=== PATIENT | female | born 1930 | race Two or more races ===

== ENCOUNTER 2019-03-05 07:12 | Inpatient (IN) | payer MEDICARE, MEDICAID ==
[2019-03-05] VITALS (16 sets, daily range): BP systolic 80–145; BP diastolic 38–99
[~2019-03-05] VITALS: Ht 167.6 cm; Wt 72.6 kg
[~2019-03-05 07:12] MED LIST: ASCORBIC ACID500 MG ORAL; ATIVAN1 MG ORAL; DONEPEZIL HCL5 M2 ORAL; HYDRALAZINE HCL10 MG ORAL; METOPROLOL TART25 MG ORAL; OMEPRAZOLE20 M2 ORAL; RISPERDAL1 MG PO
[2019-03-05] MEDS ORDERED: Sodium Chloride 2,900 ML IVLG ONE (07:45)
[2019-03-05] MEDS ORDERED: Azithromycin 500 MG in NS 275 ML IV ONE (08:15)
[2019-03-05] MEDS ORDERED: Piperacillin/Tazobactam 3.375 GM in NS 110 ML IVPB ONE (08:15)
[2019-03-05] MEDS ORDERED: Zosyn 3.375gm inj ONE (08:15)
[2019-03-05 08:28] LABS: BASOPHILS % (AUTO) 0.8 % (0.0-2.0); EOSINOPHILS % (AUTO) 0.3 % (0.0-3.0); HEMATOCRIT 48.6 % (37.0-47.0); HEMOGLOBIN 15.8 G/DL (12.0-16.0); LYMPHOCYTES % (AUTO) 15.4 % (20.0-45.0); MEAN CORPUSCULAR VOLUME 89 FL (80-99); MONOCYTES % (AUTO) 6.1 % (1.0-10.0); NEUTROPHILS % (AUTO) 77.4 % (45.0-75.0); PLATELET COUNT 234 K/UL (150-450); RED BLOOD COUNT 5.46 M/UL (4.20-5.40); RED CELL DISTRIBUTION WIDTH 14.2 % (11.6-14.8); WHITE BLOOD COUNT 7.9 K/UL (4.8-10.8)
[2019-03-05 08:29] LABS: APPEARANCE,URINE SLIGHTLY CLOUDY; BILIRUBIN, URINE NEGATIVE (NEGATIVE); GLUCOSE, URINE (UA) NEGATIVE (NEGATIVE); KETONES,URINE NEGATIVE (NEGATIVE); LEUKOCYTE ESTERASE ,URINE 3+ (NEGATIVE); NITRITE,URINE NEGATIVE (NEGATIVE); PH,URINE 7 (4.5-8.0); PROTEIN,URINE 3+ (NEGATIVE); UROBILINOGEN,URINE NORMAL MG/DL (0.0-1.0)
[2019-03-05 08:38] LABS: ANION GAP 9 mmol/L (5-15); BLOOD UREA NITROGEN 21 mg/dL (7-18); CALCIUM 7.2 MG/DL (8.5-10.1); CARBON DIOXIDE 24 MMOL/L (21-32); CHLORIDE 109 MMOL/L (98-107); CREATININE 0.6 MG/DL (0.55-1.30); POTASSIUM 3.4 MMOL/L (3.5-5.1); SODIUM 142 MMOL/L (136-145)
[2019-03-05 08:39] LABS: COLOR,URINE YELLOW
[2019-03-05] MEDS ORDERED: Versed 50mg/D5W 100ml 100 ML IV ONE ×2 (08:45→10:00)
[2019-03-05 08:53] LABS: ALANINE AMINOTRANSFERASE 45 U/L (12-78); ALBUMIN 2.5 G/DL (3.4-5.0); ALBUMIN/GLOBULIN RATIO 0.7 (1.0-2.7); ALKALINE PHOSPHATASE 122 U/L (46-116); ASPARTATE AMINO TRANSFERASE 40 U/L (15-37); BILIRUBIN,TOTAL 0.5 MG/DL (0.2-1.0); CKMB 0.6 NG/ML (0.0-3.6); CREATINE KINASE 35 U/L (26-308)
[2019-03-05] MEDS ORDERED: Isovue-370 150ml vial INJ PRN (09:15)
--- NOTE | 2019-03-05 09:55 | Emergency Room Report ---
History of Present Illness General Chief Complaint: Dyspnea/Respdistress Source: Medical Record, EMS Present Illness HPI 88-year-old female presents ED for evaluation. Brought in by EMS for respiratory distress. Noted to be hypoxic by nursing staff this morning. EMS states that patient had bilateral crackles in both lungs. Started on CPAP without improvement. Patient in distress upon arrival. Unable to provide any additional history at this time. No reported fevers or chills. No other aggravating or relieving factors. 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 Hx Hypertension: Yes Hx Diabetes: Yes - TYPE 2 Hx Gastrointestinal Problems: Yes - G-TUBE History Of Psychiatric Problem: Yes - BIPOLAR , ALZHEIMERS, ANXIETY Review of Systems All Other Systems: limited Physical Exam Vital Signs Date Time Temp Pulse Resp B/P (MAP) Pulse Ox O2 Delivery O2 Flow Rate FiO2 03/05/19 06:57 62 43 73/46 (55) 94 Bi-pap 03/05/19 07:12 99.8 03/05/19 07:29 100 03/05/19 07:29 45.0 Sp02 EP Interpretation: reviewed, normal, abnormal General Appearance: severe distress, lethargic Head: normocephalic Eyes: bilateral eye normal inspection, bilateral eye PERRL ENT: normal ENT inspection Neck: normal inspection Respiratory: accessory muscle use, crackles Cardiovascular #1: tachycardia Gastrointestinal: normal inspection Rectal: deferred Genitourinary: no CVA tenderness Musculoskeletal: normal inspection Neurologic: other - nonverbal Psychiatric: other - nonverbal Skin: normal inspection Lymphatic: normal inspection Procedures Intubation Intubation : Consent: Verbal Intubation Method: orotracheal Tube Size (cm): 7.5 Medications: Etomidate, Rocuronium Breath Sounds after Intubation: equal Intubation Complications: no complications Post Intubation Xray: Yes Attempts: One Patient Tolerated: Well Complications: None Medical Decision Making Diagnostic Impression: Primary Impression: Respiratory distress Additional Impressions: Sepsis Qualified Codes: A41.9 - Sepsis, unspecified organism UTI (urinary tract infection) Qualified Codes: N39.0 - Urinary tract infection, site not specified Pneumonia Qualified Codes: J18.1 - Lobar pneumonia, unspecified organism ER Course Hospital Course 88-year-old F presenting to ED with respiratory distress, hypoxia Differential diagnoses include: Pneumonia, CHF exacerbation, pneumothorax, fluid overload Clinical course Patient placed on stretcher. Immediately intubated for airway protection. After initial history and physical, I ordered nebulizer treatments. I ordered labs, IV fluids, EKG, chest x-ray, blood cultures, UA, ABG. Labs -no leukocytosis noted, hemoglobin/hematocrit stable, electrolytes within normal limits, lactic 2.7, UA + bacteria ABG - pH 7.2, PCO2 45, O2 sat 99.4 on ventilator acidosis likely metabolic due to sepsis CXR -intubated, no obvious infiltrate CTA -no evidence of PE. Left perihilar infiltrate Given 30 cc/kg fluid bolus. Maintenance fluids started. Given broad-spectrum antibiotics. Case discussed with Dr. Sotomayor and he agreed to the patient to his service for further care and support I feel this is a highly complex case requiring extensive working including EKG/ Rhythm strip, Xray/CT/US, Blood/urine lab work, repeat exams while in ED, and administration of strong opiates/narcotics for pain control, admission to hospital or close patient follow up. Diagnosis - pneumonia, respiratory distress, sepsis, UTI Patient admitted to ICU in critical conditon Labs Test 03/05/19 07:00 03/05/19 07:28 03/05/19 09:13 White Blood Count 7.9 K/UL (4.8-10.8) Red Blood Count 5.46 M/UL (4.20-5.40) Hemoglobin 15.8 G/DL (12.0-16.0) Hematocrit 48.6 % (37.0-47.0) Mean Corpuscular Volume 89 FL (80-99) Mean Corpuscular Hemoglobin 28.9 PG (27.0-31.0) Mean Corpuscular Hemoglobin Concent 32.5 G/DL (32.0-36.0) Red Cell Distribution Width 14.2 % (11.6-14.8) Platelet Count 234 K/UL (150-450) Mean Platelet Volume 6.8 FL (6.5-10.1) Neutrophils (%) (Auto) 77.4 % (45.0-75.0) Lymphocytes (%) (Auto) 15.4 % (20.0-45.0) Monocytes (%) (Auto) 6.1 % (1.0-10.0) Eosinophils (%) (Auto) 0.3 % (0.0-3.0) Basophils (%) (Auto) 0.8 % (0.0-2.0) Sodium Level 142 MMOL/L (136-145) Potassium Level 3.4 MMOL/L (3.5-5.1) Chloride Level 109 MMOL/L (98-107) Carbon Dioxide Level 24 MMOL/L (21-32) Anion Gap 9 mmol/L (5-15) Blood Urea Nitrogen 21 mg/dL (7-18) Creatinine 0.6 MG/DL (0.55-1.30) Estimat Glomerular Filtration Rate mL/min (>60) Glucose Level 168 MG/DL (74-106) Lactic Acid Level 2.70 mmol/L (0.4-2.0) Calcium Level 7.2 MG/DL (8.5-10.1) Total Bilirubin 0.5 MG/DL (0.2-1.0) Aspartate Amino Transf (AST/SGOT) 40 U/L (15-37) Alanine Aminotransferase (ALT/SGPT) 45 U/L (12-78) Alkaline Phosphatase 122 U/L (46-116) Total Creatine Kinase 35 U/L (26-308) Creatine Kinase MB 0.6 NG/ML (0.0-3.6) Creatine Kinase MB Relative Index 1.7 Troponin I 0.015 ng/mL (0.000-0.056) Pro-B-Type Natriuretic Peptide 403 pg/mL (0-125) Total Protein 6.3 G/DL (6.4-8.2) Albumin 2.5 G/DL (3.4-5.0) Globulin 3.8 g/dL Albumin/Globulin Ratio 0.7 (1.0-2.7) Urine Color Yellow Urine Appearance Slightly cloudy Urine pH 7 (4.5-8.0) Urine Specific [place] 1.010 (1.005-1.035) Urine Protein 3+ (NEGATIVE) Urine Glucose (UA) Negative (NEGATIVE) Urine Ketones Negative (NEGATIVE) Urine Blood 5+ (NEGATIVE) Urine Nitrite Negative (NEGATIVE) Urine Bilirubin Negative (NEGATIVE) Urine Urobilinogen Normal MG/DL (0.0-1.0) Urine Leukocyte Esterase 3+ (NEGATIVE) Urine RBC 15-20 /HPF (0 - 2) Urine WBC 60-80 /HPF (0 - 2) Urine Squamous Epithelial Cells Few /LPF (NONE/OCC) Urine Bacteria Few /HPF (NONE) Arterial Blood pH 7.247 (7.350-7.450) Arterial Blood Partial Pressure CO2 45.2 mmHg (35.0-45.0) Arterial Blood Partial Pressure O2 427.8 mmHg (75.0-100.0) Arterial Blood HCO3 19.2 mmol/L (22.0-26.0) Arterial Blood Oxygen Saturation 99.4 % (95-100) Arterial Blood Base Excess -7.8 (-2-2) Garry Test Positive EKG Diagnostic Results Rate: tachycardiac Rhythm: NSR ST Segments: no acute changes ASA given to the pt in ED: No Rhythm Strip Diag. Results EP Interpretation: yes Rhythm: NSR, no PVC's, no ectopy Chest X-Ray Diagnostic Results Chest X-Ray Diagnostic Results : Chest X-Ray Ordered: Yes # of Views/Limited/Complete: 1 View Indication: Shortness of Breath EP Interpretation: Yes Interpretation: no consolidation, no effusion, no pneumothorax, no acute cardiopulmonary disease, other - intubated Impression: Other - intubated CT/MRI/US Diagnostic Results CT/MRI/US Diagnostic Results : Imaging Test Ordered: CTA Chest Impression no PE. L perihilar infitrate Last Vital Signs Date Time Temp Pulse Resp B/P (MAP) Pulse Ox O2 Delivery O2 Flow Rate FiO2 03/05/19 08:00 101 15 95/65 100 Mechanical Ventilator 03/05/19 07:29 45.0 100 03/05/19 07:12 99.8 Status: improved Disposition: ADMITTED INPATIENT Condition: Critical Referrals: NON PHYSICIAN (PCP) Leoncio Calhoun MD Mar 05, 2019 09:55
--- NOTE | 2019-03-05 10:18 | Diagnostic Imaging Report ---
EXAM: CT Chest With Intravenous Contrast CLINICAL HISTORY: SOB TECHNIQUE: Axial computed tomography images of the chest with intravenous contrast during the arterial phase of enhancement. CTDI is 39.24 mGy and DLP is 1282 mGy-cm. One or more of the following dose reduction techniques were used: automated exposure control, adjustment of the mA and/or kV according to patient size, use of iterative reconstruction technique. COMPARISON: No relevant prior studies available. FINDINGS: There is no clear central PE on motion limited exam. There is mild aortic atherosclerosis. No dissection or other acute syndrome. No aneurysm. Cardiac size is borderline. Appropriately positioned endotracheal tube. The left lung demonstrates a perihilar airspace infiltrate. Consolidation is most pronounced in the upper lobe and atelectasis in the lower lobe. Diffuse bronchial wall thickening. Enlarged, multinodular thyroid gland. Operative changes of the stomach with PEG tube. Cholecystectomy. Multilevel thoracic ankylosis/hyperostosis. No acute fracture. IMPRESSION: No clear PE on motion limited assessment. Left perihilar airspace infiltrate suggesting pneumonitis. Bronchial wall thickening likely contributes to atelectasis, most pronounced to the LLL. Appropriately positioned ET tube. Enlarged, multinodular thyroid gland and other incidental findings as above.
[2019-03-05] MEDS: Albuterol/Ipratropium 3ml neb HHN SCH ×8 (10:45→20:14)
[2019-03-05] MEDS ORDERED: Acetaminophen 650 MG SUPP RECTAL ONE ×2 (14:22→14:30)
--- NOTE | 2019-03-05 15:48 | Consultation ---
History of Present Illness General Date patient seen: Mar 05, 2019 Time patient seen: 14:00 Chief Complaint: resp failure Referring physician: Dr Honeycutt Reason for Consultation: resp failure, intubated Present Illness HPI 88 years old female with PMH of diabetes mellitus, hypertension, dementia, dysphagia, G-tube, psychiatric history, resident of [facility], was brought for evaluation due to respiratory distress. Patient noted to be hypoxic by nursing staff earlier that morning. No reported fever or chills from the [facility] facility. Patient started on BiPAP by paramedics without significant improvement. Patient was in respiratory distress upon arrival to ED. Upon evaluation patient had low-grade fever , she was tachypneic with respiratory rate 43 , blood pressure was 73/46 . Patient was placed on a BiPAP initially, but required emergency oral oral intubation . Chest x-ray confirmed ET tube placement. Chest x-ray showed no obvious infiltrate . CTA showed no clear PE. Left basilar airspace infiltrate suggesting pneumonia versus pneumonitis Bronchial valve thickening , likely contributing to atelectasis most pronounced in the left lower lobe. Appropriately positioned ET tube. Enlarged multinodular thyroid gland ABG on intubation revealed evidence of respiratory acidosis with pH 7.24 PCO2 45, pulse oximetry was appropriate. No leukocytosis, stable hemoglobin and hematocrit. Lactic acid 2.7. Potassium 3.4. BUN 21, creatinine 0.6 , glucose 168 Troponin negative. proBNP 403 EKG revealed sinus tachycardia no acute ischemic changes Calcium 7.2. AST 40, ALT 45, alkaline phosphatase 122. Albumin 2.5 9. Urinalysis revealed evidence of pyuria, +3 leukocyte esterase and few bacteria. In the emergency department patient received fluid resuscitation, pancultured and admitted for further management to intensive care unit Allergies: Coded Allergies: No Known Allergies (Unverified , 03/05/19) Medication History Scheduled Ascorbic Acid* (Ascorbic Acid*), 500 MG ORAL DAILY, (Reported) Donepezil Hcl* (Donepezil Hcl*), 5 MG ORAL DAILY, (Reported) Lorazepam* (Ativan*), 1 MG ORAL EVERY 12 HOURS, (Reported) Metoprolol Tartrate* (Metoprolol Tartrate*), 25 MG ORAL EVERY 8 HOURS, (Reported ) Omeprazole (Omeprazole), 20 MG ORAL DAILY, (Reported) Risperidone* (Risperdal*), 1 MG PO BEDTIME, (Reported) Scheduled PRN Hydralazine Hcl* (Hydralazine Hcl*), 10 MG ORAL EVERY 6 HOURS PRN for For High Blood Pressure, (Reported) Patient History Healthcare decision maker Resuscitation status Advanced Directive on File Review of Systems ROS Narrative unable to access due to patient medical condition Physical Exam General Appearance: other - sedated, bedridden, elderly , intubated female in mild distress on michael AC 450-40-18 Lines, tubes and drains: peripheral HEENT: normocephalic, atraumatic, anicteric, other - OP with ET in palce, intact Neck: non-tender, normal inspection Respiratory/Chest: crackles/rales - few diffused crackles , other - scattered rhonchi Cardiovascular/Chest: normal rate - SR on tele Abdomen: normal bowel sounds, non tender, soft, feeding tube - G tube Genitourinary/Rectal: limon Skin Exam: warm/dry Neurologic: abnormal gait, other - sedated Musculoskeletal: atrophy - BLE Last 24 Hour Vital Signs Date Time Temp Pulse Resp B/P (MAP) Pulse Ox O2 Delivery O2 Flow Rate FiO2 03/05/19 15:07 100.9 95 17 95/41 100 Mechanical Ventilator 45.0 40 03/05/19 14:00 98.6 94 18 102/38 98 Mechanical Ventilator 45.0 100 03/05/19 13:02 89 24 100 03/05/19 13:00 98.3 93 20 102/95 99 Mechanical Ventilator 45.0 40 03/05/19 12:35 90 22 100 Mechanical Ventilator 45.0 40 03/05/19 12:00 99.0 90 20 105/58 100 Mechanical Ventilator 45.0 100 03/05/19 12:00 89 20 100 Mechanical Ventilator 45.0 40 03/05/19 11:00 99.4 88 24 119/85 88 Mechanical Ventilator 03/05/19 11:00 90 28 100 03/05/19 10:30 98.3 89 24 124/66 100 Mechanical Ventilator 45.0 100 03/05/19 10:00 98.3 88 24 120/49 100 Mechanical Ventilator 45.0 100 03/05/19 09:30 98 22 145/89 100 Mechanical Ventilator 45.0 100 03/05/19 09:00 113 22 100 03/05/19 09:00 98.7 97 25 138/99 100 Mechanical Ventilator 45.0 100 03/05/19 08:30 98 28 136/73 100 Mechanical Ventilator 45.0 100 03/05/19 08:00 101 15 95/65 100 Mechanical Ventilator 03/05/19 07:29 103 22 100 Mechanical Ventilator 45.0 100 03/05/19 07:29 100 20 100 03/05/19 07:12 99.8 107 16 90/60 99 Mechanical Ventilator 03/05/19 07:12 107 16 Mechanical Ventilator 03/05/19 06:57 62 43 73/46 (55) 94 Bi-pap Laboratory Tests Test 03/05/19 07:00 03/05/19 07:28 03/05/19 09:13 03/05/19 10:10 White Blood Count 7.9 K/UL (4.8-10.8) Red Blood Count 5.46 M/UL (4.20-5.40) H Hemoglobin 15.8 G/DL (12.0-16.0) Hematocrit 48.6 % (37.0-47.0) H Mean Corpuscular Volume 89 FL (80-99) Mean Corpuscular Hemoglobin 28.9 PG (27.0-31.0) Mean Corpuscular Hemoglobin Concent 32.5 G/DL (32.0-36.0) Red Cell Distribution Width 14.2 % (11.6-14.8) Platelet Count 234 K/UL (150-450) Mean Platelet Volume 6.8 FL (6.5-10.1) Neutrophils (%) (Auto) 77.4 % (45.0-75.0) H Lymphocytes (%) (Auto) 15.4 % (20.0-45.0) L Monocytes (%) (Auto) 6.1 % (1.0-10.0) Eosinophils (%) (Auto) 0.3 % (0.0-3.0) Basophils (%) (Auto) 0.8 % (0.0-2.0) Sodium Level 142 MMOL/L (136-145) Potassium Level 3.4 MMOL/L (3.5-5.1) L Chloride Level 109 MMOL/L (98-107) H Carbon Dioxide Level 24 MMOL/L (21-32) Anion Gap 9 mmol/L (5-15) Blood Urea Nitrogen 21 mg/dL (7-18) H Creatinine 0.6 MG/DL (0.55-1.30) Estimat Glomerular Filtration Rate mL/min (>60) Glucose Level 168 MG/DL (74-106) H Lactic Acid Level 2.70 mmol/L (0.4-2.0) H 3.30 mmol/L (0.66-2.22) H Calcium Level 7.2 MG/DL (8.5-10.1) L Total Bilirubin 0.5 MG/DL (0.2-1.0) Aspartate Amino Transf (AST/SGOT) 40 U/L (15-37) H Alanine Aminotransferase (ALT/SGPT) 45 U/L (12-78) Alkaline Phosphatase 122 U/L (46-116) H Total Creatine Kinase 35 U/L (26-308) Creatine Kinase MB 0.6 NG/ML (0.0-3.6) Creatine Kinase MB Relative Index 1.7 Troponin I 0.015 ng/mL (0.000-0.056) Pro-B-Type Natriuretic Peptide 403 pg/mL (0-125) H Total Protein 6.3 G/DL (6.4-8.2) L Albumin 2.5 G/DL (3.4-5.0) L Globulin 3.8 g/dL Albumin/Globulin Ratio 0.7 (1.0-2.7) L Urine Color Yellow Urine Appearance Slightly cloudy Urine pH 7 (4.5-8.0) Urine Specific [place] 1.010 (1.005-1.035) Urine Protein 3+ (NEGATIVE) H Urine Glucose (UA) Negative (NEGATIVE) Urine Ketones Negative (NEGATIVE) Urine Blood 5+ (NEGATIVE) H Urine Nitrite Negative (NEGATIVE) Urine Bilirubin Negative (NEGATIVE) Urine Urobilinogen Normal MG/DL (0.0-1.0) Urine Leukocyte Esterase 3+ (NEGATIVE) H Urine RBC 15-20 /HPF (0 - 2) H Urine WBC 60-80 /HPF (0 - 2) H Urine Squamous Epithelial Cells Few /LPF (NONE/OCC) Urine Bacteria Few /HPF (NONE) Arterial Blood pH 7.247 (7.350-7.450) Arterial Blood Partial Pressure CO2 45.2 mmHg (35.0-45.0) H Arterial Blood Partial Pressure O2 427.8 mmHg (75.0-100.0) H Arterial Blood HCO3 19.2 mmol/L (22.0-26.0) L Arterial Blood Oxygen Saturation 99.4 % (95-100) Arterial Blood Base Excess -7.8 (-2-2) L Garry Test Positive Height (Feet): 5 Height (Inches): 6.00 Weight (Pounds): 210 Medications Current Medications Medications (Trade) Dose Ordered Sig/Judy Route PRN Reason Start Time Stop Time Status Last Admin Dose Admin Albuterol/ Ipratropium (Albuterol/ Ipratropium) 3 ml Q15M HHN 03/05/19 10:00 03/10/19 09:59 03/05/19 12:55 Iopamidol (Isovue-370 150ml) 150 ml NOW PRN INJ Radiology Procedure 03/05/19 09:15 03/07/19 09:12 Sodium Chloride 1,000 ml @ 200 mls/hr Q5H IV 03/05/19 09:30 04/04/19 09:29 03/05/19 09:30 Assessment/Plan Status Narrative ASSESSMENT Acute hypoxemic respiratory failure requiring intubation Sepsis Probable UTI Probable pneumonia : HCAP vs aspiration Dysphagia, G-tube Acute toxic metabolic encephalopathy Diabetes mellitus History of hypertension Dementia Multinodular thyroid goiter PLAN OF CARE ICU status Vent support , pulmonary toilet f/up with ABG and CXR and titrate settings based on ABG as needed dc Fentanyl gtt now broad-spectrum abx , f/up with CX ID consult IVF with K keep n.p.o. for now strict aspiration precaution monitor renal parameters, electrolytes , correct electrolytes further as needed DVT , GI prophylaxis BS management with sliding scale of insulin as needed , check hemoglobin A1c monitor BP closely pain management bowel regimen supportive care case discussed and evaluated by supervising physician Magaly Chauhan NP Mar 05, 2019 15:48
[2019-03-05] MEDS ORDERED: Miralax 17gm pkt ORAL PRN (16:00)
[2019-03-05] MEDS ORDERED: Nitroglycerin Subl 0.4mg tab SL PRN (16:00)
[2019-03-05] MEDS ORDERED: Albuterol/Ipratropium 3ml neb HHN PRN (16:00)
[2019-03-05] MEDS ORDERED: LORazepam 1mg tab ORAL PRN (16:00)
[2019-03-05] MEDS ORDERED: Morphine Sulfate 2mg/ml Inj(IV/IM USE ONLY) IVP PRN (16:00)
[2019-03-05] MEDS: NovoLOG Insulin Flexpen SUBQ SCH ×2 (16:30→21:01)
[2019-03-05] MEDS: D5 1/2NS w/KCl 20mEq 1,000 ML IV SCH (17:04)
[2019-03-05] MEDS ORDERED: Vancomycin 1.5gm Premix IVPB ONE (18:00)
[2019-03-05] MEDS: Piperacillin/Tazobactam 3.375 GM in NS 110 ML IVPB SCH (18:30)
--- NOTE | 2019-03-05 19:14 | Cardiac Electrophysiology PN ---
Subjective Subjective [id number] Objective Last 24 Hour Vital Signs Date Time Temp Pulse Resp B/P (MAP) Pulse Ox O2 Delivery O2 Flow Rate FiO2 03/05/19 17:10 104 23 100 03/05/19 15:20 101.2 03/05/19 15:07 100.9 95 17 95/41 100 Mechanical Ventilator 45.0 40 03/05/19 14:45 90 26 100 03/05/19 14:00 98.6 94 18 102/38 98 Mechanical Ventilator 45.0 100 03/05/19 13:02 89 24 100 03/05/19 13:00 98.3 93 20 102/95 99 Mechanical Ventilator 45.0 40 03/05/19 12:35 90 22 100 Mechanical Ventilator 45.0 40 03/05/19 12:00 99.0 90 20 105/58 100 Mechanical Ventilator 45.0 100 03/05/19 12:00 89 20 100 Mechanical Ventilator 45.0 40 03/05/19 11:00 99.4 88 24 119/85 88 Mechanical Ventilator 03/05/19 11:00 90 28 100 03/05/19 10:30 98.3 89 24 124/66 100 Mechanical Ventilator 45.0 100 03/05/19 10:00 98.3 88 24 120/49 100 Mechanical Ventilator 45.0 100 03/05/19 09:30 98 22 145/89 100 Mechanical Ventilator 45.0 100 03/05/19 09:00 113 22 100 03/05/19 09:00 98.7 97 25 138/99 100 Mechanical Ventilator 45.0 100 03/05/19 08:30 98 28 136/73 100 Mechanical Ventilator 45.0 100 03/05/19 08:00 101 15 95/65 100 Mechanical Ventilator 03/05/19 07:29 103 22 100 Mechanical Ventilator 45.0 100 03/05/19 07:29 100 20 100 03/05/19 07:12 99.8 107 16 90/60 99 Mechanical Ventilator 03/05/19 07:12 107 16 Mechanical Ventilator 03/05/19 06:57 62 43 73/46 (55) 94 Bi-pap Laboratory Tests Test 03/05/19 07:00 03/05/19 07:28 03/05/19 09:13 03/05/19 10:10 White Blood Count 7.9 K/UL (4.8-10.8) Red Blood Count 5.46 M/UL (4.20-5.40) H Hemoglobin 15.8 G/DL (12.0-16.0) Hematocrit 48.6 % (37.0-47.0) H Mean Corpuscular Volume 89 FL (80-99) Mean Corpuscular Hemoglobin 28.9 PG (27.0-31.0) Mean Corpuscular Hemoglobin Concent 32.5 G/DL (32.0-36.0) Red Cell Distribution Width 14.2 % (11.6-14.8) Platelet Count 234 K/UL (150-450) Mean Platelet Volume 6.8 FL (6.5-10.1) Neutrophils (%) (Auto) 77.4 % (45.0-75.0) H Lymphocytes (%) (Auto) 15.4 % (20.0-45.0) L Monocytes (%) (Auto) 6.1 % (1.0-10.0) Eosinophils (%) (Auto) 0.3 % (0.0-3.0) Basophils (%) (Auto) 0.8 % (0.0-2.0) Sodium Level 142 MMOL/L (136-145) Potassium Level 3.4 MMOL/L (3.5-5.1) L Chloride Level 109 MMOL/L (98-107) H Carbon Dioxide Level 24 MMOL/L (21-32) Anion Gap 9 mmol/L (5-15) Blood Urea Nitrogen 21 mg/dL (7-18) H Creatinine 0.6 MG/DL (0.55-1.30) Estimat Glomerular Filtration Rate mL/min (>60) Glucose Level 168 MG/DL (74-106) H Lactic Acid Level 2.70 mmol/L (0.4-2.0) H 3.30 mmol/L (0.66-2.22) H Calcium Level 7.2 MG/DL (8.5-10.1) L Total Bilirubin 0.5 MG/DL (0.2-1.0) Aspartate Amino Transf (AST/SGOT) 40 U/L (15-37) H Alanine Aminotransferase (ALT/SGPT) 45 U/L (12-78) Alkaline Phosphatase 122 U/L (46-116) H Total Creatine Kinase 35 U/L (26-308) Creatine Kinase MB 0.6 NG/ML (0.0-3.6) Creatine Kinase MB Relative Index 1.7 Troponin I 0.015 ng/mL (0.000-0.056) Pro-B-Type Natriuretic Peptide 403 pg/mL (0-125) H Total Protein 6.3 G/DL (6.4-8.2) L Albumin 2.5 G/DL (3.4-5.0) L Globulin 3.8 g/dL Albumin/Globulin Ratio 0.7 (1.0-2.7) L Urine Color Yellow Urine Appearance Slightly cloudy Urine pH 7 (4.5-8.0) Urine Specific [place] 1.010 (1.005-1.035) Urine Protein 3+ (NEGATIVE) H Urine Glucose (UA) Negative (NEGATIVE) Urine Ketones Negative (NEGATIVE) Urine Blood 5+ (NEGATIVE) H Urine Nitrite Negative (NEGATIVE) Urine Bilirubin Negative (NEGATIVE) Urine Urobilinogen Normal MG/DL (0.0-1.0) Urine Leukocyte Esterase 3+ (NEGATIVE) H Urine RBC 15-20 /HPF (0 - 2) H Urine WBC 60-80 /HPF (0 - 2) H Urine Squamous Epithelial Cells Few /LPF (NONE/OCC) Urine Bacteria Few /HPF (NONE) Arterial Blood pH 7.247 (7.350-7.450) Arterial Blood Partial Pressure CO2 45.2 mmHg (35.0-45.0) H Arterial Blood Partial Pressure O2 427.8 mmHg (75.0-100.0) H Arterial Blood HCO3 19.2 mmol/L (22.0-26.0) L Arterial Blood Oxygen Saturation 99.4 % (95-100) Arterial Blood Base Excess -7.8 (-2-2) L Garry Test Positive Rusty Garsia MD Mar 05, 2019 19:14
[2019-03-05] MEDS: Heparin 5000 units/ml inj SUBQ SCH (21:02)
[2019-03-06] VITALS (42 sets, daily range): BP systolic 82–125; BP diastolic 40–67
[2019-03-06] MEDS: Piperacillin/Tazobactam 3.375 GM in NS 110 ML IVPB SCH ×3 (01:02→17:01)
[2019-03-06] MEDS: D5 1/2NS w/KCl 20mEq 1,000 ML IV SCH ×3 (02:04→23:35)
--- NOTE | 2019-03-06 02:05 | Emergency Room Report ---
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, HTN Hx Hypertension: Yes Hx Diabetes: Yes - TYPE 2 Hx Cancer: No Hx Gastrointestinal Problems: Yes - G-TUBE History Of Psychiatric Problem: Yes - BIPOLAR , ALZHEIMERS, ANXIETY Hx Neurological Problems: Yes - Dementia, Alzeimer's, Muscle Weakness Physical Exam Vital Signs Date Time Temp Pulse Resp B/P (MAP) Pulse Ox O2 Delivery O2 Flow Rate FiO2 03/05/19 06:57 62 43 73/46 (55) 94 Bi-pap 03/05/19 07:12 99.8 03/05/19 07:29 100 03/05/19 07:29 45.0 Procedures Central Line Central Line : Consent: Emergent Central Line Lumen: triple Maximal Sterile Barrier Tech: yes cap, yes mask, yes sterile gown, yes sterile gloves, yes large sterile sheet, yes hand hygiene, yes chlorhexidine prep No Max Barrier Tech Because: emergency insertion Central Line Postion: femoral (R) Anesthesia: Lidocaine cc's of anesthesia: 10 Complications: none Central Line Post Position: sutured, good blood return Attempts: One Patient Tolerated: Well Complications: None Progress Patient was admitted for a story failure and was intubated. She was hypotensive and needed to be on levo fed. I was asked by primary care doctor to place a central line. There was no family member for consent. Patient unable to give consent. I placed a right femoral central line under sterile condition. No complication. Medical Decision Making Diagnostic Impression: Primary Impression: Respiratory distress Additional Impressions: Sepsis UTI (urinary tract infection) Pneumonia Last Vital Signs Date Time Temp Pulse Resp B/P (MAP) Pulse Ox O2 Delivery O2 Flow Rate FiO2 03/06/19 01:20 80 16 40 03/06/19 00:00 Mechanical Ventilator 03/05/19 23:08 81/42 03/05/19 22:00 100 45.0 03/05/19 15:20 101.2 Disposition: ADMITTED INPATIENT Condition: Critical Referrals: NON PHYSICIAN (PCP) Louie Anderson MD Mar 06, 2019 02:05
--- NOTE | 2019-03-06 03:00 | Consultation ---
DATE OF CONSULTATION: 03/05/2019 CARDIOLOGY CONSULTATION CONSULTING PHYSICIAN: Rusty Garsia M.D. REFERRING PHYSICIAN: Solomon Sotomayor M.D. REASON FOR CONSULTATION: Respiratory failure and hypotension. HISTORY OF PRESENT ILLNESS: The patient is an 88-year-old lady with history of hypertension, diabetes, dementia, dysphagia, status post G-tube placement, resident of longterm facility, who was brought into the emergency room for respiratory distress. The patient was found to be hypoxic and then started on BiPAP by paramedics with significant improvement. In the emergency room, the patient underwent emergency intubation with chest x-ray, no obvious infiltrate and CT showed no clear pulmonary embolism. The patient was admitted to intensive care unit. At the time of my evaluation, the patient is hypotensive, blood pressure of 80s, already on the ventilator with lactic acid of 2.7. Troponin was negative and EKG shows sinus tachycardia with no acute ischemic changes. REVIEW OF SYSTEMS: Cannot be obtained. PAST MEDICAL HISTORY: As mentioned above. FAMILY HISTORY: Noncontributory. SOCIAL HISTORY: She lives in snf. Does not smoke or drink alcohol. MEDICATIONS: Per reconciliation. PHYSICAL EXAMINATION: VITAL SIGNS: Show blood pressure of 80/60, pulse is 104, temperature is 101.2. HEAD AND NECK: Shows no JVD. She is orally intubated. LUNGS: Coarse rhonchi. CARDIOVASCULAR: Shows regular S1 and S2 with no murmur or gallop. ABDOMEN: Soft with PEG in place. EXTREMITIES: 1+ pitting edema. LABORATORY AND DIAGNOSTIC DATA: Labs show white count 7.9, hemoglobin of 15.8, hematocrit 48.6, platelet count 234,000. Sodium 142, potassium 3.4, BUN of 21, creatinine 0.6, lactic acid 3.3. Troponin is negative. ASSESSMENT AND PLAN: 1. Hypotension due to septic shock. Lactic acid is 3.3. The patient also has clearly UTI. We will get a stat echocardiogram and give the patient 500 mL of normal saline and after central line placement, we will start the patient on Levophed. The patient is already on Zosyn and vancomycin that will be continued. 2. Respiratory failure, currently on the ventilator. Management of Dr. Patel. 3. UTI. 4. Dysphagia, status post PEG placement. 5. History of encephalopathy. 6. Diabetes. 7. Multinodular toxic goiter. Thank you very much, Dr. Sotomayor, for allowing me to participate in the care of this critically ill lady. Please do not hesitate to contact me for any questions regarding my evaluation. The case was discussed with the ICU nurse, Magaly Chauhan. Rusty Garsia M.D. DR: Zenon JOB#: [id number] CC:
[2019-03-06] MEDS: Vancomycin 750mg/NS 275ml IVPB SCH ×4 (05:45→17:01)
[2019-03-06] MEDS: NovoLOG Insulin Flexpen SUBQ SCH ×4 (05:46→20:58)
[2019-03-06] MEDS: Albuterol/Ipratropium 3ml neb HHN SCH ×4 (07:35→19:35)
[2019-03-06 07:39] LABS: BASOPHILS % (AUTO) 0.5 % (0.0-2.0); EOSINOPHILS % (AUTO) 1.1 % (0.0-3.0); HEMOGLOBIN 10.7 G/DL (12.0-16.0); LYMPHOCYTES % (AUTO) 16.2 % (20.0-45.0); MEAN CORPUSCULAR VOLUME 88 FL (80-99); MONOCYTES % (AUTO) 9.3 % (1.0-10.0); NEUTROPHILS % (AUTO) 72.8 % (45.0-75.0); PLATELET COUNT 171 K/UL (150-450); RED BLOOD COUNT 3.65 M/UL (4.20-5.40); RED CELL DISTRIBUTION WIDTH 14.2 % (11.6-14.8); WHITE BLOOD COUNT 8.5 K/UL (4.8-10.8)
[2019-03-06 08:07] LABS: ANION GAP 8 mmol/L (5-15); BLOOD UREA NITROGEN 11 mg/dL (7-18); CALCIUM 7.8 MG/DL (8.5-10.1); CARBON DIOXIDE 23 MMOL/L (21-32); CHLORIDE 107 MMOL/L (98-107); CHOLESTEROL 72 MG/DL (< 200); CREATININE 0.6 MG/DL (0.55-1.30); HDL CHOLESTEROL 30 MG/DL (40-60); POTASSIUM 3.4 MMOL/L (3.5-5.1); SODIUM 138 MMOL/L (136-145); TRIGLYCERIDES 61 MG/DL (30-150)
--- NOTE | 2019-03-06 08:52 | Pulmonolgy Critical Care Note ---
Critical Care - Asmt/Plan Assessment/Plan: ASSESSMENT Acute hypoxemic respiratory failure requiring intubation Sepsis with shock Probable UTI Probable pneumonia : HCAP vs aspiration Dysphagia, G-tube Acute toxic metabolic encephalopathy due to septic shock on underlying dementia Diabetes mellitus History of hypertension Multinodular thyroid goiter Anemia Hypo Ca PLAN OF CARE ICU status Vent support , pulmonary toilet f/up with ABG and CXR and titrate settings based on ABG as needed now on pressors, titrate to keep mean arterial BBP above 65 closely monitor HD status cardio eval appreciated ECHO pending alctic acid down to normal broad-spectrum abx , f/up with CX ID consult IVF with K keep n.p.o. for now strict aspiration precaution monitor renal parameters, electrolytes , correct electrolytes further as needed Ca still low, but with some improvement probably due to dehydration , monitor DVT , GI prophylaxis BS management with sliding scale of insulin as needed , hemoglobin A1c -5.8 monitor HH with goal to keep Hgb above 7 pain management bowel regimen supportive care case discussed and evaluated by supervising physician Critical Care - Objective Last 24 Hour Vital Signs Date Time Temp Pulse Resp B/P (MAP) Pulse Ox O2 Delivery O2 Flow Rate FiO2 03/06/19 07:15 72 14 100 Mechanical Ventilator 40 03/06/19 07:10 72 18 40 03/06/19 07:00 68 14 100 Mechanical Ventilator 40 03/06/19 06:30 98.2 73 21 89/48 (62) 100 03/06/19 06:00 102/48 03/06/19 06:00 74 20 102/48 (66) 100 03/06/19 05:30 75 21 110/48 (68) 100 03/06/19 05:08 72 16 40 03/06/19 05:00 107/50 03/06/19 05:00 74 22 107/50 (69) 100 03/06/19 04:30 74 21 99/45 (63) 100 03/06/19 04:00 Mechanical Ventilator 03/06/19 04:00 74 03/06/19 04:00 127/54 03/06/19 04:00 76 22 109/49 (69) 100 03/06/19 04:00 40 03/06/19 03:30 71 19 121/54 (76) 100 03/06/19 03:17 75 15 40 03/06/19 03:00 78 17 106/40 (62) 100 03/06/19 03:00 106/40 03/06/19 02:30 77 22 98/52 (67) 99 03/06/19 02:00 93/47 03/06/19 02:00 78 21 93/47 (62) 99 03/06/19 01:30 76 20 104/47 (66) 100 03/06/19 01:20 80 16 40 03/06/19 01:00 77 22 88/48 (61) 99 03/06/19 01:00 88/48 03/06/19 00:30 77 19 97/52 (67) 100 03/06/19 00:00 Mechanical Ventilator 03/06/19 00:00 40 03/06/19 00:00 119/58 03/06/19 00:00 98.0 82 19 119/58 (78) 100 03/06/19 00:00 84 03/05/19 23:30 83 16 40 03/05/19 23:30 76 16 85/43 (57) 100 03/05/19 23:08 81/42 03/05/19 23:00 76 17 92/44 (60) 100 03/05/19 22:00 79 17 100 Mechanical Ventilator 45.0 100 03/05/19 22:00 79 17 81/44 (56) 100 03/05/19 21:57 79 17 40 03/05/19 21:00 80 18 88/46 (60) 99 03/05/19 20:26 88 14 100 Mechanical Ventilator 45.0 40 03/05/19 20:14 89 16 100 Mechanical Ventilator 45.0 40 03/05/19 20:12 86 17 100 03/05/19 20:00 87 03/05/19 20:00 98.6 86 17 80/48 (59) 99 03/05/19 20:00 40 03/05/19 20:00 Mechanical Ventilator 03/05/19 17:10 104 23 100 03/05/19 15:30 Mechanical Ventilator 03/05/19 15:20 101.2 03/05/19 15:07 100.9 95 17 95/41 100 Mechanical Ventilator 45.0 40 03/05/19 14:45 90 26 100 03/05/19 14:00 98.6 94 18 102/38 98 Mechanical Ventilator 45.0 100 03/05/19 13:02 89 24 100 03/05/19 13:00 98.3 93 20 102/95 99 Mechanical Ventilator 45.0 40 03/05/19 12:35 90 22 100 Mechanical Ventilator 45.0 40 03/05/19 12:00 99.0 90 20 105/58 100 Mechanical Ventilator 45.0 100 03/05/19 12:00 89 20 100 Mechanical Ventilator 45.0 40 03/05/19 11:00 99.4 88 24 119/85 88 Mechanical Ventilator 03/05/19 11:00 90 28 100 03/05/19 10:30 98.3 89 24 124/66 100 Mechanical Ventilator 45.0 100 03/05/19 10:00 98.3 88 24 120/49 100 Mechanical Ventilator 45.0 100 03/05/19 09:30 98 22 145/89 100 Mechanical Ventilator 45.0 100 03/05/19 09:00 113 22 100 03/05/19 09:00 98.7 97 25 138/99 100 Mechanical Ventilator 45.0 100 Objective: General Appearance: bedridden, elderly , intubated female in NAD s on michael AC 450-40-14 Lines, tubes and drains: CL R femoral TL intact, HEENT: normocephalic, atraumatic, anicteric, other - OP with ET in place, intact Neck: non-tender, normal inspection Respiratory/Chest: few scattered rhonchi Cardiovascular/Chest: normal rate - SR on tele Abdomen: normal bowel sounds, non tender, soft, G tube Genitourinary/Rectal: Maldonado Skin Exam: warm/dry Neurologic: abnormal gait, bedridden Musculoskeletal: atrophy BLE Accucheck: 145 Critical Care - Subjective ROS Limited/Unobtainable: Yes Interval Events: remains in ICU, intubated, on Levophed afebrile, no leukocytosis, fever resolved, on empiric abx, Hgb down to 10.7 Condition: critical IV Access: central - R femoral TL intact EKG Rhythm: Sinus Rhythm FI02: 40 Vent Support Breath Rate: 14 Vent Support Mode: AC Vent Tidal Volume: 450 Sputum Amount: None PEEP: 5.0 PIP: 23 Fluids: D51/2 NS + 20 KCL at 100 Drips: Levophed gtt at 8 mcg /min I&O: Intake and Output 6/15/19 6/16/19 19:00 07:00 Intake Total 4498.75 ml 1401.25 ml Output Total 45 ml 595 ml Balance 4453.75 ml 806.25 ml Intake IV Total 4498.75 ml 1401.25 ml Output Urine Total 45 ml 595 ml # Voids 2 # Bowel Movements 1 1 CXR: CTA chest - Left perihilar airspace infiltrate suggesting pneumonitis. Bronchial wall thickening likely contributes to atelectasis, most pronounced to the LLL. ET-Tube: 7.5 ET Position: 23 Magaly Chauhan NP Mar 06, 2019 08:52
--- NOTE | 2019-03-06 09:29 | Diagnostic Imaging Report ---
EXAM: XR Chest, 1 View. CLINICAL HISTORY: SOB TECHNIQUE: Frontal view of the chest. COMPARISON: Comparison is made to prior exam dated 03/05/19 at 0728 hrs. FINDINGS: Lungs: Slightly increased patchy airspace opacities within the left lung may be due to aspiration or a developing pneumonia. Lungs are otherwise well aerated. Mild bibasilar atelectasis. Pleural spaces: Unremarkable. No pneumothorax. Heart: Unremarkable. No cardiomegaly. Mediastinum: Endotracheal tube tip is approximately 1 cm above the isrrael. Consider retraction and repositioning. Bones: Unremarkable. No acute fracture. IMPRESSION: Patchy left lung airspace opacities may be secondary to aspiration or a developing pneumonia. Endotracheal tube tip is 1 cm above the isrrael. Consider retracting by 2- 3 cm.
[2019-03-06] MEDS: Heparin 5000 units/ml inj SUBQ SCH ×2 (09:35→21:00)
--- NOTE | 2019-03-06 15:27 | History & Physical ---
History and Physical History & Physicial Dictated for Int Med-Dr Sotomayor no. [id number]. Harsha Arora MD Mar 06, 2019 15:27
[2019-03-06] MEDS ORDERED: Tubing IV Secondary IV ONE (15:45)
[2019-03-06] MEDS ORDERED: NS 275ml ONE (15:45)
[2019-03-06] MEDS ORDERED: NS 500ML ONE (15:45)
--- NOTE | 2019-03-06 15:57 | Cardiac Electrophysiology PN ---
Assessment/Plan Assessment/Plan 1. Septic shock. Lactic acid is 3.3. The patient also has clearly UTI. Echocardiogram EF 50%. The patient is already on Zosyn and vancomycin 2. Respiratory failure, currently on the ventilator. Management of Dr. Patel. 3. UTI. 4. Dysphagia, status post PEG placement. 5. History of encephalopathy. 6. Diabetes. 7. Multinodular toxic goiter. DW RN Subjective Subjective Intubated in ICU on 8mcg of Levo. Remained in SR Objective Last 24 Hour Vital Signs Date Time Temp Pulse Resp B/P (MAP) Pulse Ox O2 Delivery O2 Flow Rate FiO2 03/06/19 15:07 77 18 100 Mechanical Ventilator 40 03/06/19 15:00 81 20 124/67 (86) 100 03/06/19 14:59 77 19 100 Mechanical Ventilator 40 03/06/19 14:57 78 18 40 03/06/19 14:00 82 20 112/62 (79) 100 03/06/19 13:00 80 21 113/55 (74) 100 03/06/19 12:42 83 20 40 03/06/19 12:30 82 21 110/54 (72) 99 03/06/19 12:03 75 19 100 Mechanical Ventilator 40 03/06/19 12:00 Mechanical Ventilator 03/06/19 12:00 82 20 104/52 (69) 99 03/06/19 12:00 40 03/06/19 12:00 80 03/06/19 11:54 81 21 99 Mechanical Ventilator 40 03/06/19 11:00 76 21 99/51 (67) 99 03/06/19 10:38 72 15 40 03/06/19 10:30 80 20 104/50 (68) 99 03/06/19 10:00 76 19 110/51 (70) 100 03/06/19 09:33 68 17 40 03/06/19 09:30 71 17 103/46 (65) 100 03/06/19 09:00 73 17 104/48 (66) 100 03/06/19 08:30 76 18 99/52 (68) 100 03/06/19 08:00 Mechanical Ventilator 03/06/19 08:00 40 03/06/19 08:00 80 03/06/19 08:00 76 14 82/45 (57) 100 03/06/19 07:30 68 14 95/48 (64) 100 03/06/19 07:15 72 14 100 Mechanical Ventilator 40 03/06/19 07:10 72 18 40 03/06/19 07:00 71 20 105/47 (66) 100 03/06/19 07:00 68 14 100 Mechanical Ventilator 40 03/06/19 06:30 98.2 73 21 89/48 (62) 100 03/06/19 06:00 102/48 03/06/19 06:00 74 20 102/48 (66) 100 03/06/19 05:30 75 21 110/48 (68) 100 03/06/19 05:08 72 16 40 03/06/19 05:00 107/50 03/06/19 05:00 74 22 107/50 (69) 100 03/06/19 04:30 74 21 99/45 (63) 100 03/06/19 04:00 Mechanical Ventilator 03/06/19 04:00 74 03/06/19 04:00 127/54 03/06/19 04:00 76 22 109/49 (69) 100 03/06/19 04:00 40 03/06/19 03:30 71 19 121/54 (76) 100 03/06/19 03:17 75 15 40 03/06/19 03:00 78 17 106/40 (62) 100 03/06/19 03:00 106/40 03/06/19 02:30 77 22 98/52 (67) 99 03/06/19 02:00 93/47 03/06/19 02:00 78 21 93/47 (62) 99 03/06/19 01:30 76 20 104/47 (66) 100 03/06/19 01:20 80 16 40 03/06/19 01:00 77 22 88/48 (61) 99 03/06/19 01:00 88/48 03/06/19 00:30 77 19 97/52 (67) 100 03/06/19 00:00 Mechanical Ventilator 03/06/19 00:00 40 03/06/19 00:00 119/58 03/06/19 00:00 98.0 82 19 119/58 (78) 100 03/06/19 00:00 84 03/05/19 23:30 83 16 40 03/05/19 23:30 76 16 85/43 (57) 100 03/05/19 23:08 81/42 03/05/19 23:00 76 17 92/44 (60) 100 03/05/19 22:00 79 17 100 Mechanical Ventilator 45.0 100 03/05/19 22:00 79 17 81/44 (56) 100 03/05/19 21:57 79 17 40 03/05/19 21:00 80 18 88/46 (60) 99 03/05/19 20:26 88 14 100 Mechanical Ventilator 45.0 40 03/05/19 20:14 89 16 100 Mechanical Ventilator 45.0 40 03/05/19 20:12 86 17 100 03/05/19 20:00 87 03/05/19 20:00 98.6 86 17 80/48 (59) 99 03/05/19 20:00 40 03/05/19 20:00 Mechanical Ventilator 03/05/19 17:10 104 23 100 Intake and Output 03/05/19 03/06/19 19:00 07:00 Intake Total 4498.75 ml 1401.25 ml Output Total 45 ml 665 ml Balance 4453.75 ml 736.25 ml Intake IV Total 4498.75 ml 1401.25 ml Output Urine Total 45 ml 665 ml # Voids 2 # Bowel Movements 1 1 Laboratory Tests Test 03/05/19 21:50 03/06/19 06:30 03/06/19 07:51 Lactic Acid Level 2.70 mmol/L (0.4-2.0) H 1.30 mmol/L (0.4-2.0) White Blood Count 8.5 K/UL (4.8-10.8) Red Blood Count 3.65 M/UL (4.20-5.40) L Hemoglobin 10.7 G/DL (12.0-16.0) #L Hematocrit 32.0 % (37.0-47.0) #L Mean Corpuscular Volume 88 FL (80-99) Mean Corpuscular Hemoglobin 29.2 PG (27.0-31.0) Mean Corpuscular Hemoglobin Concent 33.3 G/DL (32.0-36.0) Red Cell Distribution Width 14.2 % (11.6-14.8) Platelet Count 171 K/UL (150-450) Mean Platelet Volume 7.6 FL (6.5-10.1) Neutrophils (%) (Auto) 72.8 % (45.0-75.0) Lymphocytes (%) (Auto) 16.2 % (20.0-45.0) L Monocytes (%) (Auto) 9.3 % (1.0-10.0) Eosinophils (%) (Auto) 1.1 % (0.0-3.0) Basophils (%) (Auto) 0.5 % (0.0-2.0) Sodium Level 138 MMOL/L (136-145) Potassium Level 3.4 MMOL/L (3.5-5.1) L Chloride Level 107 MMOL/L (98-107) Carbon Dioxide Level 23 MMOL/L (21-32) Anion Gap 8 mmol/L (5-15) Blood Urea Nitrogen 11 mg/dL (7-18) Creatinine 0.6 MG/DL (0.55-1.30) Estimat Glomerular Filtration Rate mL/min (>60) Glucose Level 155 MG/DL (74-106) H Hemoglobin A1c 5.8 % (4.3-6.0) Calcium Level 7.8 MG/DL (8.5-10.1) L Triglycerides Level 61 MG/DL (30-150) Cholesterol Level 72 MG/DL (< 200) LDL Cholesterol 35 mg/dL (<100) HDL Cholesterol 30 MG/DL (40-60) L Cholesterol/HDL Ratio 2.4 (3.3-4.4) L Thyroid Stimulating Hormone (TSH) 0.669 uiU/mL (0.358-3.740) Arterial Blood pH 7.405 (7.350-7.450) Arterial Blood Partial Pressure CO2 33.7 mmHg (35.0-45.0) L Arterial Blood Partial Pressure O2 125.4 mmHg (75.0-100.0) H Arterial Blood HCO3 20.6 mmol/L (22.0-26.0) L Arterial Blood Oxygen Saturation 98.0 % (95-100) Arterial Blood Base Excess -3.4 (-2-2) L Garry Test Positive Microbiology Date/Time Source Procedure Growth Status 03/05/19 07:00 Blood Blood Culture - Preliminary Resulted 03/05/19 07:00 Blood Blood Culture - Preliminary Resulted 03/05/19 07:28 Urine,Clean Catch Urine Culture - Preliminary Gram Negative Bacillus 1 Resulted Objective HEAD AND NECK: No JVD. She is orally intubated. LUNGS: Coarse rhonchi. CARDIOVASCULAR: Shows regular S1 and S2 with no murmur or gallop. ABDOMEN: Soft with PEG in place. EXTREMITIES: 1+ pitting edema. Rusty Gasria MD Mar 06, 2019 15:57
--- NOTE | 2019-03-06 17:45 | History and Physical Report ---
DATE OF ADMISSION: 03/05/2019 CHIEF COMPLAINT: The patient is an 88-year-old female who presents with a chief complaint of shortness of breath. HISTORY OF PRESENT ILLNESS: The patient is a resident of [facility]. The patient became short of breath on 03/05/2019. EMS was called. The patient was found to be in respiratory distress. The patient was transported to [facility] emergency room. The patient was initially placed on CPAP. The patient was then intubated. The patient is examined in the intensive care unit. The patient is admitted for respiratory failure to rule out pneumonia. REVIEW OF SYSTEMS: Unable to assess secondary to the patient's mental status. PAST MEDICAL HISTORY: Significant for: 1. Hypertension. 2. Renal insufficiency. 3. Diabetes type 2. 4. Alzheimer dementia. 5. Bipolar depression. 6. Sacral decubitus ulcer, stage IV. PAST SURGICAL HISTORY: Significant for PEG placement. CURRENT MEDICATIONS: 1. Aricept 5 mg p.o. daily. 2. Hydralazine 10 mg p.o. q.6 hours p.r.n. 3. Ativan 1 mg p.o. q.12 hours p.r.n. 4. Metoprolol 25 mg p.o. q.8 hours. 5. Omeprazole 20 mg p.o. daily. 6. Risperdal 1 mg p.o. at bedtime. ALLERGIES: No known drug allergies. SOCIAL HISTORY: The patient is single and is a resident of [facility]. The patient denies tobacco or alcohol use. PHYSICAL EXAMINATION: VITAL SIGNS: Temperature 98.2, respirations 21, pulse 73, blood pressure 89/48. GENERAL: The patient is a well-developed and well-nourished female, who is intubated and sedated. HEENT: Eyes pupils equal and responsive to light and accommodation. Extraocular movements are intact. NECK: Supple without lymphadenopathy. CHEST: Crackles in bilateral bases with expiratory wheezes. CARDIOVASCULAR: Regular rhythm and rate. S1 and S2 normal without murmurs, rubs, or gallops. ABDOMEN: Soft, nontender, nondistended. Positive bowel sounds. No evidence of hepatosplenomegaly. Currently, no rebound or guarding noted. EXTREMITIES: Negative for clubbing, cyanosis, or edema. RECTAL/GENITAL: Not performed. NEUROLOGIC: Unable to assess secondary to sedation. LABORATORY STUDIES: WBC 7.9, hemoglobin 15.8, hematocrit 48.6, platelets 234,000. Sodium 142, potassium 3.4, chloride 109, CO2 24, BUN 10, creatinine 0.6, glucose 168. BNP 403. Troponin 0.015. Chest x-ray was reported as patchy opacities in the left lung consistent with pneumonia. ASSESSMENT: This is an 88-year-old female. 1. Respiratory failure. 2. Left pneumonia. 3. Hypertension. 4. Diabetes type 2. 5. Renal insufficiency. 6. Alzheimer dementia. 7. Bipolar depression. 8. Sacral decubitus ulcer, stage IV. TREATMENT: 1. Respiratory failure/pneumonia. A Pulmonary consultation has been obtained with Dr. Jenifer Patel. The patient is currently intubated. The patient has been started empirically on Zosyn and vancomycin. We will follow recommendations of Pulmonary. 2. Hypertension. The patient is currently hypotensive on Levophed. 3. Diabetes type 2. The patient has been placed on NovoLog sliding scale. 4. Renal insufficiency. 5. Alzheimer dementia. Continue Aricept as above. 6. Bipolar depression. Continue Risperdal as above. 7. Sacral decubitus ulcer stage IV. 8. The patient is a Full Code according to the POLST in the chart. Harsha Arora M.D. DR: REDD JOB#: [id number] CC:
[2019-03-06] MEDS ORDERED: Succinylcholine 20mg/ml 10ml vial ONE (19:34)
[2019-03-06] MEDS ORDERED: Etomidate 40mg/20ml Inj IV ONE (19:34)
[2019-03-06] MEDS ORDERED: Zemuron 50mg/5ml Inj IV ONE (19:34)
[2019-03-07] VITALS (31 sets, daily range): BP systolic 87–129; BP diastolic 46–67
[2019-03-07] MEDS: Piperacillin/Tazobactam 3.375 GM in NS 110 ML IVPB SCH ×3 (01:46→17:50)
--- NOTE | 2019-03-07 04:35 | Cardiac Electrophysiology PN ---
Assessment/Plan Assessment/Plan 1. Septic shock. Lactic acid is 3.3. EF 50%. The patient is already on Zosyn and vancomycin 2. Respiratory failure, currently on the ventilator AC 14, PEEP 5 aand Fio2 40% per Dr. Patel. 3. UTI. 4. Dysphagia, status post PEG placement. 5. History of encephalopathy. 6. Diabetes. 7. Multinodular toxic goiter. DW RN Subjective Subjective Intubated in ICU off Levophed since midnight. Remained in SR Objective Last 24 Hour Vital Signs Date Time Temp Pulse Resp B/P (MAP) Pulse Ox O2 Delivery O2 Flow Rate FiO2 03/07/19 04:00 Mechanical Ventilator 03/07/19 04:00 70 03/07/19 04:00 40 03/07/19 04:00 81 21 90/46 (61) 99 03/07/19 03:18 83 24 40 03/07/19 03:00 78 17 87/47 (60) 99 03/07/19 02:00 81 18 96/67 (77) 100 03/07/19 01:35 89 25 40 03/07/19 01:30 81 18 96/67 (77) 100 03/07/19 01:00 81 15 97/51 (66) 99 03/07/19 00:30 81 21 93/46 (62) 100 03/07/19 00:00 84 03/07/19 00:00 Mechanical Ventilator 03/07/19 00:00 99/51 03/07/19 00:00 83 14 100/51 (67) 99 03/07/19 00:00 40 03/06/19 23:45 84 18 100/52 (68) 99 03/06/19 23:30 86 18 105/57 (73) 99 03/06/19 23:24 78 16 40 03/06/19 23:15 78 20 95/47 (63) 99 03/06/19 23:00 77 18 93/47 (62) 99 03/06/19 23:00 95/47 03/06/19 22:45 76 20 99/47 (64) 99 03/06/19 22:30 78 19 102/50 (67) 100 03/06/19 22:15 98.8 75 17 106/55 (72) 100 03/06/19 22:00 106/55 03/06/19 21:20 74 15 40 03/06/19 21:00 103/55 03/06/19 20:00 Mechanical Ventilator 03/06/19 20:00 115/56 03/06/19 20:00 80 03/06/19 19:37 70 14 100 Mechanical Ventilator 40 03/06/19 19:32 78 16 100 Mechanical Ventilator 40 03/06/19 19:31 72 16 40 03/06/19 19:00 125/59 03/06/19 19:00 75 22 125/59 (81) 100 03/06/19 18:30 78 21 124/63 (83) 100 03/06/19 18:00 82 21 114/40 (64) 100 03/06/19 18:00 114/40 03/06/19 17:30 80 20 122/62 (82) 100 03/06/19 17:10 82 17 40 03/06/19 17:01 119/66 03/06/19 17:00 82 21 119/66 (83) 100 03/06/19 16:30 82 20 118/64 (82) 100 03/06/19 16:00 98.8 80 21 124/62 (82) 100 03/06/19 16:00 79 03/06/19 16:00 Mechanical Ventilator 03/06/19 16:00 124/62 03/06/19 16:00 100/60 03/06/19 16:00 40 03/06/19 15:07 77 18 100 Mechanical Ventilator 40 03/06/19 15:00 112/62 03/06/19 15:00 81 20 124/67 (86) 100 03/06/19 14:59 77 19 100 Mechanical Ventilator 40 03/06/19 14:57 78 18 40 03/06/19 14:00 104/53 03/06/19 14:00 82 20 112/62 (79) 100 03/06/19 13:00 80 21 113/55 (74) 100 03/06/19 13:00 113/55 03/06/19 12:42 83 20 40 03/06/19 12:30 82 21 110/54 (72) 99 03/06/19 12:03 75 19 100 Mechanical Ventilator 40 03/06/19 12:00 Mechanical Ventilator 03/06/19 12:00 98.0 82 20 104/52 (69) 99 03/06/19 12:00 40 03/06/19 12:00 104/52 03/06/19 12:00 80 03/06/19 11:54 81 21 99 Mechanical Ventilator 40 03/06/19 11:00 99/51 03/06/19 11:00 76 21 99/51 (67) 99 03/06/19 10:38 72 15 40 03/06/19 10:30 80 20 104/50 (68) 99 03/06/19 10:00 76 19 110/51 (70) 100 03/06/19 10:00 110/51 03/06/19 09:33 68 17 40 03/06/19 09:30 71 17 103/46 (65) 100 03/06/19 09:00 104/48 03/06/19 09:00 73 17 104/48 (66) 100 03/06/19 08:30 76 18 99/52 (68) 100 03/06/19 08:00 Mechanical Ventilator 03/06/19 08:00 82/45 03/06/19 08:00 95/52 03/06/19 08:00 40 03/06/19 08:00 80 03/06/19 08:00 98.6 76 14 82/45 (57) 100 03/06/19 07:30 68 14 95/48 (64) 100 03/06/19 07:15 72 14 100 Mechanical Ventilator 40 03/06/19 07:10 72 18 40 03/06/19 07:00 71 20 105/47 (66) 100 03/06/19 07:00 90/59 03/06/19 07:00 68 14 100 Mechanical Ventilator 40 03/06/19 06:30 98.2 73 21 89/48 (62) 100 03/06/19 06:00 102/48 03/06/19 06:00 74 20 102/48 (66) 100 03/06/19 05:30 75 21 110/48 (68) 100 03/06/19 05:08 72 16 40 03/06/19 05:00 107/50 03/06/19 05:00 74 22 107/50 (69) 100 Intake and Output 03/06/19 03/07/19 18:59 06:59 Intake Total 1864.583 ml 978.333 ml Output Total 420 ml 300 ml Balance 1444.583 ml 678.333 ml Intake IV Total 1864.583 ml 978.333 ml Output Urine Total 420 ml 300 ml # Bowel Movements 1 1 Laboratory Tests Test 03/06/19 06:30 03/06/19 07:51 White Blood Count 8.5 K/UL (4.8-10.8) Red Blood Count 3.65 M/UL (4.20-5.40) L Hemoglobin 10.7 G/DL (12.0-16.0) #L Hematocrit 32.0 % (37.0-47.0) #L Mean Corpuscular Volume 88 FL (80-99) Mean Corpuscular Hemoglobin 29.2 PG (27.0-31.0) Mean Corpuscular Hemoglobin Concent 33.3 G/DL (32.0-36.0) Red Cell Distribution Width 14.2 % (11.6-14.8) Platelet Count 171 K/UL (150-450) Mean Platelet Volume 7.6 FL (6.5-10.1) Neutrophils (%) (Auto) 72.8 % (45.0-75.0) Lymphocytes (%) (Auto) 16.2 % (20.0-45.0) L Monocytes (%) (Auto) 9.3 % (1.0-10.0) Eosinophils (%) (Auto) 1.1 % (0.0-3.0) Basophils (%) (Auto) 0.5 % (0.0-2.0) Sodium Level 138 MMOL/L (136-145) Potassium Level 3.4 MMOL/L (3.5-5.1) L Chloride Level 107 MMOL/L (98-107) Carbon Dioxide Level 23 MMOL/L (21-32) Anion Gap 8 mmol/L (5-15) Blood Urea Nitrogen 11 mg/dL (7-18) Creatinine 0.6 MG/DL (0.55-1.30) Estimat Glomerular Filtration Rate mL/min (>60) Glucose Level 155 MG/DL (74-106) H Hemoglobin A1c 5.8 % (4.3-6.0) Lactic Acid Level 1.30 mmol/L (0.4-2.0) Calcium Level 7.8 MG/DL (8.5-10.1) L Triglycerides Level 61 MG/DL (30-150) Cholesterol Level 72 MG/DL (< 200) LDL Cholesterol 35 mg/dL (<100) HDL Cholesterol 30 MG/DL (40-60) L Cholesterol/HDL Ratio 2.4 (3.3-4.4) L Thyroid Stimulating Hormone (TSH) 0.669 uiU/mL (0.358-3.740) Arterial Blood pH 7.405 (7.350-7.450) Arterial Blood Partial Pressure CO2 33.7 mmHg (35.0-45.0) L Arterial Blood Partial Pressure O2 125.4 mmHg (75.0-100.0) H Arterial Blood HCO3 20.6 mmol/L (22.0-26.0) L Arterial Blood Oxygen Saturation 98.0 % (95-100) Arterial Blood Base Excess -3.4 (-2-2) L Garry Test Positive Microbiology Date/Time Source Procedure Growth Status 03/05/19 07:00 Blood Blood Culture - Preliminary Resulted 03/05/19 07:00 Blood Blood Culture - Preliminary Resulted 03/05/19 07:28 Urine,Clean Catch Urine Culture - Preliminary Gram Negative Bacillus 1 Resulted Objective HEAD AND NECK: No JVD. She is orally intubated. LUNGS: Coarse rhonchi. CARDIOVASCULAR: Shows regular S1 and S2 with no murmur or gallop. ABDOMEN: Soft with PEG in place. EXTREMITIES: 1+ pitting edema. Rusty Garsia MD Mar 07, 2019 04:35
[2019-03-07 05:32] LABS: BASOPHILS % (AUTO) 0.8 % (0.0-2.0); EOSINOPHILS % (AUTO) 1.2 % (0.0-3.0); HEMATOCRIT 29.2 % (37.0-47.0); HEMOGLOBIN 9.8 G/DL (12.0-16.0); LYMPHOCYTES % (AUTO) 24.6 % (20.0-45.0); MEAN CORPUSCULAR VOLUME 88 FL (80-99); MONOCYTES % (AUTO) 10.3 % (1.0-10.0); NEUTROPHILS % (AUTO) 63.1 % (45.0-75.0); PLATELET COUNT 152 K/UL (150-450); RED BLOOD COUNT 3.33 M/UL (4.20-5.40); WHITE BLOOD COUNT 5.2 K/UL (4.8-10.8)
[2019-03-07 05:48] LABS: ANION GAP 8 mmol/L (5-15); BLOOD UREA NITROGEN 5 mg/dL (7-18); CALCIUM 8.1 MG/DL (8.5-10.1); CARBON DIOXIDE 22 MMOL/L (21-32); CHLORIDE 109 MMOL/L (98-107); CREATININE 0.6 MG/DL (0.55-1.30); POTASSIUM 3.5 MMOL/L (3.5-5.1); SODIUM 139 MMOL/L (136-145)
[2019-03-07] MEDS: Vancomycin 750mg/NS 275ml IVPB SCH ×2 (06:00)
[2019-03-07] MEDS: NovoLOG Insulin Flexpen SUBQ SCH ×4 (06:30→21:00)
[2019-03-07] MEDS: Albuterol/Ipratropium 3ml neb HHN SCH ×4 (08:03→19:21)
[2019-03-07] MEDS: Heparin 5000 units/ml inj SUBQ SCH ×2 (08:12→21:09)
[2019-03-07] MEDS: D5 1/2NS w/KCl 20mEq 1,000 ML IV SCH ×2 (08:16→17:50)
--- NOTE | 2019-03-07 10:33 | Pulmonolgy Critical Care Note ---
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 (6) Alzheimer's dementia (7) Diabetes mellitus (8) Feeding by G-tube Respiratory: monitor respiratory rate, adjust FIO2, CXR Cardiac: continue to monitor HR/BP Renal: F/U I&O, keep IV fluid, check electrolytes Infectious Disease: check cultures Gastrointestinal: continue feedings/current rate Endocrine: monitor blood sugar, check TSH Hematologic: transfuse if hgb<8.5 Neurologic: PRN Ativan, keep patient comfortable Prophylaxis: Protonix Notes Reviewed: cardio Discussed with: nurses, consultants, 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 - Objective Last 24 Hour Vital Signs Date Time Temp Pulse Resp B/P (MAP) Pulse Ox O2 Delivery O2 Flow Rate FiO2 03/07/19 09:28 75 21 40 03/07/19 09:00 74 19 100/55 (70) 100 03/07/19 08:30 74 17 96/49 (65) 100 03/07/19 08:00 40 03/07/19 08:00 98.1 74 14 98/49 (65) 100 03/07/19 08:00 Mechanical Ventilator 03/07/19 08:00 78 03/07/19 07:59 89 25 40 03/07/19 07:59 76 20 100 Mechanical Ventilator 40 03/07/19 07:55 79 18 100 Mechanical Ventilator 40 03/07/19 07:15 70 15 98/53 (68) 100 03/07/19 07:00 73 17 98/64 (75) 99 03/07/19 06:45 67 14 98/48 (65) 100 03/07/19 06:30 76 19 98/51 (67) 100 03/07/19 06:00 78 19 100/54 (69) 100 03/07/19 05:30 83 24 108/58 (75) 100 03/07/19 05:25 82 25 40 03/07/19 05:00 82 17 104/52 (69) 99 03/07/19 04:00 Mechanical Ventilator 03/07/19 04:00 70 03/07/19 04:00 40 03/07/19 04:00 81 21 90/46 (61) 99 03/07/19 03:18 83 24 40 6/17/19 03:00 78 17 87/47 (60) 99 03/07/19 02:00 81 18 96/67 (77) 100 03/07/19 01:35 89 25 40 03/07/19 01:30 81 18 96/67 (77) 100 03/07/19 01:00 81 15 97/51 (66) 99 03/07/19 00:30 81 21 93/46 (62) 100 03/07/19 00:00 84 03/07/19 00:00 Mechanical Ventilator 03/07/19 00:00 99/51 03/07/19 00:00 83 14 100/51 (67) 99 03/07/19 00:00 40 03/06/19 23:45 84 18 100/52 (68) 99 03/06/19 23:30 86 18 105/57 (73) 99 03/06/19 23:24 78 16 40 03/06/19 23:15 78 20 95/47 (63) 99 03/06/19 23:00 77 18 93/47 (62) 99 03/06/19 23:00 95/47 03/06/19 22:45 76 20 99/47 (64) 99 03/06/19 22:30 78 19 102/50 (67) 100 03/06/19 22:15 98.8 75 17 106/55 (72) 100 03/06/19 22:00 106/55 03/06/19 21:20 74 15 40 03/06/19 21:00 103/55 03/06/19 20:00 Mechanical Ventilator 03/06/19 20:00 115/56 03/06/19 20:00 80 03/06/19 19:37 70 14 100 Mechanical Ventilator 40 03/06/19 19:32 78 16 100 Mechanical Ventilator 40 03/06/19 19:31 72 16 40 03/06/19 19:00 125/59 03/06/19 19:00 75 22 125/59 (81) 100 03/06/19 18:30 78 21 124/63 (83) 100 03/06/19 18:00 82 21 114/40 (64) 100 03/06/19 18:00 114/40 03/06/19 17:30 80 20 122/62 (82) 100 03/06/19 17:10 82 17 40 03/06/19 17:01 119/66 03/06/19 17:00 82 21 119/66 (83) 100 03/06/19 16:30 82 20 118/64 (82) 100 03/06/19 16:00 98.8 80 21 124/62 (82) 100 03/06/19 16:00 79 03/06/19 16:00 Mechanical Ventilator 03/06/19 16:00 124/62 03/06/19 16:00 100/60 03/06/19 16:00 40 03/06/19 15:07 77 18 100 Mechanical Ventilator 40 03/06/19 15:00 112/62 03/06/19 15:00 81 20 124/67 (86) 100 03/06/19 14:59 77 19 100 Mechanical Ventilator 40 03/06/19 14:57 78 18 40 03/06/19 14:00 104/53 03/06/19 14:00 82 20 112/62 (79) 100 03/06/19 13:00 80 21 113/55 (74) 100 03/06/19 13:00 113/55 03/06/19 12:42 83 20 40 03/06/19 12:30 82 21 110/54 (72) 99 03/06/19 12:03 75 19 100 Mechanical Ventilator 40 03/06/19 12:00 Mechanical Ventilator 03/06/19 12:00 98.0 82 20 104/52 (69) 99 03/06/19 12:00 40 03/06/19 12:00 104/52 03/06/19 12:00 80 03/06/19 11:54 81 21 99 Mechanical Ventilator 40 03/06/19 11:00 99/51 03/06/19 11:00 76 21 99/51 (67) 99 03/06/19 10:38 72 15 40 03/06/19 10:30 80 20 104/50 (68) 99 Status: awake Condition: critical, improving Neck: full ROM Lungs: clear Heart: HR/BP stable, HR/BP unstable, regular Abdomen: active bowel sounds, feeding tube Extremities: edema Decubiti: location Micro: Microbiology Date/Time Source Procedure Growth Status 03/05/19 07:00 Blood Blood Culture - Preliminary Gram Positive Cocci Resulted 03/05/19 07:00 Blood Blood Culture - Preliminary Staphylococcus Sp Coag Neg Resulted 03/05/19 08:00 Nasal Nares MRSA Culture - Final NO METHICILLIN RESISTANT STAPH AUREUS... Complete 03/05/19 07:28 Urine,Clean Catch Urine Culture - Preliminary Proteus Mirabilis Resulted 03/05/19 08:00 Rectum VRE Culture - Final Enterococcus Faecium - Vre Complete Accucheck: 110 Critical Care - Subjective ROS Limited/Unobtainable: Yes Condition: critical FI02: 40 Vent Support Breath Rate: 14 Vent Support Mode: AC Vent Tidal Volume: 450 Sputum Amount: Small PEEP: 5.0 PIP: 23 I&O: Intake and Output 03/06/19 03/07/19 19:00 07:00 Intake Total 2075.416 ml 1347.50 ml Output Total 380 ml 370 ml Balance 1695.416 ml 977.50 ml Intake IV Total 2075.416 ml 1347.50 ml Output Urine Total 380 ml 370 ml # Bowel Movements 2 ET-Tube: 7.5 ET Position: 23 Labs: Laboratory Tests Test 03/07/19 04:55 03/07/19 08:54 White Blood Count 5.2 K/UL (4.8-10.8) Red Blood Count 3.33 M/UL (4.20-5.40) L Hemoglobin 9.8 G/DL (12.0-16.0) L Hematocrit 29.2 % (37.0-47.0) L Mean Corpuscular Volume 88 FL (80-99) Mean Corpuscular Hemoglobin 29.3 PG (27.0-31.0) Mean Corpuscular Hemoglobin Concent 33.4 G/DL (32.0-36.0) Red Cell Distribution Width 14.0 % (11.6-14.8) Platelet Count 152 K/UL (150-450) Mean Platelet Volume 7.7 FL (6.5-10.1) Neutrophils (%) (Auto) 63.1 % (45.0-75.0) Lymphocytes (%) (Auto) 24.6 % (20.0-45.0) Monocytes (%) (Auto) 10.3 % (1.0-10.0) H Eosinophils (%) (Auto) 1.2 % (0.0-3.0) Basophils (%) (Auto) 0.8 % (0.0-2.0) Sodium Level 139 MMOL/L (136-145) Potassium Level 3.5 MMOL/L (3.5-5.1) Chloride Level 109 MMOL/L (98-107) H Carbon Dioxide Level 22 MMOL/L (21-32) Anion Gap 8 mmol/L (5-15) Blood Urea Nitrogen 5 mg/dL (7-18) L Creatinine 0.6 MG/DL (0.55-1.30) Estimat Glomerular Filtration Rate mL/min (>60) Glucose Level 123 MG/DL (74-106) H Calcium Level 8.1 MG/DL (8.5-10.1) L Vancomycin Level Trough 11.7 ug/mL (5.0-12.0) Arterial Blood pH 7.448 (7.350-7.450) Arterial Blood Partial Pressure CO2 32.9 mmHg (35.0-45.0) L Arterial Blood Partial Pressure O2 146.1 mmHg (75.0-100.0) H Arterial Blood HCO3 22.3 mmol/L (22.0-26.0) Arterial Blood Oxygen Saturation 98.3 % (95-100) Arterial Blood Base Excess -1.2 (-2-2) Garry Test Positive Jenifer Patel MD Mar 07, 2019 10:33
[2019-03-07] MEDS: Vancomycin 1.5 GM in NS 275 ML IVPB SCH (13:59)
--- NOTE | 2019-03-07 14:19 | Consultation ---
History of Present Illness General Date patient seen: Mar 07, 2019 Chief Complaint: Dyspnea/Respdistress Referring physician: Dr Honeycutt Reason for Consultation: resp failure, intubated Present Illness HPI Ms. Pittman is a 88 yo female who is a resident of [facility] was sent to the ED on 03/05/19 for SOB. She was seen it he ED and started on CPAP then intuabted. He CT scan shows pneumonitis. She has been afebrile and has no leukocytosis. She is currently intubated on 40% O2. History obtained form [facility] Chart. 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 Urine growing proteus. ID was consulted for PNA PMHx/PSHx HTN DM Renal disease Bipolar depression. Sacral decubitus ulcer, stage IV. Alzheimer dementia. S/P PEG SocHx Unable to obtain as patient intubated FamHx Unable to obtain as patient intubated Allergies: Coded Allergies: No Known Allergies (Unverified , 03/05/19) Medication History Scheduled Ascorbic Acid* (Ascorbic Acid*), 500 MG ORAL DAILY, (Reported) Donepezil Hcl* (Donepezil Hcl*), 5 MG ORAL DAILY, (Reported) Lorazepam* (Ativan*), 1 MG ORAL EVERY 12 HOURS, (Reported) Metoprolol Tartrate* (Metoprolol Tartrate*), 25 MG ORAL EVERY 8 HOURS, (Reported ) Omeprazole (Omeprazole), 20 MG ORAL DAILY, (Reported) Risperidone* (Risperdal*), 1 MG PO BEDTIME, (Reported) Scheduled PRN Hydralazine Hcl* (Hydralazine Hcl*), 10 MG ORAL EVERY 6 HOURS PRN for For High Blood Pressure, (Reported) Patient History Healthcare decision maker Resuscitation status Full Code Advanced Directive on File Review of Systems ROS Narrative Unable to obtain as patient intubated Physical Exam Last 24 Hour Vital Signs Date Time Temp Pulse Resp B/P (MAP) Pulse Ox O2 Delivery O2 Flow Rate FiO2 03/07/19 13:11 74 16 40 03/07/19 13:00 70 17 105/54 (71) 100 03/07/19 12:00 40 03/07/19 12:00 62 03/07/19 12:00 99.0 69 16 108/52 (70) 100 03/07/19 12:00 Mechanical Ventilator 03/07/19 11:25 81 22 100 Mechanical Ventilator 40 03/07/19 11:24 64 14 40 03/07/19 11:10 80 20 100 Mechanical Ventilator 40 03/07/19 11:00 74 20 101/52 (68) 100 03/07/19 10:00 73 17 102/54 (70) 99 03/07/19 09:28 75 21 40 03/07/19 09:00 74 19 100/55 (70) 100 03/07/19 08:30 74 17 96/49 (65) 100 03/07/19 08:00 40 03/07/19 08:00 98.1 74 14 98/49 (65) 100 03/07/19 08:00 Mechanical Ventilator 03/07/19 08:00 78 03/07/19 07:59 89 25 40 03/07/19 07:59 76 20 100 Mechanical Ventilator 40 03/07/19 07:55 79 18 100 Mechanical Ventilator 40 03/07/19 07:15 70 15 98/53 (68) 100 03/07/19 07:00 73 17 98/64 (75) 99 03/07/19 06:45 67 14 98/48 (65) 100 03/07/19 06:30 76 19 98/51 (67) 100 03/07/19 06:00 78 19 100/54 (69) 100 03/07/19 05:30 83 24 108/58 (75) 100 03/07/19 05:25 82 25 40 03/07/19 05:00 82 17 104/52 (69) 99 03/07/19 04:00 Mechanical Ventilator 03/07/19 04:00 70 03/07/19 04:00 40 03/07/19 04:00 81 21 90/46 (61) 99 03/07/19 03:18 83 24 40 03/07/19 03:00 78 17 87/47 (60) 99 03/07/19 02:00 81 18 96/67 (77) 100 03/07/19 01:35 89 25 40 03/07/19 01:30 81 18 96/67 (77) 100 03/07/19 01:00 81 15 97/51 (66) 99 03/07/19 00:30 81 21 93/46 (62) 100 03/07/19 00:00 84 6/17/19 00:00 Mechanical Ventilator 03/07/19 00:00 99/51 03/07/19 00:00 83 14 100/51 (67) 99 03/07/19 00:00 40 03/06/19 23:45 84 18 100/52 (68) 99 03/06/19 23:30 86 18 105/57 (73) 99 03/06/19 23:24 78 16 40 03/06/19 23:15 78 20 95/47 (63) 99 03/06/19 23:00 77 18 93/47 (62) 99 03/06/19 23:00 95/47 03/06/19 22:45 76 20 99/47 (64) 99 03/06/19 22:30 78 19 102/50 (67) 100 03/06/19 22:15 98.8 75 17 106/55 (72) 100 03/06/19 22:00 106/55 03/06/19 21:20 74 15 40 03/06/19 21:00 103/55 03/06/19 20:00 Mechanical Ventilator 03/06/19 20:00 115/56 03/06/19 20:00 80 03/06/19 19:37 70 14 100 Mechanical Ventilator 40 03/06/19 19:32 78 16 100 Mechanical Ventilator 40 03/06/19 19:31 72 16 40 03/06/19 19:00 125/59 03/06/19 19:00 75 22 125/59 (81) 100 03/06/19 18:30 78 21 124/63 (83) 100 03/06/19 18:00 82 21 114/40 (64) 100 03/06/19 18:00 114/40 03/06/19 17:30 80 20 122/62 (82) 100 03/06/19 17:10 82 17 40 03/06/19 17:01 119/66 03/06/19 17:00 82 21 119/66 (83) 100 03/06/19 16:30 82 20 118/64 (82) 100 03/06/19 16:00 98.8 80 21 124/62 (82) 100 03/06/19 16:00 79 03/06/19 16:00 Mechanical Ventilator 03/06/19 16:00 124/62 03/06/19 16:00 100/60 6/16/19 16:00 40 03/06/19 15:07 77 18 100 Mechanical Ventilator 40 03/06/19 15:00 112/62 03/06/19 15:00 81 20 124/67 (86) 100 03/06/19 14:59 77 19 100 Mechanical Ventilator 40 03/06/19 14:57 78 18 40 Intake and Output 03/06/19 03/07/19 19:00 07:00 Intake Total 2075.416 ml 1347.50 ml Output Total 380 ml 370 ml Balance 1695.416 ml 977.50 ml Intake IV Total 2075.416 ml 1347.50 ml Output Urine Total 380 ml 370 ml # Bowel Movements 2 Laboratory Tests Test 03/07/19 04:55 03/07/19 08:54 White Blood Count 5.2 K/UL (4.8-10.8) Red Blood Count 3.33 M/UL (4.20-5.40) L Hemoglobin 9.8 G/DL (12.0-16.0) L Hematocrit 29.2 % (37.0-47.0) L Mean Corpuscular Volume 88 FL (80-99) Mean Corpuscular Hemoglobin 29.3 PG (27.0-31.0) Mean Corpuscular Hemoglobin Concent 33.4 G/DL (32.0-36.0) Red Cell Distribution Width 14.0 % (11.6-14.8) Platelet Count 152 K/UL (150-450) Mean Platelet Volume 7.7 FL (6.5-10.1) Neutrophils (%) (Auto) 63.1 % (45.0-75.0) Lymphocytes (%) (Auto) 24.6 % (20.0-45.0) Monocytes (%) (Auto) 10.3 % (1.0-10.0) H Eosinophils (%) (Auto) 1.2 % (0.0-3.0) Basophils (%) (Auto) 0.8 % (0.0-2.0) Sodium Level 139 MMOL/L (136-145) Potassium Level 3.5 MMOL/L (3.5-5.1) Chloride Level 109 MMOL/L (98-107) H Carbon Dioxide Level 22 MMOL/L (21-32) Anion Gap 8 mmol/L (5-15) Blood Urea Nitrogen 5 mg/dL (7-18) L Creatinine 0.6 MG/DL (0.55-1.30) Estimat Glomerular Filtration Rate mL/min (>60) Glucose Level 123 MG/DL (74-106) H Calcium Level 8.1 MG/DL (8.5-10.1) L Vancomycin Level Trough 11.7 ug/mL (5.0-12.0) Arterial Blood pH 7.448 (7.350-7.450) Arterial Blood Partial Pressure CO2 32.9 mmHg (35.0-45.0) L Arterial Blood Partial Pressure O2 146.1 mmHg (75.0-100.0) H Arterial Blood HCO3 22.3 mmol/L (22.0-26.0) Arterial Blood Oxygen Saturation 98.3 % (95-100) Arterial Blood Base Excess -1.2 (-2-2) Garry Test Positive Height (Feet): 5 Height (Inches): 6.00 Weight (Pounds): 164 Medications Current Medications Medications (Trade) Dose Ordered Sig/Judy Route PRN Reason Start Time Stop Time Status Last Admin Dose Admin Acetaminophen (Tylenol) 650 mg Q4H PRN ORAL FEVER (temp>100.5F) 03/05/19 16:00 04/04/19 15:59 Acetaminophen (Tylenol) 650 mg Q4H PRN ORAL Mild Pain (Pain Scale 1-3) 03/05/19 16:00 04/04/19 15:59 Albuterol/ Ipratropium (Albuterol/ Ipratropium) 3 ml Q4H PRN HHN Shortness of Breath 03/05/19 16:00 03/10/19 15:59 Albuterol/ Ipratropium (Albuterol/ Ipratropium) 3 ml QIDRT HHN 03/05/19 19:00 03/10/19 18:59 03/07/19 11:00 Dextrose (Dextrose 50%) 25 ml Q30M PRN IV Hypoglycemia 03/05/19 16:00 04/04/19 15:59 Dextrose (Dextrose 50%) 50 ml Q30M PRN IV Hypoglycemia 03/05/19 16:00 04/04/19 15:59 Dextrose/ Electrolytes 1,000 ml @ 100 mls/hr Q10H IV 03/05/19 17:00 04/04/19 16:59 03/07/19 08:16 Famotidine (Pepcid I.v.) 20 mg Q12HR IVP 03/05/19 21:00 04/04/19 20:59 03/07/19 08:11 Heparin Sodium (Porcine) (Heparin 5000 units/ml) 5,000 units EVERY 12 HOURS SUBQ 03/05/19 21:00 04/04/19 20:59 03/07/19 08:12 Insulin Aspart (NovoLOG) BEFORE MEALS AND HS SUBQ 03/07/19 11:30 04/06/19 11:29 Lorazepam (Ativan) 1 mg Q4H PRN ORAL For Anxiety 03/05/19 16:00 03/12/19 15:59 Morphine Sulfate (Morphine Sulfate) 1 mg Q4H PRN IVP For Pain 4-10 03/05/19 16:00 03/12/19 15:59 Nitroglycerin (Ntg) 0.4 mg Q5M PRN SL Prn Chest Pain 03/05/19 16:00 04/04/19 15:59 Norepinephrine Bitartrate 4 mg/ Dextrose 250 ml @ 0 mls/hr Q24H IV 03/05/19 19:15 04/04/19 19:14 03/06/19 16:00 Ondansetron HCl (Zofran) 4 mg Q6H PRN IVP Nausea & Vomiting 03/05/19 16:00 04/04/19 15:59 Piperacillin Sod/ Tazobactam Sod 3.375 gm/Sodium Chloride 110 ml @ 27.5 mls/hr Q8H IVPB 03/05/19 18:00 03/12/19 17:59 03/07/19 10:09 Polyethylene Glycol (Miralax) 17 gm DAILYPRN PRN ORAL Constipation 03/05/19 16:00 04/04/19 15:59 Vancomycin HCl (Vanco rx to dose) 1 ea DAILY PRN MISC Per rx protocol 03/05/19 16:00 04/04/19 15:59 Vancomycin HCl 1.5 gm/Sodium Chloride 275 ml @ 137.5 mls/ hr Q24H IVPB 03/07/19 14:00 03/12/19 13:59 03/07/19 13:59 Objective Narrative Gen: Intubated, Not following HEENT: NCAT, MMM, PERRL, No Oral lesion, no scleral icterus NECK: supple, No LAD, No JVD LUNGS: CTAB, No W/C, CARDS: RRR, S1, S2, No M/R/G, ABD: Soft, ND, + BS, No HSM, PEG ( No E/P) : Deferred Ext: C/C/E, Pulses 2+ B/L (DP, Rad): NEURO: Intubated and sedated SKIN: Warm/dry, No rashes, sacral decub Assessment/Plan Assessment/Plan: 88 yo female who is a resident of [facility] was sent to the ED on 03/05/19 for SOB. Respiratory failure Proabable PNA Sp Cx pend Blood Cx growing CoNS Most likely contamient f/u Repeat Blood Cx HTN DM Renal disease Bipolar depression. Sacral decubitus ulcer, stage IV. Alzheimer dementia. S/P PEG PLAN - Continue Zosyn #3 and Vanco #3 - f/u Blood Cx - f/u Sputum Cx - Monitor CBC and Temps Thank you for this consult. We will continue to follow the patient during this hospitalization. Bandar Hwang MD Mar 07, 2019 14:19
[2019-03-07] MEDS ORDERED: Vancomycin 1gm/D5W 275ml IVPB SCH ×2 (15:00)
--- NOTE | 2019-03-07 16:18 | Diagnostic Imaging Report ---
Indication: Shortness of breath Technique: One view of the chest Comparison: 03/06/2019 Findings: Stable position of endotracheal tube, tip approximately 2 cm above the isr[place]. Interstitial and airspace opacities at the left perihilar region and left lung base persist, unchanged. Left hemidiaphragm is blunted, unchanged, likely small pleural effusion. The heart is borderline enlarged. Impression: Unchanged, over one day, findings as above.
--- NOTE | 2019-03-07 19:08 | Internal Med Progress Note ---
Subjective Date of Service: Mar 07, 2019 Physician Name Harsha Arora Attending Physician Solomon Sotomayor MD Current Medications Medications (Trade) Dose Ordered Sig/Judy Route PRN Reason Start Time Stop Time Status Last Admin Dose Admin Acetaminophen (Tylenol) 650 mg Q4H PRN ORAL FEVER (temp>100.5F) 03/05/19 16:00 04/04/19 15:59 Acetaminophen (Tylenol) 650 mg Q4H PRN ORAL Mild Pain (Pain Scale 1-3) 03/05/19 16:00 04/04/19 15:59 Albuterol/ Ipratropium (Albuterol/ Ipratropium) 3 ml Q4H PRN HHN Shortness of Breath 03/05/19 16:00 03/10/19 15:59 Albuterol/ Ipratropium (Albuterol/ Ipratropium) 3 ml QIDRT HHN 03/05/19 19:00 03/10/19 18:59 03/07/19 15:00 Dextrose (Dextrose 50%) 25 ml Q30M PRN IV Hypoglycemia 03/05/19 16:00 04/04/19 15:59 Dextrose (Dextrose 50%) 50 ml Q30M PRN IV Hypoglycemia 03/05/19 16:00 04/04/19 15:59 Dextrose/ Electrolytes 1,000 ml @ 100 mls/hr Q10H IV 03/05/19 17:00 04/04/19 16:59 03/07/19 17:50 Famotidine (Pepcid I.v.) 20 mg Q12HR IVP 03/05/19 21:00 04/04/19 20:59 03/07/19 08:11 Heparin Sodium (Porcine) (Heparin 5000 units/ml) 5,000 units EVERY 12 HOURS SUBQ 03/05/19 21:00 04/04/19 20:59 03/07/19 08:12 Insulin Aspart (NovoLOG) BEFORE MEALS AND HS SUBQ 03/07/19 11:30 04/06/19 11:29 03/07/19 16:30 Lorazepam (Ativan) 1 mg Q4H PRN ORAL For Anxiety 03/05/19 16:00 03/12/19 15:59 Morphine Sulfate (Morphine Sulfate) 1 mg Q4H PRN IVP For Pain 4-10 03/05/19 16:00 03/12/19 15:59 Nitroglycerin (Ntg) 0.4 mg Q5M PRN SL Prn Chest Pain 03/05/19 16:00 04/04/19 15:59 Norepinephrine Bitartrate 4 mg/ Dextrose 250 ml @ 0 mls/hr Q24H IV 03/05/19 19:15 04/04/19 19:14 03/06/19 16:00 Ondansetron HCl (Zofran) 4 mg Q6H PRN IVP Nausea & Vomiting 03/05/19 16:00 04/04/19 15:59 Piperacillin Sod/ Tazobactam Sod 3.375 gm/Sodium Chloride 110 ml @ 27.5 mls/hr Q8H IVPB 03/05/19 18:00 03/12/19 17:59 03/07/19 17:50 Polyethylene Glycol (Miralax) 17 gm DAILYPRN PRN ORAL Constipation 03/05/19 16:00 04/04/19 15:59 Vancomycin HCl (Vanco rx to dose) 1 ea DAILY PRN MISC Per rx protocol 03/05/19 16:00 04/04/19 15:59 Vancomycin HCl 1.5 gm/Sodium Chloride 275 ml @ 137.5 mls/ hr Q24H IVPB 03/07/19 14:00 03/12/19 13:59 03/07/19 13:59 Allergies: Coded Allergies: No Known Allergies (Unverified , 03/05/19) ROS Limited/Unobtainable: Yes Subjective 88 YO F admitted with respiratory failure. Now pneumonia. Intubated and sedated. Cover for Int marcie-Dr Sotomayor. ICU Objective Last Vital Signs Date Time Temp Pulse Resp B/P (MAP) Pulse Ox O2 Delivery O2 Flow Rate FiO2 03/07/19 18:00 69 21 105/53 (70) 100 03/07/19 16:44 40 03/07/19 16:00 Mechanical Ventilator 03/07/19 16:00 98.9 03/05/19 22:00 45.0 Laboratory Tests Test 03/07/19 04:55 03/07/19 08:54 03/07/19 17:20 White Blood Count 5.2 K/UL (4.8-10.8) Red Blood Count 3.33 M/UL (4.20-5.40) L Hemoglobin 9.8 G/DL (12.0-16.0) L Hematocrit 29.2 % (37.0-47.0) L Mean Corpuscular Volume 88 FL (80-99) Mean Corpuscular Hemoglobin 29.3 PG (27.0-31.0) Mean Corpuscular Hemoglobin Concent 33.4 G/DL (32.0-36.0) Red Cell Distribution Width 14.0 % (11.6-14.8) Platelet Count 152 K/UL (150-450) Mean Platelet Volume 7.7 FL (6.5-10.1) Neutrophils (%) (Auto) 63.1 % (45.0-75.0) Lymphocytes (%) (Auto) 24.6 % (20.0-45.0) Monocytes (%) (Auto) 10.3 % (1.0-10.0) H Eosinophils (%) (Auto) 1.2 % (0.0-3.0) Basophils (%) (Auto) 0.8 % (0.0-2.0) Sodium Level 139 MMOL/L (136-145) Potassium Level 3.5 MMOL/L (3.5-5.1) Chloride Level 109 MMOL/L (98-107) H Carbon Dioxide Level 22 MMOL/L (21-32) Anion Gap 8 mmol/L (5-15) Blood Urea Nitrogen 5 mg/dL (7-18) L Creatinine 0.6 MG/DL (0.55-1.30) Estimat Glomerular Filtration Rate mL/min (>60) Glucose Level 123 MG/DL (74-106) H Calcium Level 8.1 MG/DL (8.5-10.1) L Vancomycin Level Trough 11.7 ug/mL (5.0-12.0) Arterial Blood pH 7.448 (7.350-7.450) Arterial Blood Partial Pressure CO2 32.9 mmHg (35.0-45.0) L Arterial Blood Partial Pressure O2 146.1 mmHg (75.0-100.0) H Arterial Blood HCO3 22.3 mmol/L (22.0-26.0) Arterial Blood Oxygen Saturation 98.3 % (95-100) Arterial Blood Base Excess -1.2 (-2-2) Garry Test Positive Urine Legionella Antigen Pending Microbiology Date/Time Source Procedure Growth Status 03/05/19 07:00 Blood Blood Culture - Preliminary Gram Positive Cocci Resulted 03/05/19 07:00 Blood Blood Culture - Preliminary Staphylococcus Sp Coag Neg Resulted 03/05/19 08:00 Nasal Nares MRSA Culture - Final NO METHICILLIN RESISTANT STAPH AUREUS... Complete 03/05/19 07:28 Urine,Clean Catch Urine Culture - Preliminary Proteus Mirabilis Resulted 03/05/19 08:00 Rectum VRE Culture - Final Enterococcus Faecium - Vre Complete Intake and Output 03/06/19 03/07/19 19:00 07:00 Intake Total 2075.416 ml 1347.50 ml Output Total 380 ml 370 ml Balance 1695.416 ml 977.50 ml Intake IV Total 2075.416 ml 1347.50 ml Output Urine Total 380 ml 370 ml # Bowel Movements 2 Objective PHYSICAL EXAMINATION: VITAL SIGNS: Temperature 98.2, respirations 21, pulse 73, blood pressure 89/48. GENERAL: The patient is a well-developed and well-nourished female, who is intubated and sedated. HEENT: Eyes pupils equal and responsive to light and accommodation. Extraocular movements are intact. NECK: Supple without lymphadenopathy. CHEST: Mech Vent; Crackles in bilateral bases with expiratory wheezes. CARDIOVASCULAR: Regular rhythm and rate. S1 and S2 normal without murmurs, rubs, or gallops. ABDOMEN: Soft, nontender, nondistended. Positive bowel sounds. No evidence of hepatosplenomegaly. Currently, no rebound or guarding noted. EXTREMITIES: Negative for clubbing, cyanosis, or edema. RECTAL/GENITAL: Not performed. NEUROLOGIC: Unable to assess secondary to sedation. Assessment/Plan Assessment/Plan ASSESSMENT: This is an 88-year-old female. 1. Respiratory failure. 2. Left pneumonia. 3. Hypertension. 4. Diabetes type 2. 5. Renal insufficiency. 6. Alzheimer dementia. 7. Bipolar depression. 8. Sacral decubitus ulcer, stage IV. TREATMENT: 1. Respiratory failure/pneumonia. A Pulmonary consultation has been obtained with Dr. Jenifer Patel. The patient is currently intubated. The patient has been started empirically on Zosyn and vancomycin. We will follow recommendations of Pulmonary. 2. Hypertension. The patient is currently hypotensive on Levophed. 3. Diabetes type 2. The patient has been placed on NovoLog sliding scale. 4. Renal insufficiency. 5. Alzheimer dementia. Continue Aricept as above. 6. Bipolar depression. Continue Risperdal as above. 7. Sacral decubitus ulcer stage IV. 8. The patient is a Full Code according to the POLST in the chart. Harsha Arora MD Mar 07, 2019 19:08
[2019-03-08] VITALS (25 sets, daily range): BP systolic 84–150; BP diastolic 41–126
[2019-03-08] MEDS: Piperacillin/Tazobactam 3.375 GM in NS 110 ML IVPB SCH ×3 (01:49→18:01)
[2019-03-08] MEDS: D5 1/2NS w/KCl 20mEq 1,000 ML IV SCH ×2 (04:49→14:25)
[2019-03-08 06:08] LABS: BASOPHILS % (AUTO) 0.6 % (0.0-2.0); EOSINOPHILS % (AUTO) 1.4 % (0.0-3.0); HEMATOCRIT 31.1 % (37.0-47.0); HEMOGLOBIN 10.3 G/DL (12.0-16.0); LYMPHOCYTES % (AUTO) 24.4 % (20.0-45.0); MEAN CORPUSCULAR VOLUME 88 FL (80-99); MONOCYTES % (AUTO) 10.4 % (1.0-10.0); NEUTROPHILS % (AUTO) 63.3 % (45.0-75.0); PLATELET COUNT 172 K/UL (150-450); RED BLOOD COUNT 3.55 M/UL (4.20-5.40); RED CELL DISTRIBUTION WIDTH 13.7 % (11.6-14.8); WHITE BLOOD COUNT 4.3 K/UL (4.8-10.8)
[2019-03-08] MEDS: NovoLOG Insulin Flexpen SUBQ SCH ×3 (06:16→16:30)
[2019-03-08 06:33] LABS: ALANINE AMINOTRANSFERASE 20 U/L (12-78); ALBUMIN/GLOBULIN RATIO 0.6 (1.0-2.7); ALKALINE PHOSPHATASE 133 U/L (46-116); ANION GAP 9 mmol/L (5-15); ASPARTATE AMINO TRANSFERASE 18 U/L (15-37); BILIRUBIN,TOTAL 0.7 MG/DL (0.2-1.0); BLOOD UREA NITROGEN 4 mg/dL (7-18); CALCIUM 8.5 MG/DL (8.5-10.1); CARBON DIOXIDE 23 MMOL/L (21-32); CHLORIDE 110 MMOL/L (98-107); CREATININE 0.6 MG/DL (0.55-1.30); PHOSPHORUS 2.3 MG/DL (2.5-4.9); POTASSIUM 3.4 MMOL/L (3.5-5.1); SODIUM 142 MMOL/L (136-145)
[2019-03-08] MEDS: Albuterol/Ipratropium 3ml neb HHN SCH ×4 (07:07→20:10)
[2019-03-08] MEDS: Heparin 5000 units/ml inj SUBQ SCH ×2 (08:38→21:00)
--- NOTE | 2019-03-08 10:16 | Diagnostic Imaging Report ---
Indication: Dyspnea Technique: One view of the chest Comparison: 03/07/2019 Findings: Stable satisfactory position of endotracheal tube. Left basilar pleural fluid and likely underlying consolidation persists, unchanged. The heart remains enlarged Impression: Unchanged, over one day, findings as above.
--- NOTE | 2019-03-08 11:20 | Pulmonolgy Critical Care Note ---
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 (6) Alzheimer's dementia (7) Diabetes mellitus (8) Feeding by G-tube Respiratory: monitor respiratory rate, adjust FIO2, CXR, weaning trial Cardiac: continue to monitor HR/BP Renal: F/U I&O Infectious Disease: check cultures, continue antibiotics Gastrointestinal: continue feedings/current rate Endocrine: monitor blood sugar, check HgA1C Hematologic: monitor H/H Neurologic: PRN Ativan Affect: PRN ativan Prophylaxis: Protonix Disposition: keep in ICU Time Spent (Minutes): 40 Notes 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: 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, ID Discussed with: nurses, consultants, case management rnsales strategy manager - Objective Last 24 Hour Vital Signs Date Time Temp Pulse Resp B/P (MAP) Pulse Ox O2 Delivery O2 Flow Rate FiO2 03/08/19 11:15 67 24 100 Mechanical Ventilator 40 03/08/19 11:02 58 19 100 Mechanical Ventilator 40 03/08/19 11:02 57 19 40 03/08/19 10:00 63 19 115/55 (75) 100 03/08/19 09:00 60 21 111/52 (71) 100 03/08/19 08:53 61 20 40 03/08/19 08:08 100 03/08/19 08:06 63 21 40 03/08/19 08:00 64 17 107/89 (95) 100 03/08/19 08:00 40 03/08/19 08:00 64 03/08/19 08:00 Mechanical Ventilator 03/08/19 07:11 63 19 40 40 03/08/19 07:09 56 14 100 Mechanical Ventilator 40 03/08/19 07:06 66 17 100 Mechanical Ventilator 40 03/08/19 07:00 71 27 111/59 (76) 100 03/08/19 06:00 98.8 70 18 120/61 (80) 99 03/08/19 05:02 80 33 40 40 03/08/19 05:00 80 27 115/83 (94) 99 03/08/19 04:17 61 17 108/56 (73) 100 03/08/19 04:00 57 03/08/19 04:00 56 16 86/41 (56) 100 03/08/19 04:00 40 03/08/19 04:00 Mechanical Ventilator 03/08/19 03:24 54 14 40 40 03/08/19 03:00 56 14 109/62 (78) 100 03/08/19 02:00 75 21 122/104 (110) 100 03/08/19 01:00 98.8 72 21 107/83 (91) 100 03/08/19 00:51 59 15 40 40 03/08/19 00:00 60 03/08/19 00:00 62 16 94/52 (66) 100 03/08/19 00:00 Mechanical Ventilator 03/08/19 00:00 40 03/07/19 23:26 70 30 40 40 03/07/19 23:00 69 18 97/52 (67) 100 03/07/19 22:00 63 18 99/48 (65) 100 03/07/19 21:00 65 16 95/47 (63) 100 03/07/19 20:34 68 17 40 40 03/07/19 20:00 82 03/07/19 20:00 98.8 76 20 106/58 (74) 100 03/07/19 20:00 Mechanical Ventilator 03/07/19 20:00 40 03/07/19 19:35 75 26 100 Mechanical Ventilator 40 03/07/19 19:25 79 32 99 Mechanical Ventilator 40 03/07/19 19:22 79 32 40 40 03/07/19 19:00 72 22 129/63 (85) 100 03/07/19 18:00 69 21 105/53 (70) 100 03/07/19 17:00 70 23 99/57 (71) 100 03/07/19 16:44 72 18 40 03/07/19 16:00 66 03/07/19 16:00 40 03/07/19 16:00 Mechanical Ventilator 03/07/19 16:00 98.9 70 24 114/62 (79) 99 03/07/19 16:00 69 25 40 40 03/07/19 15:55 77 25 40 03/07/19 15:24 74 16 40 03/07/19 15:20 70 20 99 Mechanical Ventilator 40 03/07/19 15:11 77 18 100 Mechanical Ventilator 40 03/07/19 15:00 68 18 109/54 (72) 100 03/07/19 14:00 72 19 106/58 (74) 100 03/07/19 13:11 74 16 40 03/07/19 13:00 70 17 105/54 (71) 100 03/07/19 12:00 40 03/07/19 12:00 62 03/07/19 12:00 99.0 69 16 108/52 (70) 100 03/07/19 12:00 Mechanical Ventilator 03/07/19 11:25 81 22 100 Mechanical Ventilator 40 03/07/19 11:24 64 14 40 Status: awake Condition: critical HEENT: atraumatic, normocephalic Neck: full ROM Lungs: chest wall tender Heart: HR/BP stable Abdomen: soft, feeding tube Extremities: no C/C/E, edema Accucheck: 146 Critical Care - Subjective ROS Limited/Unobtainable: Yes Condition: critical EKG Rhythm: Sinus Rhythm FI02: 40 Vent Support Breath Rate: 14 Vent Support Mode: CPAP Vent Tidal Volume: 450 Sputum Amount: Scant PEEP: 5.0 PIP: 13 Tube Feeding Amount: 30 I&O: Intake and Output 03/07/19 03/08/19 18:59 06:59 Intake Total 1495.0 ml 1780.0 ml Output Total 370 ml 360 ml Balance 1125.0 ml 1420.0 ml Intake IV Total 1375.0 ml 1420.0 ml Tube Feeding 120 ml 360 ml Output Urine Total 370 ml 360 ml CXR: ET in good position, LLL atelectasis and infiltrate. ET-Tube: 7.5 ET Position: 23 Labs: Laboratory Tests Test 03/07/19 17:20 03/08/19 05:30 03/08/19 08:57 Urine Legionella Antigen Pending White Blood Count 4.3 K/UL (4.8-10.8) L Red Blood Count 3.55 M/UL (4.20-5.40) L Hemoglobin 10.3 G/DL (12.0-16.0) L Hematocrit 31.1 % (37.0-47.0) L Mean Corpuscular Volume 88 FL (80-99) Mean Corpuscular Hemoglobin 29.1 PG (27.0-31.0) Mean Corpuscular Hemoglobin Concent 33.2 G/DL (32.0-36.0) Red Cell Distribution Width 13.7 % (11.6-14.8) Platelet Count 172 K/UL (150-450) Mean Platelet Volume 6.8 FL (6.5-10.1) Neutrophils (%) (Auto) 63.3 % (45.0-75.0) Lymphocytes (%) (Auto) 24.4 % (20.0-45.0) Monocytes (%) (Auto) 10.4 % (1.0-10.0) H Eosinophils (%) (Auto) 1.4 % (0.0-3.0) Basophils (%) (Auto) 0.6 % (0.0-2.0) Sodium Level 142 MMOL/L (136-145) Potassium Level 3.4 MMOL/L (3.5-5.1) L Chloride Level 110 MMOL/L (98-107) H Carbon Dioxide Level 23 MMOL/L (21-32) Anion Gap 9 mmol/L (5-15) Blood Urea Nitrogen 4 mg/dL (7-18) L Creatinine 0.6 MG/DL (0.55-1.30) Estimat Glomerular Filtration Rate mL/min (>60) Glucose Level 123 MG/DL (74-106) H Calcium Level 8.5 MG/DL (8.5-10.1) Phosphorus Level 2.3 MG/DL (2.5-4.9) L Magnesium Level 1.6 MG/DL (1.8-2.4) L Total Bilirubin 0.7 MG/DL (0.2-1.0) Aspartate Amino Transf (AST/SGOT) 18 U/L (15-37) Alanine Aminotransferase (ALT/SGPT) 20 U/L (12-78) Alkaline Phosphatase 133 U/L (46-116) H Total Protein 5.4 G/DL (6.4-8.2) L Albumin 2.0 G/DL (3.4-5.0) L Globulin 3.4 g/dL Albumin/Globulin Ratio 0.6 (1.0-2.7) L Arterial Blood pH 7.442 (7.350-7.450) Arterial Blood Partial Pressure CO2 35.4 mmHg (35.0-45.0) Arterial Blood Partial Pressure O2 155.0 mmHg (75.0-100.0) H Arterial Blood HCO3 23.6 mmol/L (22.0-26.0) Arterial Blood Oxygen Saturation 98.3 % (95-100) Arterial Blood Base Excess -0.2 (-2-2) Garry Test Positive Jenifer Patel MD Mar 08, 2019 11:20
--- NOTE | 2019-03-08 11:29 | Infectious Diseases Prog Note ---
Assessment/Plan Assessment/Plan Respiratory failure Proabable PNA Sp Cx pend Blood Cx growing CoNS and Enterococcus Most likely contaminant f/u Repeat Blood Cx HTN DM Renal disease Bipolar depression. Sacral decubitus ulcer, stage IV. Alzheimer dementia. S/P PEG PLAN - Continue Zosyn #4 and Vanco #4 - f/u repeat Blood Cx - f/u Sputum Cx - Monitor CBC and Temps Thank you for this consult. We will continue to follow the patient during this hospitalization. Subjective Allergies: Coded Allergies: No Known Allergies (Unverified , 03/05/19) Subjective Afebrile No Leukocytosis Intubated on 40% O2 Objective Vital Signs Last 24 Hour Vital Signs Date Time Temp Pulse Resp B/P (MAP) Pulse Ox O2 Delivery O2 Flow Rate FiO2 03/08/19 11:15 67 24 100 Mechanical Ventilator 40 03/08/19 11:02 58 19 100 Mechanical Ventilator 40 03/08/19 11:02 57 19 40 03/08/19 11:00 56 20 105/55 (72) 100 03/08/19 10:00 63 19 115/55 (75) 100 03/08/19 09:00 60 21 111/52 (71) 100 03/08/19 08:53 61 20 40 03/08/19 08:08 100 03/08/19 08:06 63 21 40 03/08/19 08:00 64 17 107/89 (95) 100 03/08/19 08:00 40 03/08/19 08:00 64 03/08/19 08:00 Mechanical Ventilator 03/08/19 07:11 63 19 40 40 03/08/19 07:09 56 14 100 Mechanical Ventilator 40 03/08/19 07:06 66 17 100 Mechanical Ventilator 40 03/08/19 07:00 71 27 111/59 (76) 100 03/08/19 06:00 98.8 70 18 120/61 (80) 99 03/08/19 05:02 80 33 40 40 03/08/19 05:00 80 27 115/83 (94) 99 03/08/19 04:17 61 17 108/56 (73) 100 03/08/19 04:00 57 03/08/19 04:00 56 16 86/41 (56) 100 03/08/19 04:00 40 03/08/19 04:00 Mechanical Ventilator 03/08/19 03:24 54 14 40 40 03/08/19 03:00 56 14 109/62 (78) 100 03/08/19 02:00 75 21 122/104 (110) 100 03/08/19 01:00 98.8 72 21 107/83 (91) 100 03/08/19 00:51 59 15 40 40 03/08/19 00:00 60 03/08/19 00:00 62 16 94/52 (66) 100 03/08/19 00:00 Mechanical Ventilator 03/08/19 00:00 40 03/07/19 23:26 70 30 40 40 03/07/19 23:00 69 18 97/52 (67) 100 03/07/19 22:00 63 18 99/48 (65) 100 03/07/19 21:00 65 16 95/47 (63) 100 03/07/19 20:34 68 17 40 40 03/07/19 20:00 82 03/07/19 20:00 98.8 76 20 106/58 (74) 100 03/07/19 20:00 Mechanical Ventilator 03/07/19 20:00 40 03/07/19 19:35 75 26 100 Mechanical Ventilator 40 03/07/19 19:25 79 32 99 Mechanical Ventilator 40 03/07/19 19:22 79 32 40 40 03/07/19 19:00 72 22 129/63 (85) 100 03/07/19 18:00 69 21 105/53 (70) 100 03/07/19 17:00 70 23 99/57 (71) 100 03/07/19 16:44 72 18 40 03/07/19 16:00 66 03/07/19 16:00 40 03/07/19 16:00 Mechanical Ventilator 03/07/19 16:00 98.9 70 24 114/62 (79) 99 03/07/19 16:00 69 25 40 40 03/07/19 15:55 77 25 40 03/07/19 15:24 74 16 40 03/07/19 15:20 70 20 99 Mechanical Ventilator 40 03/07/19 15:11 77 18 100 Mechanical Ventilator 40 03/07/19 15:00 68 18 109/54 (72) 100 03/07/19 14:00 72 19 106/58 (74) 100 03/07/19 13:11 74 16 40 03/07/19 13:00 70 17 105/54 (71) 100 03/07/19 12:00 40 03/07/19 12:00 62 03/07/19 12:00 99.0 69 16 108/52 (70) 100 03/07/19 12:00 Mechanical Ventilator Height (Feet): 5 Height (Inches): 6.00 Weight (Pounds): 164 Objective Gen: Intubated, Not following HEENT: NCAT, MMM, LUNGS: CTAB, No W CARDS: RRR, S1, S2 ABD: Soft, ND, + BS, No HSM, PEG ( No E/P) NEURO: Intubated Laboratory Tests Test 03/07/19 17:20 03/08/19 05:30 03/08/19 08:57 Urine Legionella Antigen Pending White Blood Count 4.3 K/UL (4.8-10.8) L Red Blood Count 3.55 M/UL (4.20-5.40) L Hemoglobin 10.3 G/DL (12.0-16.0) L Hematocrit 31.1 % (37.0-47.0) L Mean Corpuscular Volume 88 FL (80-99) Mean Corpuscular Hemoglobin 29.1 PG (27.0-31.0) Mean Corpuscular Hemoglobin Concent 33.2 G/DL (32.0-36.0) Red Cell Distribution Width 13.7 % (11.6-14.8) Platelet Count 172 K/UL (150-450) Mean Platelet Volume 6.8 FL (6.5-10.1) Neutrophils (%) (Auto) 63.3 % (45.0-75.0) Lymphocytes (%) (Auto) 24.4 % (20.0-45.0) Monocytes (%) (Auto) 10.4 % (1.0-10.0) H Eosinophils (%) (Auto) 1.4 % (0.0-3.0) Basophils (%) (Auto) 0.6 % (0.0-2.0) Sodium Level 142 MMOL/L (136-145) Potassium Level 3.4 MMOL/L (3.5-5.1) L Chloride Level 110 MMOL/L (98-107) H Carbon Dioxide Level 23 MMOL/L (21-32) Anion Gap 9 mmol/L (5-15) Blood Urea Nitrogen 4 mg/dL (7-18) L Creatinine 0.6 MG/DL (0.55-1.30) Estimat Glomerular Filtration Rate mL/min (>60) Glucose Level 123 MG/DL (74-106) H Calcium Level 8.5 MG/DL (8.5-10.1) Phosphorus Level 2.3 MG/DL (2.5-4.9) L Magnesium Level 1.6 MG/DL (1.8-2.4) L Total Bilirubin 0.7 MG/DL (0.2-1.0) Aspartate Amino Transf (AST/SGOT) 18 U/L (15-37) Alanine Aminotransferase (ALT/SGPT) 20 U/L (12-78) Alkaline Phosphatase 133 U/L (46-116) H Total Protein 5.4 G/DL (6.4-8.2) L Albumin 2.0 G/DL (3.4-5.0) L Globulin 3.4 g/dL Albumin/Globulin Ratio 0.6 (1.0-2.7) L Arterial Blood pH 7.442 (7.350-7.450) Arterial Blood Partial Pressure CO2 35.4 mmHg (35.0-45.0) Arterial Blood Partial Pressure O2 155.0 mmHg (75.0-100.0) H Arterial Blood HCO3 23.6 mmol/L (22.0-26.0) Arterial Blood Oxygen Saturation 98.3 % (95-100) Arterial Blood Base Excess -0.2 (-2-2) Garry Test Positive Current Medications Medications (Trade) Dose Ordered Sig/Judy Route PRN Reason Start Time Stop Time Status Last Admin Dose Admin Acetaminophen (Tylenol) 650 mg Q4H PRN ORAL FEVER (temp>100.5F) 03/05/19 16:00 04/04/19 15:59 Acetaminophen (Tylenol) 650 mg Q4H PRN ORAL Mild Pain (Pain Scale 1-3) 03/05/19 16:00 04/04/19 15:59 Albuterol/ Ipratropium (Albuterol/ Ipratropium) 3 ml Q4H PRN HHN Shortness of Breath 03/05/19 16:00 03/10/19 15:59 Albuterol/ Ipratropium (Albuterol/ Ipratropium) 3 ml QIDRT HHN 03/05/19 19:00 03/10/19 18:59 03/08/19 11:02 Dextrose (Dextrose 50%) 25 ml Q30M PRN IV Hypoglycemia 03/05/19 16:00 04/04/19 15:59 Dextrose (Dextrose 50%) 50 ml Q30M PRN IV Hypoglycemia 03/05/19 16:00 04/04/19 15:59 Dextrose/ Electrolytes 1,000 ml @ 100 mls/hr Q10H IV 03/05/19 17:00 04/04/19 16:59 03/08/19 04:49 Famotidine (Pepcid I.v.) 20 mg Q12HR IVP 03/05/19 21:00 04/04/19 20:59 03/08/19 08:34 Heparin Sodium (Porcine) (Heparin 5000 units/ml) 5,000 units EVERY 12 HOURS SUBQ 03/05/19 21:00 04/04/19 20:59 03/08/19 08:38 Insulin Aspart (NovoLOG) BEFORE MEALS AND HS SUBQ 03/07/19 11:30 04/06/19 11:29 03/08/19 06:16 Lorazepam (Ativan) 1 mg Q4H PRN ORAL For Anxiety 03/05/19 16:00 03/12/19 15:59 Magnesium Sulfate 100 ml @ 100 mls/hr Q1H IV 03/08/19 12:45 03/08/19 14:44 UNV Morphine Sulfate (Morphine Sulfate) 1 mg Q4H PRN IVP For Pain 4-10 03/05/19 16:00 03/12/19 15:59 Nitroglycerin (Ntg) 0.4 mg Q5M PRN SL Prn Chest Pain 03/05/19 16:00 04/04/19 15:59 Norepinephrine Bitartrate 4 mg/ Dextrose 250 ml @ 0 mls/hr Q24H IV 03/05/19 19:15 04/04/19 19:14 03/06/19 16:00 Ondansetron HCl (Zofran) 4 mg Q6H PRN IVP Nausea & Vomiting 03/05/19 16:00 04/04/19 15:59 Piperacillin Sod/ Tazobactam Sod 3.375 gm/Sodium Chloride 110 ml @ 27.5 mls/hr Q8H IVPB 03/05/19 18:00 03/12/19 17:59 03/08/19 09:47 Polyethylene Glycol (Miralax) 17 gm DAILYPRN PRN ORAL Constipation 03/05/19 16:00 04/04/19 15:59 Potassium Chloride 100 ml @ 100 mls/hr Q1H IVPB 03/08/19 11:30 03/08/19 15:29 UNV Sodium Phosphate 30 mm/Sodium Chloride 285 ml @ 47.5 mls/hr ONCE ONCE IV 03/08/19 12:45 03/08/19 18:44 UNV Vancomycin HCl (Vanco rx to dose) 1 ea DAILY PRN MISC Per rx protocol 03/05/19 16:00 04/04/19 15:59 Vancomycin HCl 1.5 gm/Sodium Chloride 275 ml @ 137.5 mls/ hr Q24H IVPB 03/07/19 14:00 03/12/19 13:59 03/07/19 13:59 Bandar Hwang MD Mar 08, 2019 11:29
[2019-03-08] MEDS: Vancomycin 1.5 GM in NS 275 ML IVPB SCH (14:14)
[2019-03-08] MEDS ORDERED: Racemic EPINEPHrine 2.25% 0.5ml HHN SCH (14:45)
[2019-03-08] MEDS ORDERED: Sodium Phosphate 30 MM in NS 275 ML IV ONE (16:30)
--- NOTE | 2019-03-08 17:07 | Cardiac Electrophysiology PN ---
Assessment/Plan Assessment/Plan 1. S/P Septic shock. Lactic acid is 3.3. EF 50%. The patient is already on Zosyn and vancomycin Off pressors 2. S/P Respiratory failure, extubated by Dr. Patel. 3. UTI. 4. Dysphagia, status post PEG placement. 5. History of encephalopathy. 6. Diabetes. 7. Multinodular toxic goiter. DW RN Subjective Subjective Extubated at noon in ICU off Levophed . Remained in SR Objective Last 24 Hour Vital Signs Date Time Temp Pulse Resp B/P (MAP) Pulse Ox O2 Delivery O2 Flow Rate FiO2 03/08/19 16:00 92 31 142/121 (128) 98 03/08/19 16:00 40 03/08/19 16:00 93 03/08/19 16:00 Venturi Mask 03/08/19 15:07 81 28 99 Cool Aerosol 8.0 30 03/08/19 15:00 76 13 109/54 (72) 100 03/08/19 14:59 79 29 98 Cool Aerosol 8.0 30 03/08/19 14:57 83 30 100 Cool Aerosol 12.0 40 03/08/19 14:35 84 22 97 Cool Aerosol 12.0 40 03/08/19 14:00 76 24 98/46 (63) 98 03/08/19 13:00 89 24 117/56 (76) 98 03/08/19 12:27 92 24 95 Cool Aerosol 8.0 30 03/08/19 12:24 97 Cool Aerosol 8.0 30 03/08/19 12:20 95 22 94 Cool Aerosol 8.0 30 03/08/19 12:00 Venturi Mask 03/08/19 12:00 78 03/08/19 12:00 98.8 101 27 150/126 (134) 97 03/08/19 12:00 40 03/08/19 11:15 67 24 100 Mechanical Ventilator 40 03/08/19 11:02 58 19 100 Mechanical Ventilator 40 03/08/19 11:02 57 19 40 03/08/19 11:00 56 20 105/55 (72) 100 03/08/19 10:00 63 19 115/55 (75) 100 03/08/19 09:00 60 21 111/52 (71) 100 03/08/19 08:53 61 20 40 03/08/19 08:08 100 03/08/19 08:06 63 21 40 03/08/19 08:00 64 17 107/89 (95) 100 03/08/19 08:00 40 03/08/19 08:00 64 03/08/19 08:00 Mechanical Ventilator 03/08/19 07:11 63 19 40 40 03/08/19 07:09 56 14 100 Mechanical Ventilator 40 03/08/19 07:06 66 17 100 Mechanical Ventilator 40 03/08/19 07:00 71 27 111/59 (76) 100 03/08/19 06:00 98.8 70 18 120/61 (80) 99 03/08/19 05:02 80 33 40 40 03/08/19 05:00 80 27 115/83 (94) 99 03/08/19 04:17 61 17 108/56 (73) 100 03/08/19 04:00 57 03/08/19 04:00 56 16 86/41 (56) 100 03/08/19 04:00 40 03/08/19 04:00 Mechanical Ventilator 03/08/19 03:24 54 14 40 40 03/08/19 03:00 56 14 109/62 (78) 100 03/08/19 02:00 75 21 122/104 (110) 100 03/08/19 01:00 98.8 72 21 107/83 (91) 100 03/08/19 00:51 59 15 40 40 03/08/19 00:00 60 03/08/19 00:00 62 16 94/52 (66) 100 03/08/19 00:00 Mechanical Ventilator 03/08/19 00:00 40 03/07/19 23:26 70 30 40 40 03/07/19 23:00 69 18 97/52 (67) 100 03/07/19 22:00 63 18 99/48 (65) 100 03/07/19 21:00 65 16 95/47 (63) 100 03/07/19 20:34 68 17 40 40 03/07/19 20:00 82 03/07/19 20:00 98.8 76 20 106/58 (74) 100 03/07/19 20:00 Mechanical Ventilator 03/07/19 20:00 40 03/07/19 19:35 75 26 100 Mechanical Ventilator 40 03/07/19 19:25 79 32 99 Mechanical Ventilator 40 03/07/19 19:22 79 32 40 40 03/07/19 19:00 72 22 129/63 (85) 100 03/07/19 18:00 69 21 105/53 (70) 100 Intake and Output 03/07/19 03/08/19 19:00 07:00 Intake Total 1625.0 ml 1780.0 ml Output Total 360 ml 360 ml Balance 1265.0 ml 1420.0 ml Intake IV Total 1475.0 ml 1420.0 ml Tube Feeding 150 ml 360 ml Output Urine Total 360 ml 360 ml Laboratory Tests Test 03/07/19 17:20 03/08/19 05:30 03/08/19 08:57 Urine Legionella Antigen Pending White Blood Count 4.3 K/UL (4.8-10.8) L Red Blood Count 3.55 M/UL (4.20-5.40) L Hemoglobin 10.3 G/DL (12.0-16.0) L Hematocrit 31.1 % (37.0-47.0) L Mean Corpuscular Volume 88 FL (80-99) Mean Corpuscular Hemoglobin 29.1 PG (27.0-31.0) Mean Corpuscular Hemoglobin Concent 33.2 G/DL (32.0-36.0) Red Cell Distribution Width 13.7 % (11.6-14.8) Platelet Count 172 K/UL (150-450) Mean Platelet Volume 6.8 FL (6.5-10.1) Neutrophils (%) (Auto) 63.3 % (45.0-75.0) Lymphocytes (%) (Auto) 24.4 % (20.0-45.0) Monocytes (%) (Auto) 10.4 % (1.0-10.0) H Eosinophils (%) (Auto) 1.4 % (0.0-3.0) Basophils (%) (Auto) 0.6 % (0.0-2.0) Sodium Level 142 MMOL/L (136-145) Potassium Level 3.4 MMOL/L (3.5-5.1) L Chloride Level 110 MMOL/L (98-107) H Carbon Dioxide Level 23 MMOL/L (21-32) Anion Gap 9 mmol/L (5-15) Blood Urea Nitrogen 4 mg/dL (7-18) L Creatinine 0.6 MG/DL (0.55-1.30) Estimat Glomerular Filtration Rate mL/min (>60) Glucose Level 123 MG/DL (74-106) H Calcium Level 8.5 MG/DL (8.5-10.1) Phosphorus Level 2.3 MG/DL (2.5-4.9) L Magnesium Level 1.6 MG/DL (1.8-2.4) L Total Bilirubin 0.7 MG/DL (0.2-1.0) Aspartate Amino Transf (AST/SGOT) 18 U/L (15-37) Alanine Aminotransferase (ALT/SGPT) 20 U/L (12-78) Alkaline Phosphatase 133 U/L (46-116) H Total Protein 5.4 G/DL (6.4-8.2) L Albumin 2.0 G/DL (3.4-5.0) L Globulin 3.4 g/dL Albumin/Globulin Ratio 0.6 (1.0-2.7) L Arterial Blood pH 7.442 (7.350-7.450) Arterial Blood Partial Pressure CO2 35.4 mmHg (35.0-45.0) Arterial Blood Partial Pressure O2 155.0 mmHg (75.0-100.0) H Arterial Blood HCO3 23.6 mmol/L (22.0-26.0) Arterial Blood Oxygen Saturation 98.3 % (95-100) Arterial Blood Base Excess -0.2 (-2-2) Garry Test Positive Objective HEAD AND NECK: No JVD. LUNGS: Coarse rhonchi. CARDIOVASCULAR: Shows regular S1 and S2 with no murmur or gallop. ABDOMEN: Soft with PEG in place. EXTREMITIES: 1+ pitting edema. Rusty Garsia MD Mar 08, 2019 17:07
--- NOTE | 2019-03-08 18:42 | Internal Med Progress Note ---
Subjective Date of Service: Mar 08, 2019 Physician Name Harsha Arora Attending Physician Solomon Sotomayor MD Current Medications Medications (Trade) Dose Ordered Sig/Judy Route PRN Reason Start Time Stop Time Status Last Admin Dose Admin Acetaminophen (Tylenol) 650 mg Q4H PRN ORAL Mild Pain (Pain Scale 1-3) 03/05/19 16:00 04/04/19 15:59 03/08/19 12:46 Acetaminophen (Tylenol) 650 mg Q4H PRN ORAL FEVER (temp>100.5F) 03/05/19 16:00 04/04/19 15:59 Albuterol/ Ipratropium (Albuterol/ Ipratropium) 3 ml Q4H PRN HHN Shortness of Breath 03/05/19 16:00 03/10/19 15:59 03/08/19 12:19 Albuterol/ Ipratropium (Albuterol/ Ipratropium) 3 ml QIDRT HHN 03/05/19 19:00 03/10/19 18:59 03/08/19 14:35 Dextrose (Dextrose 50%) 25 ml Q30M PRN IV Hypoglycemia 03/05/19 16:00 04/04/19 15:59 Dextrose (Dextrose 50%) 50 ml Q30M PRN IV Hypoglycemia 03/05/19 16:00 04/04/19 15:59 Dextrose/ Electrolytes 1,000 ml @ 100 mls/hr Q10H IV 03/05/19 17:00 04/04/19 16:59 03/08/19 14:25 Famotidine (Pepcid I.v.) 20 mg Q12HR IVP 03/05/19 21:00 04/04/19 20:59 03/08/19 08:34 Heparin Sodium (Porcine) (Heparin 5000 units/ml) 5,000 units EVERY 12 HOURS SUBQ 03/05/19 21:00 04/04/19 20:59 03/08/19 08:38 Insulin Aspart (NovoLOG) BEFORE MEALS AND HS SUBQ 03/07/19 11:30 04/06/19 11:29 03/08/19 06:16 Lorazepam (Ativan) 1 mg Q4H PRN ORAL For Anxiety 03/05/19 16:00 03/12/19 15:59 03/08/19 15:27 Morphine Sulfate (Morphine Sulfate) 1 mg Q4H PRN IVP For Pain 4-10 03/05/19 16:00 03/12/19 15:59 03/08/19 16:28 Nitroglycerin (Ntg) 0.4 mg Q5M PRN SL Prn Chest Pain 03/05/19 16:00 04/04/19 15:59 Norepinephrine Bitartrate 4 mg/ Dextrose 250 ml @ 0 mls/hr Q24H IV 03/05/19 19:15 04/04/19 19:14 03/06/19 16:00 Ondansetron HCl (Zofran) 4 mg Q6H PRN IVP Nausea & Vomiting 03/05/19 16:00 04/04/19 15:59 Piperacillin Sod/ Tazobactam Sod 3.375 gm/Sodium Chloride 110 ml @ 27.5 mls/hr Q8H IVPB 03/05/19 18:00 03/12/19 17:59 03/08/19 18:01 Polyethylene Glycol (Miralax) 17 gm DAILYPRN PRN ORAL Constipation 03/05/19 16:00 04/04/19 15:59 Sodium Phosphate 30 mm/Sodium Chloride 285 ml @ 47.5 mls/hr ONCE ONCE IV 03/08/19 16:30 03/08/19 22:29 03/08/19 16:53 Vancomycin HCl (Vanco rx to dose) 1 ea DAILY PRN MISC Per rx protocol 03/05/19 16:00 04/04/19 15:59 Vancomycin HCl 1.5 gm/Sodium Chloride 275 ml @ 137.5 mls/ hr Q24H IVPB 03/07/19 14:00 03/12/19 13:59 03/08/19 14:14 Allergies: Coded Allergies: No Known Allergies (Unverified , 03/05/19) ROS Limited/Unobtainable: Yes Subjective 88 YO F admitted with respiratory failure. Now pneumonia. Extubated 03/08/19; tolerating venturi mask. Cover for Int marcie-Dr Sotomayor. ICU Objective Last Vital Signs Date Time Temp Pulse Resp B/P (MAP) Pulse Ox O2 Delivery O2 Flow Rate FiO2 03/08/19 18:01 100/51 03/08/19 18:00 95 26 100 03/08/19 16:00 98.0 03/08/19 16:00 40 6/18/19 16:00 Venturi Mask 03/08/19 15:07 8.0 Laboratory Tests Test 03/08/19 05:30 03/08/19 08:57 White Blood Count 4.3 K/UL (4.8-10.8) L Red Blood Count 3.55 M/UL (4.20-5.40) L Hemoglobin 10.3 G/DL (12.0-16.0) L Hematocrit 31.1 % (37.0-47.0) L Mean Corpuscular Volume 88 FL (80-99) Mean Corpuscular Hemoglobin 29.1 PG (27.0-31.0) Mean Corpuscular Hemoglobin Concent 33.2 G/DL (32.0-36.0) Red Cell Distribution Width 13.7 % (11.6-14.8) Platelet Count 172 K/UL (150-450) Mean Platelet Volume 6.8 FL (6.5-10.1) Neutrophils (%) (Auto) 63.3 % (45.0-75.0) Lymphocytes (%) (Auto) 24.4 % (20.0-45.0) Monocytes (%) (Auto) 10.4 % (1.0-10.0) H Eosinophils (%) (Auto) 1.4 % (0.0-3.0) Basophils (%) (Auto) 0.6 % (0.0-2.0) Sodium Level 142 MMOL/L (136-145) Potassium Level 3.4 MMOL/L (3.5-5.1) L Chloride Level 110 MMOL/L (98-107) H Carbon Dioxide Level 23 MMOL/L (21-32) Anion Gap 9 mmol/L (5-15) Blood Urea Nitrogen 4 mg/dL (7-18) L Creatinine 0.6 MG/DL (0.55-1.30) Estimat Glomerular Filtration Rate mL/min (>60) Glucose Level 123 MG/DL (74-106) H Calcium Level 8.5 MG/DL (8.5-10.1) Phosphorus Level 2.3 MG/DL (2.5-4.9) L Magnesium Level 1.6 MG/DL (1.8-2.4) L Total Bilirubin 0.7 MG/DL (0.2-1.0) Aspartate Amino Transf (AST/SGOT) 18 U/L (15-37) Alanine Aminotransferase (ALT/SGPT) 20 U/L (12-78) Alkaline Phosphatase 133 U/L (46-116) H Total Protein 5.4 G/DL (6.4-8.2) L Albumin 2.0 G/DL (3.4-5.0) L Globulin 3.4 g/dL Albumin/Globulin Ratio 0.6 (1.0-2.7) L Arterial Blood pH 7.442 (7.350-7.450) Arterial Blood Partial Pressure CO2 35.4 mmHg (35.0-45.0) Arterial Blood Partial Pressure O2 155.0 mmHg (75.0-100.0) H Arterial Blood HCO3 23.6 mmol/L (22.0-26.0) Arterial Blood Oxygen Saturation 98.3 % (95-100) Arterial Blood Base Excess -0.2 (-2-2) Garry Test Positive Intake and Output 03/07/19 03/08/19 19:00 07:00 Intake Total 1625.0 ml 1780.0 ml Output Total 360 ml 360 ml Balance 1265.0 ml 1420.0 ml Intake IV Total 1475.0 ml 1420.0 ml Tube Feeding 150 ml 360 ml Output Urine Total 360 ml 360 ml Objective PHYSICAL EXAMINATION: VITAL SIGNS: Temperature 98.2, respirations 21, pulse 73, blood pressure 89/48. GENERAL: The patient is a well-developed and well-nourished female, who is intubated and sedated. HEENT: Eyes pupils equal and responsive to light and accommodation. Extraocular movements are intact. NECK: Supple without lymphadenopathy. CHEST: Venturi mask; Crackles in bilateral bases with expiratory wheezes. CARDIOVASCULAR: Regular rhythm and rate. S1 and S2 normal without murmurs, rubs, or gallops. ABDOMEN: Soft, nontender, nondistended. Positive bowel sounds. No evidence of hepatosplenomegaly. Currently, no rebound or guarding noted. EXTREMITIES: Negative for clubbing, cyanosis, or edema. RECTAL/GENITAL: Not performed. NEUROLOGIC: Unable to assess secondary to sedation. Assessment/Plan Assessment/Plan ASSESSMENT: This is an 88-year-old female. 1. Respiratory failure. 2. Left pneumonia. 3. Hypertension. 4. Diabetes type 2. 5. Renal insufficiency. 6. Alzheimer dementia. 7. Bipolar depression. 8. Sacral decubitus ulcer, stage IV. TREATMENT: 1. Respiratory failure/pneumonia. A Pulmonary consultation has been obtained with Dr. Jenifer Patel. The patient is currently extubated on venturi mask The patient has been started empirically on Zosyn and vancomycin. We will follow recommendations of Pulmonary. 2. Hypertension. The patient is currently hypotensive on Levophed. 3. Diabetes type 2. The patient has been placed on NovoLog sliding scale. 4. Renal insufficiency. 5. Alzheimer dementia. Continue Aricept as above. 6. Bipolar depression. Continue Risperdal as above. 7. Sacral decubitus ulcer stage IV. 8. The patient is a Full Code according to the POLST in the chart. Harsha Arora MD Mar 08, 2019 18:42
[2019-03-08] MEDS ORDERED: Dyna-Hex 2% Top Sol 2oz TOPIC SCH (20:00)
[2019-03-09] VITALS (19 sets, daily range): BP systolic 99–143; BP diastolic 47–108
[2019-03-09] MEDS: D5 1/2NS w/KCl 20mEq 1,000 ML IV SCH ×3 (01:08→18:28)
[2019-03-09] MEDS: Piperacillin/Tazobactam 3.375 GM in NS 110 ML IVPB SCH ×3 (02:22→17:50)
[2019-03-09 05:45] LABS: EOSINOPHILS % (AUTO) 1.5 % (0.0-3.0); HEMATOCRIT 30.2 % (37.0-47.0); LYMPHOCYTES % (AUTO) 32.1 % (20.0-45.0); MEAN CORPUSCULAR VOLUME 87 FL (80-99); MONOCYTES % (AUTO) 10.9 % (1.0-10.0); NEUTROPHILS % (AUTO) 54.6 % (45.0-75.0); PLATELET COUNT 192 K/UL (150-450); RED BLOOD COUNT 3.46 M/UL (4.20-5.40); RED CELL DISTRIBUTION WIDTH 13.9 % (11.6-14.8); WHITE BLOOD COUNT 4.7 K/UL (4.8-10.8)
[2019-03-09] MEDS: NovoLOG Insulin Flexpen SUBQ SCH ×5 (05:59→23:52)
[2019-03-09 06:51] LABS: ALANINE AMINOTRANSFERASE 16 U/L (12-78); ALBUMIN/GLOBULIN RATIO 0.6 (1.0-2.7); ALKALINE PHOSPHATASE 119 U/L (46-116); ANION GAP 8 mmol/L (5-15); ASPARTATE AMINO TRANSFERASE 17 U/L (15-37); BILIRUBIN,TOTAL 0.5 MG/DL (0.2-1.0); BLOOD UREA NITROGEN 4 mg/dL (7-18); CALCIUM 8.5 MG/DL (8.5-10.1); CARBON DIOXIDE 24 MMOL/L (21-32); CHLORIDE 108 MMOL/L (98-107); CREATININE 0.5 MG/DL (0.55-1.30); PHOSPHORUS 3.5 MG/DL (2.5-4.9); SODIUM 140 MMOL/L (136-145)
[2019-03-09] MEDS: Albuterol/Ipratropium 3ml neb HHN SCH ×4 (07:22→19:08)
[2019-03-09] MEDS: Heparin 5000 units/ml inj SUBQ SCH ×2 (09:00→20:23)
--- NOTE | 2019-03-09 09:34 | Diagnostic Imaging Report ---
Indication: Dyspnea Technique: One view of the chest Comparison: 03/08/2019 Findings: Patient is rotated to the right. Endotracheal tube is been removed. Left pleural effusion and likely consolidation/atelectasis persists. Interstitial markings appear more prominent, although this may be an artifact of lower lung volumes. Impression: Interim extubation Slightly increased interstitial prominence, may be artifactual due to lower lung volumes. Mild interstitial congestion also possible. Stable left basilar pleural and parenchymal disease
--- NOTE | 2019-03-09 11:07 | Pulmonolgy Critical Care Note ---
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 (6) Alzheimer's dementia (7) Diabetes mellitus (8) Feeding by G-tube Respiratory: monitor respiratory rate, adjust FIO2, CXR Cardiac: continue to monitor HR/BP Renal: F/U I&O, check electrolytes Infectious Disease: check cultures Gastrointestinal: continue feedings/current rate, hold feedings Endocrine: check HgA1C Hematologic: transfuse if hgb<8.5 Neurologic: PRN Ativan, PRN Morphine, keep patient comfortable Affect: PRN ativan Notes Reviewed: drying and winding supervisor, cardio Discussed with: consultants, business case analystclinical education manager - Objective Last 24 Hour Vital Signs Date Time Temp Pulse Resp B/P (MAP) Pulse Ox O2 Delivery O2 Flow Rate FiO2 03/09/19 09:00 70 24 114/47 (69) 100 03/09/19 08:00 8.0 30 03/09/19 08:00 74 26 126/60 (82) 100 03/09/19 08:00 Bi-pap 03/09/19 08:00 66 03/09/19 07:24 67 26 100 Nasal Cannula 4.0 36 03/09/19 07:23 100 Nasal Cannula 4.0 36 03/09/19 07:23 100 4.0 36 03/09/19 07:20 65 20 100 Bi-Pap 30 03/09/19 07:00 98.5 73 15 143/79 (100) 100 03/09/19 06:00 65 14 111/47 (68) 100 03/09/19 05:00 98.5 65 17 116/59 (78) 100 03/09/19 04:53 59 14 100 Full Face 30 03/09/19 04:00 30.0 03/09/19 04:00 62 03/09/19 04:00 Bi-pap 03/09/19 04:00 87 27 105/59 (74) 99 03/09/19 03:30 70 16 100 Facial 30 03/09/19 03:00 73 19 100/53 (69) 100 03/09/19 02:00 73 19 109/59 (76) 100 03/09/19 01:30 71 14 100 Facial 30 03/09/19 01:00 79 15 114/59 (77) 100 03/09/19 00:00 30.0 03/09/19 00:00 99.0 82 14 116/66 (83) 100 03/09/19 00:00 Venturi Mask 03/08/19 23:00 87 27 105/59 (74) 99 03/08/19 23:00 87 48 100 Facial 30 03/08/19 22:00 86 28 104/50 (68) 99 03/08/19 21:00 88 30 108/51 (70) 100 03/08/19 20:12 99 Cool Aerosol 8.0 30 03/08/19 20:00 8.0 30 03/08/19 20:00 Venturi Mask 03/08/19 20:00 99.8 97 30 114/55 (74) 100 03/08/19 20:00 103 20 100 Cool Aerosol 8.0 30 03/08/19 20:00 98 03/08/19 19:50 87 20 98 Cool Aerosol 8.0 30 03/08/19 19:00 84 30 118/53 (74) 100 03/08/19 18:01 100/51 03/08/19 18:00 95 26 120/77 (91) 100 03/08/19 17:00 96 27 84/53 (63) 98 03/08/19 16:00 98.0 92 31 142/121 (128) 98 03/08/19 16:00 40 03/08/19 16:00 93 03/08/19 16:00 Venturi Mask 03/08/19 15:07 81 28 99 Cool Aerosol 8.0 30 03/08/19 15:00 76 13 109/54 (72) 100 03/08/19 14:59 79 29 98 Cool Aerosol 8.0 30 03/08/19 14:57 83 30 100 Cool Aerosol 12.0 40 03/08/19 14:35 84 22 97 Cool Aerosol 12.0 40 03/08/19 14:00 76 24 98/46 (63) 98 03/08/19 13:00 89 24 117/56 (76) 98 03/08/19 12:27 92 24 95 Cool Aerosol 8.0 30 03/08/19 12:24 97 Cool Aerosol 8.0 30 03/08/19 12:20 95 22 94 Cool Aerosol 8.0 30 03/08/19 12:00 Venturi Mask 03/08/19 12:00 78 03/08/19 12:00 98.8 101 27 150/126 (134) 97 03/08/19 12:00 40 03/08/19 11:15 67 24 100 Mechanical Ventilator 40 Status: awake Condition: critical HEENT: atraumatic Neck: full ROM Lungs: clear Heart: HR/BP stable Abdomen: soft, non-tender Extremities: no C/C/E Decubiti: location Accucheck: 116 Critical Care - Subjective ROS Limited/Unobtainable: Yes Interval Events: tolerating extubation, awake, not talking yet. Condition: critical EKG Rhythm: Sinus Rhythm FI02: 30 Vent Support Breath Rate: 14 Vent Support Mode: AC Vent Tidal Volume: 450 Sputum Amount: None PEEP: 5.0 PIP: 13 Tube Feeding Amount: 30 I&O: Intake and Output 03/08/19 03/09/19 18:59 06:59 Intake Total 1995.0 ml 2222.5 ml Output Total 710 ml 1305 ml Balance 1285.0 ml 917.5 ml Intake Free Water 100 ml IV Total 1635.0 ml 1762.5 ml Tube Feeding 360 ml 360 ml Output Urine Total 710 ml 1255 ml Stool Total 50 ml ET-Tube: 7.5 ET Position: 21 Labs: Laboratory Tests Test 03/09/19 04:00 03/09/19 08:53 White Blood Count 4.7 K/UL (4.8-10.8) L Red Blood Count 3.46 M/UL (4.20-5.40) L Hemoglobin 10.0 G/DL (12.0-16.0) L Hematocrit 30.2 % (37.0-47.0) L Mean Corpuscular Volume 87 FL (80-99) Mean Corpuscular Hemoglobin 28.9 PG (27.0-31.0) Mean Corpuscular Hemoglobin Concent 33.1 G/DL (32.0-36.0) Red Cell Distribution Width 13.9 % (11.6-14.8) Platelet Count 192 K/UL (150-450) Mean Platelet Volume 7.1 FL (6.5-10.1) Neutrophils (%) (Auto) 54.6 % (45.0-75.0) Lymphocytes (%) (Auto) 32.1 % (20.0-45.0) Monocytes (%) (Auto) 10.9 % (1.0-10.0) H Eosinophils (%) (Auto) 1.5 % (0.0-3.0) Basophils (%) (Auto) 1.0 % (0.0-2.0) Sodium Level 140 MMOL/L (136-145) Potassium Level 4.0 MMOL/L (3.5-5.1) Chloride Level 108 MMOL/L (98-107) H Carbon Dioxide Level 24 MMOL/L (21-32) Anion Gap 8 mmol/L (5-15) Blood Urea Nitrogen 4 mg/dL (7-18) L Creatinine 0.5 MG/DL (0.55-1.30) L Estimat Glomerular Filtration Rate mL/min (>60) Glucose Level 117 MG/DL (74-106) H Calcium Level 8.5 MG/DL (8.5-10.1) Phosphorus Level 3.5 MG/DL (2.5-4.9) Magnesium Level 2.0 MG/DL (1.8-2.4) Total Bilirubin 0.5 MG/DL (0.2-1.0) Aspartate Amino Transf (AST/SGOT) 17 U/L (15-37) Alanine Aminotransferase (ALT/SGPT) 16 U/L (12-78) Alkaline Phosphatase 119 U/L (46-116) H Total Protein 5.4 G/DL (6.4-8.2) L Albumin 2.0 G/DL (3.4-5.0) L Globulin 3.4 g/dL Albumin/Globulin Ratio 0.6 (1.0-2.7) L Arterial Blood pH 7.456 (7.350-7.450) Arterial Blood Partial Pressure CO2 36.3 mmHg (35.0-45.0) Arterial Blood Partial Pressure O2 92.3 mmHg (75.0-100.0) Arterial Blood HCO3 25.0 mmol/L (22.0-26.0) Arterial Blood Oxygen Saturation 96.7 % (95-100) Arterial Blood Base Excess 1.3 (-2-2) Garry Test Positive Jenifer Patel MD Mar 09, 2019 11:07
--- NOTE | 2019-03-09 13:05 | Internal Med Progress Note ---
Subjective Date of Service: Mar 09, 2019 Physician Name Harsha Arora Attending Physician Solomon Sotomayor MD Current Medications Medications (Trade) Dose Ordered Sig/Judy Route PRN Reason Start Time Stop Time Status Last Admin Dose Admin Acetaminophen (Tylenol) 650 mg Q4H PRN ORAL Mild Pain (Pain Scale 1-3) 03/05/19 16:00 04/04/19 15:59 03/08/19 12:46 Acetaminophen (Tylenol) 650 mg Q4H PRN ORAL FEVER (temp>100.5F) 03/05/19 16:00 04/04/19 15:59 Albuterol/ Ipratropium (Albuterol/ Ipratropium) 3 ml Q4H PRN HHN Shortness of Breath 03/05/19 16:00 03/10/19 15:59 03/08/19 12:19 Albuterol/ Ipratropium (Albuterol/ Ipratropium) 3 ml QIDRT HHN 03/05/19 19:00 03/10/19 18:59 03/09/19 11:06 Chlorhexidine Gluconate (Kami-Hex 2%) 1 applic DAILY@2000 TOPIC 03/08/19 20:00 04/07/19 19:59 03/08/19 20:06 Dextrose (Dextrose 50%) 25 ml Q30M PRN IV Hypoglycemia 03/05/19 16:00 04/04/19 15:59 Dextrose (Dextrose 50%) 50 ml Q30M PRN IV Hypoglycemia 03/05/19 16:00 04/04/19 15:59 Dextrose/ Electrolytes 1,000 ml @ 100 mls/hr Q10H IV 03/05/19 17:00 04/04/19 16:59 03/09/19 11:39 Famotidine (Pepcid I.v.) 20 mg Q12HR IVP 03/05/19 21:00 04/04/19 20:59 03/09/19 11:20 Heparin Sodium (Porcine) (Heparin 5000 units/ml) 5,000 units EVERY 12 HOURS SUBQ 03/05/19 21:00 04/04/19 20:59 03/08/19 08:38 Insulin Aspart (NovoLOG) Q6HR SUBQ 03/09/19 00:00 04/06/19 11:29 03/09/19 05:59 Lorazepam (Ativan) 1 mg Q4H PRN ORAL For Anxiety 03/05/19 16:00 03/12/19 15:59 03/08/19 15:27 Morphine Sulfate (Morphine Sulfate) 1 mg Q4H PRN IVP For Pain 4-10 03/05/19 16:00 03/12/19 15:59 03/08/19 16:28 Nitroglycerin (Ntg) 0.4 mg Q5M PRN SL Prn Chest Pain 03/05/19 16:00 04/04/19 15:59 Norepinephrine Bitartrate 4 mg/ Dextrose 250 ml @ 0 mls/hr Q24H IV 03/05/19 19:15 04/04/19 19:14 03/06/19 16:00 Ondansetron HCl (Zofran) 4 mg Q6H PRN IVP Nausea & Vomiting 03/05/19 16:00 04/04/19 15:59 Piperacillin Sod/ Tazobactam Sod 3.375 gm/Sodium Chloride 110 ml @ 27.5 mls/hr Q8H IVPB 03/05/19 18:00 03/12/19 17:59 03/09/19 11:20 Polyethylene Glycol (Miralax) 17 gm DAILYPRN PRN ORAL Constipation 03/05/19 16:00 04/04/19 15:59 Vancomycin HCl (Vanco rx to dose) 1 ea DAILY PRN MISC Per rx protocol 03/05/19 16:00 04/04/19 15:59 Vancomycin HCl 1.5 gm/Sodium Chloride 275 ml @ 137.5 mls/ hr Q24H IVPB 03/07/19 14:00 03/12/19 13:59 03/08/19 14:14 Allergies: Coded Allergies: No Known Allergies (Unverified , 03/05/19) ROS Limited/Unobtainable: Yes Subjective 88 YO F admitted with respiratory failure. Now pneumonia. Extubated 03/08/19; on BIPAP. Cover for Int med-Dr Sotomayor. ICU Objective Last Vital Signs Date Time Temp Pulse Resp B/P (MAP) Pulse Ox O2 Delivery O2 Flow Rate FiO2 03/09/19 12:00 99.2 75 24 116/55 (75) 100 03/09/19 12:00 Bi-pap 03/09/19 12:00 4.0 03/09/19 11:07 36 Laboratory Tests Test 03/09/19 04:00 03/09/19 08:53 White Blood Count 4.7 K/UL (4.8-10.8) L Red Blood Count 3.46 M/UL (4.20-5.40) L Hemoglobin 10.0 G/DL (12.0-16.0) L Hematocrit 30.2 % (37.0-47.0) L Mean Corpuscular Volume 87 FL (80-99) Mean Corpuscular Hemoglobin 28.9 PG (27.0-31.0) Mean Corpuscular Hemoglobin Concent 33.1 G/DL (32.0-36.0) Red Cell Distribution Width 13.9 % (11.6-14.8) Platelet Count 192 K/UL (150-450) Mean Platelet Volume 7.1 FL (6.5-10.1) Neutrophils (%) (Auto) 54.6 % (45.0-75.0) Lymphocytes (%) (Auto) 32.1 % (20.0-45.0) Monocytes (%) (Auto) 10.9 % (1.0-10.0) H Eosinophils (%) (Auto) 1.5 % (0.0-3.0) Basophils (%) (Auto) 1.0 % (0.0-2.0) Sodium Level 140 MMOL/L (136-145) Potassium Level 4.0 MMOL/L (3.5-5.1) Chloride Level 108 MMOL/L (98-107) H Carbon Dioxide Level 24 MMOL/L (21-32) Anion Gap 8 mmol/L (5-15) Blood Urea Nitrogen 4 mg/dL (7-18) L Creatinine 0.5 MG/DL (0.55-1.30) L Estimat Glomerular Filtration Rate mL/min (>60) Glucose Level 117 MG/DL (74-106) H Calcium Level 8.5 MG/DL (8.5-10.1) Phosphorus Level 3.5 MG/DL (2.5-4.9) Magnesium Level 2.0 MG/DL (1.8-2.4) Total Bilirubin 0.5 MG/DL (0.2-1.0) Aspartate Amino Transf (AST/SGOT) 17 U/L (15-37) Alanine Aminotransferase (ALT/SGPT) 16 U/L (12-78) Alkaline Phosphatase 119 U/L (46-116) H Total Protein 5.4 G/DL (6.4-8.2) L Albumin 2.0 G/DL (3.4-5.0) L Globulin 3.4 g/dL Albumin/Globulin Ratio 0.6 (1.0-2.7) L Arterial Blood pH 7.456 (7.350-7.450) Arterial Blood Partial Pressure CO2 36.3 mmHg (35.0-45.0) Arterial Blood Partial Pressure O2 92.3 mmHg (75.0-100.0) Arterial Blood HCO3 25.0 mmol/L (22.0-26.0) Arterial Blood Oxygen Saturation 96.7 % (95-100) Arterial Blood Base Excess 1.3 (-2-2) Garry Test Positive Intake and Output 03/08/19 03/09/19 18:59 06:59 Intake Total 1995.0 ml 2222.5 ml Output Total 710 ml 1305 ml Balance 1285.0 ml 917.5 ml Intake Free Water 100 ml IV Total 1635.0 ml 1762.5 ml Tube Feeding 360 ml 360 ml Output Urine Total 710 ml 1255 ml Stool Total 50 ml Objective PHYSICAL EXAMINATION: VITAL SIGNS: Temperature 98.2, respirations 21, pulse 73, blood pressure 89/48. GENERAL: The patient is a well-developed and well-nourished female, who is intubated and sedated. HEENT: Eyes pupils equal and responsive to light and accommodation. Extraocular movements are intact. NECK: Supple without lymphadenopathy. CHEST: Venturi mask; Crackles in bilateral bases with expiratory wheezes. CARDIOVASCULAR: Regular rhythm and rate. S1 and S2 normal without murmurs, rubs, or gallops. ABDOMEN: Soft, nontender, nondistended. Positive bowel sounds. No evidence of hepatosplenomegaly. Currently, no rebound or guarding noted. EXTREMITIES: Negative for clubbing, cyanosis, or edema. RECTAL/GENITAL: Not performed. NEUROLOGIC: Unable to assess secondary to sedation. Assessment/Plan Assessment/Plan ASSESSMENT: This is an 88-year-old female. 1. Respiratory failure. 2. Left pneumonia. 3. Hypertension. 4. Diabetes type 2. 5. Renal insufficiency. 6. Alzheimer dementia. 7. Bipolar depression. 8. Sacral decubitus ulcer, stage IV. TREATMENT: 1. Respiratory failure/pneumonia. A Pulmonary consultation has been obtained with Dr. Jenifer Patel. The patient is currently extubated on venturi mask The patient has been started empirically on Zosyn and vancomycin. We will follow recommendations of Pulmonary. 2. Hypertension. The patient is currently hypotensive on Levophed. 3. Diabetes type 2. The patient has been placed on NovoLog sliding scale. 4. Renal insufficiency. 5. Alzheimer dementia. Continue Aricept as above. 6. Bipolar depression. Continue Risperdal as above. 7. Sacral decubitus ulcer stage IV. 8. The patient is a Full Code according to the POLST in the chart. Harsha Arora MD Mar 09, 2019 13:05
[2019-03-09] MEDS: Vancomycin 1.5 GM in NS 275 ML IVPB SCH (13:34)
--- NOTE | 2019-03-09 14:33 | Infectious Diseases Prog Note ---
Assessment/Plan Assessment/Plan Respiratory failure Proabable PNA Sp Cx pend Blood Cx growing CoNS and Enterococcus Most likely contaminant f/u Repeat Blood Cx HTN DM Renal disease Bipolar depression. Sacral decubitus ulcer, stage IV. Alzheimer dementia. S/P PEG Extuabted 03/08/19 PLAN - Continue Zosyn #01/25-10 and Vanco #01/25- - f/u repeat Blood Cx - f/u Sputum Cx - Monitor CBC and Temps Thank you for this consult. We will continue to follow the patient during this hospitalization. Subjective Allergies: Coded Allergies: No Known Allergies (Unverified , 03/05/19) Subjective Afebrile No Leukocytosis On BiPAP Objective Vital Signs Last 24 Hour Vital Signs Date Time Temp Pulse Resp B/P (MAP) Pulse Ox O2 Delivery O2 Flow Rate FiO2 03/09/19 13:00 66 21 137/70 (92) 100 03/09/19 12:00 99.2 75 24 116/55 (75) 100 03/09/19 12:00 76 03/09/19 12:00 Bi-pap 03/09/19 12:00 4.0 03/09/19 11:07 77 23 100 Nasal Cannula 4.0 36 03/09/19 11:00 73 25 136/58 (84) 100 03/09/19 11:00 72 23 100 Nasal Cannula 4.0 36 03/09/19 10:00 70 25 115/51 (72) 100 03/09/19 09:00 70 24 114/47 (69) 100 03/09/19 08:00 8.0 30 03/09/19 08:00 74 26 126/60 (82) 100 03/09/19 08:00 Bi-pap 03/09/19 08:00 66 03/09/19 07:24 67 26 100 Nasal Cannula 4.0 36 03/09/19 07:23 100 Nasal Cannula 4.0 36 03/09/19 07:23 100 4.0 36 03/09/19 07:20 65 20 100 Bi-Pap 30 03/09/19 07:00 98.5 73 15 143/79 (100) 100 03/09/19 06:00 65 14 111/47 (68) 100 03/09/19 05:00 98.5 65 17 116/59 (78) 100 03/09/19 04:53 59 14 100 Full Face 30 03/09/19 04:00 30.0 03/09/19 04:00 62 03/09/19 04:00 Bi-pap 03/09/19 04:00 87 27 105/59 (74) 99 03/09/19 03:30 70 16 100 Facial 30 03/09/19 03:00 73 19 100/53 (69) 100 03/09/19 02:00 73 19 109/59 (76) 100 03/09/19 01:30 71 14 100 Facial 30 03/09/19 01:00 79 15 114/59 (77) 100 03/09/19 00:00 30.0 03/09/19 00:00 99.0 82 14 116/66 (83) 100 03/09/19 00:00 Venturi Mask 03/08/19 23:00 87 27 105/59 (74) 99 03/08/19 23:00 87 48 100 Facial 30 03/08/19 22:00 86 28 104/50 (68) 99 03/08/19 21:00 88 30 108/51 (70) 100 03/08/19 20:12 99 Cool Aerosol 8.0 30 03/08/19 20:00 8.0 30 03/08/19 20:00 Venturi Mask 03/08/19 20:00 99.8 97 30 114/55 (74) 100 03/08/19 20:00 103 20 100 Cool Aerosol 8.0 30 03/08/19 20:00 98 03/08/19 19:50 87 20 98 Cool Aerosol 8.0 30 03/08/19 19:00 84 30 118/53 (74) 100 03/08/19 18:01 100/51 03/08/19 18:00 95 26 120/77 (91) 100 03/08/19 17:00 96 27 84/53 (63) 98 03/08/19 16:00 98.0 92 31 142/121 (128) 98 03/08/19 16:00 40 03/08/19 16:00 93 03/08/19 16:00 Venturi Mask 03/08/19 15:07 81 28 99 Cool Aerosol 8.0 30 03/08/19 15:00 76 13 109/54 (72) 100 03/08/19 14:59 79 29 98 Cool Aerosol 8.0 30 03/08/19 14:57 83 30 100 Cool Aerosol 12.0 40 03/08/19 14:35 84 22 97 Cool Aerosol 12.0 40 Height (Feet): 5 Height (Inches): 6.00 Weight (Pounds): 160 Objective Gen: Awake on BiPAP HEENT: NCAT, MMM, LUNGS: CTAB, No W CARDS: RRR, S1, S2 ABD: Soft, ND, + BS, No HSM, PEG ( No E/P) Laboratory Tests Test 03/09/19 04:00 03/09/19 08:53 White Blood Count 4.7 K/UL (4.8-10.8) L Red Blood Count 3.46 M/UL (4.20-5.40) L Hemoglobin 10.0 G/DL (12.0-16.0) L Hematocrit 30.2 % (37.0-47.0) L Mean Corpuscular Volume 87 FL (80-99) Mean Corpuscular Hemoglobin 28.9 PG (27.0-31.0) Mean Corpuscular Hemoglobin Concent 33.1 G/DL (32.0-36.0) Red Cell Distribution Width 13.9 % (11.6-14.8) Platelet Count 192 K/UL (150-450) Mean Platelet Volume 7.1 FL (6.5-10.1) Neutrophils (%) (Auto) 54.6 % (45.0-75.0) Lymphocytes (%) (Auto) 32.1 % (20.0-45.0) Monocytes (%) (Auto) 10.9 % (1.0-10.0) H Eosinophils (%) (Auto) 1.5 % (0.0-3.0) Basophils (%) (Auto) 1.0 % (0.0-2.0) Sodium Level 140 MMOL/L (136-145) Potassium Level 4.0 MMOL/L (3.5-5.1) Chloride Level 108 MMOL/L (98-107) H Carbon Dioxide Level 24 MMOL/L (21-32) Anion Gap 8 mmol/L (5-15) Blood Urea Nitrogen 4 mg/dL (7-18) L Creatinine 0.5 MG/DL (0.55-1.30) L Estimat Glomerular Filtration Rate mL/min (>60) Glucose Level 117 MG/DL (74-106) H Calcium Level 8.5 MG/DL (8.5-10.1) Phosphorus Level 3.5 MG/DL (2.5-4.9) Magnesium Level 2.0 MG/DL (1.8-2.4) Total Bilirubin 0.5 MG/DL (0.2-1.0) Aspartate Amino Transf (AST/SGOT) 17 U/L (15-37) Alanine Aminotransferase (ALT/SGPT) 16 U/L (12-78) Alkaline Phosphatase 119 U/L (46-116) H Total Protein 5.4 G/DL (6.4-8.2) L Albumin 2.0 G/DL (3.4-5.0) L Globulin 3.4 g/dL Albumin/Globulin Ratio 0.6 (1.0-2.7) L Arterial Blood pH 7.456 (7.350-7.450) Arterial Blood Partial Pressure CO2 36.3 mmHg (35.0-45.0) Arterial Blood Partial Pressure O2 92.3 mmHg (75.0-100.0) Arterial Blood HCO3 25.0 mmol/L (22.0-26.0) Arterial Blood Oxygen Saturation 96.7 % (95-100) Arterial Blood Base Excess 1.3 (-2-2) Garry Test Positive Current Medications Medications (Trade) Dose Ordered Sig/Judy Route PRN Reason Start Time Stop Time Status Last Admin Dose Admin Acetaminophen (Tylenol) 650 mg Q4H PRN ORAL Mild Pain (Pain Scale 1-3) 03/05/19 16:00 04/04/19 15:59 03/08/19 12:46 Acetaminophen (Tylenol) 650 mg Q4H PRN ORAL FEVER (temp>100.5F) 03/05/19 16:00 04/04/19 15:59 Albuterol/ Ipratropium (Albuterol/ Ipratropium) 3 ml Q4H PRN HHN Shortness of Breath 03/05/19 16:00 03/10/19 15:59 03/08/19 12:19 Albuterol/ Ipratropium (Albuterol/ Ipratropium) 3 ml QIDRT HHN 03/05/19 19:00 03/10/19 18:59 03/09/19 11:06 Chlorhexidine Gluconate (Kami-Hex 2%) 1 applic DAILY@2000 TOPIC 03/08/19 20:00 04/07/19 19:59 03/08/19 20:06 Dextrose (Dextrose 50%) 25 ml Q30M PRN IV Hypoglycemia 03/05/19 16:00 04/04/19 15:59 Dextrose (Dextrose 50%) 50 ml Q30M PRN IV Hypoglycemia 03/05/19 16:00 04/04/19 15:59 Dextrose/ Electrolytes 1,000 ml @ 100 mls/hr Q10H IV 03/05/19 17:00 04/04/19 16:59 03/09/19 11:39 Famotidine (Pepcid I.v.) 20 mg Q12HR IVP 03/05/19 21:00 04/04/19 20:59 03/09/19 11:20 Heparin Sodium (Porcine) (Heparin 5000 units/ml) 5,000 units EVERY 12 HOURS SUBQ 03/05/19 21:00 04/04/19 20:59 03/08/19 08:38 Insulin Aspart (NovoLOG) Q6HR SUBQ 03/09/19 00:00 04/06/19 11:29 03/09/19 05:59 Lorazepam (Ativan) 1 mg Q4H PRN ORAL For Anxiety 03/05/19 16:00 03/12/19 15:59 03/08/19 15:27 Morphine Sulfate (Morphine Sulfate) 1 mg Q4H PRN IVP For Pain 4-10 03/05/19 16:00 03/12/19 15:59 03/08/19 16:28 Nitroglycerin (Ntg) 0.4 mg Q5M PRN SL Prn Chest Pain 03/05/19 16:00 04/04/19 15:59 Norepinephrine Bitartrate 4 mg/ Dextrose 250 ml @ 0 mls/hr Q24H IV 03/05/19 19:15 04/04/19 19:14 03/06/19 16:00 Ondansetron HCl (Zofran) 4 mg Q6H PRN IVP Nausea & Vomiting 03/05/19 16:00 04/04/19 15:59 Piperacillin Sod/ Tazobactam Sod 3.375 gm/Sodium Chloride 110 ml @ 27.5 mls/hr Q8H IVPB 03/05/19 18:00 03/12/19 17:59 03/09/19 11:20 Polyethylene Glycol (Miralax) 17 gm DAILYPRN PRN ORAL Constipation 03/05/19 16:00 04/04/19 15:59 Vancomycin HCl (Vanco rx to dose) 1 ea DAILY PRN MISC Per rx protocol 03/05/19 16:00 04/04/19 15:59 Vancomycin HCl 1.5 gm/Sodium Chloride 275 ml @ 137.5 mls/ hr Q24H IVPB 03/07/19 14:00 03/12/19 13:59 03/09/19 13:34 Bandar Hwang MD Mar 09, 2019 14:33
--- NOTE | 2019-03-09 15:22 | Cardiac Electrophysiology PN ---
Assessment/Plan Assessment/Plan 1. S/P Septic shock. Lactic acid was 3.3. EF 50%. The patient is already on Abx and off pressors 2. S/P Respiratory failure, extubated 3. UTI. 4. Dysphagia, status post PEG placement. 5. History of encephalopathy. 6. Diabetes. 7. Multinodular toxic goiter. 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 Remained in SR. Going to [facility]. Daughter at bedside Objective Last 24 Hour Vital Signs Date Time Temp Pulse Resp B/P (MAP) Pulse Ox O2 Delivery O2 Flow Rate FiO2 03/09/19 15:00 73 26 100 Nasal Cannula 4.0 36 03/09/19 14:52 75 22 98 Nasal Cannula 4.0 36 03/09/19 14:00 97.0 61 22 131/108 (116) 100 03/09/19 13:00 66 21 137/70 (92) 100 03/09/19 12:00 99.2 75 24 116/55 (75) 100 03/09/19 12:00 76 03/09/19 12:00 Bi-pap 03/09/19 12:00 4.0 03/09/19 11:07 77 23 100 Nasal Cannula 4.0 36 03/09/19 11:00 73 25 136/58 (84) 100 03/09/19 11:00 72 23 100 Nasal Cannula 4.0 36 03/09/19 10:00 70 25 115/51 (72) 100 03/09/19 09:00 70 24 114/47 (69) 100 03/09/19 08:00 8.0 30 03/09/19 08:00 74 26 126/60 (82) 100 03/09/19 08:00 Bi-pap 03/09/19 08:00 66 03/09/19 07:24 67 26 100 Nasal Cannula 4.0 36 03/09/19 07:23 100 Nasal Cannula 4.0 36 03/09/19 07:23 100 4.0 36 03/09/19 07:20 65 20 100 Bi-Pap 30 03/09/19 07:00 98.5 73 15 143/79 (100) 100 03/09/19 06:00 65 14 111/47 (68) 100 03/09/19 05:00 98.5 65 17 116/59 (78) 100 6/19/19 04:53 59 14 100 Full Face 30 03/09/19 04:00 30.0 03/09/19 04:00 62 03/09/19 04:00 Bi-pap 03/09/19 04:00 87 27 105/59 (74) 99 03/09/19 03:30 70 16 100 Facial 30 03/09/19 03:00 73 19 100/53 (69) 100 03/09/19 02:00 73 19 109/59 (76) 100 03/09/19 01:30 71 14 100 Facial 30 03/09/19 01:00 79 15 114/59 (77) 100 03/09/19 00:00 30.0 03/09/19 00:00 99.0 82 14 116/66 (83) 100 03/09/19 00:00 Venturi Mask 03/08/19 23:00 87 27 105/59 (74) 99 03/08/19 23:00 87 48 100 Facial 30 03/08/19 22:00 86 28 104/50 (68) 99 03/08/19 21:00 88 30 108/51 (70) 100 03/08/19 20:12 99 Cool Aerosol 8.0 30 03/08/19 20:00 8.0 30 03/08/19 20:00 Venturi Mask 03/08/19 20:00 99.8 97 30 114/55 (74) 100 03/08/19 20:00 103 20 100 Cool Aerosol 8.0 30 03/08/19 20:00 98 03/08/19 19:50 87 20 98 Cool Aerosol 8.0 30 03/08/19 19:00 84 30 118/53 (74) 100 03/08/19 18:01 100/51 03/08/19 18:00 95 26 120/77 (91) 100 03/08/19 17:00 96 27 84/53 (63) 98 03/08/19 16:00 98.0 92 31 142/121 (128) 98 03/08/19 16:00 40 03/08/19 16:00 93 03/08/19 16:00 Venturi Mask Intake and Output 03/08/19 03/09/19 19:00 07:00 Intake Total 2042.5 ml 2175.0 ml Output Total 780 ml 1205 ml Balance 1262.5 ml 970.0 ml Intake Free Water 100 ml IV Total 1682.5 ml 1715.0 ml Tube Feeding 360 ml 360 ml Output Urine Total 780 ml 1155 ml Stool Total 50 ml Laboratory Tests Test 03/09/19 04:00 03/09/19 08:53 White Blood Count 4.7 K/UL (4.8-10.8) L Red Blood Count 3.46 M/UL (4.20-5.40) L Hemoglobin 10.0 G/DL (12.0-16.0) L Hematocrit 30.2 % (37.0-47.0) L Mean Corpuscular Volume 87 FL (80-99) Mean Corpuscular Hemoglobin 28.9 PG (27.0-31.0) Mean Corpuscular Hemoglobin Concent 33.1 G/DL (32.0-36.0) Red Cell Distribution Width 13.9 % (11.6-14.8) Platelet Count 192 K/UL (150-450) Mean Platelet Volume 7.1 FL (6.5-10.1) Neutrophils (%) (Auto) 54.6 % (45.0-75.0) Lymphocytes (%) (Auto) 32.1 % (20.0-45.0) Monocytes (%) (Auto) 10.9 % (1.0-10.0) H Eosinophils (%) (Auto) 1.5 % (0.0-3.0) Basophils (%) (Auto) 1.0 % (0.0-2.0) Sodium Level 140 MMOL/L (136-145) Potassium Level 4.0 MMOL/L (3.5-5.1) Chloride Level 108 MMOL/L (98-107) H Carbon Dioxide Level 24 MMOL/L (21-32) Anion Gap 8 mmol/L (5-15) Blood Urea Nitrogen 4 mg/dL (7-18) L Creatinine 0.5 MG/DL (0.55-1.30) L Estimat Glomerular Filtration Rate mL/min (>60) Glucose Level 117 MG/DL (74-106) H Calcium Level 8.5 MG/DL (8.5-10.1) Phosphorus Level 3.5 MG/DL (2.5-4.9) Magnesium Level 2.0 MG/DL (1.8-2.4) Total Bilirubin 0.5 MG/DL (0.2-1.0) Aspartate Amino Transf (AST/SGOT) 17 U/L (15-37) Alanine Aminotransferase (ALT/SGPT) 16 U/L (12-78) Alkaline Phosphatase 119 U/L (46-116) H Total Protein 5.4 G/DL (6.4-8.2) L Albumin 2.0 G/DL (3.4-5.0) L Globulin 3.4 g/dL Albumin/Globulin Ratio 0.6 (1.0-2.7) L Arterial Blood pH 7.456 (7.350-7.450) Arterial Blood Partial Pressure CO2 36.3 mmHg (35.0-45.0) Arterial Blood Partial Pressure O2 92.3 mmHg (75.0-100.0) Arterial Blood HCO3 25.0 mmol/L (22.0-26.0) Arterial Blood Oxygen Saturation 96.7 % (95-100) Arterial Blood Base Excess 1.3 (-2-2) Garry Test Positive Objective HEAD AND NECK: No JVD. LUNGS: Coarse rhonchi. CARDIOVASCULAR: Shows regular S1 and S2 with no murmur or gallop. ABDOMEN: Soft with PEG in place. EXTREMITIES: 1+ pitting edema. Rusty Garsia MD Mar 09, 2019 15:22
[2019-03-09] MEDS ORDERED: Nitroglycerin Subl 0.4mg tab SL PRN (18:15)
[2019-03-09] MEDS ORDERED: Miralax 17gm pkt ORAL PRN (19:00)
[2019-03-09] MEDS ORDERED: Morphine Sulfate 2mg/ml Inj(IV/IM USE ONLY) IVP PRN (19:00)
[2019-03-09] MEDS ORDERED: Albuterol/Ipratropium 3ml neb HHN PRN (19:00)
[2019-03-09] MEDS ORDERED: Dyna-Hex 2% Top Sol 2oz TOPIC SCH (20:00)
[2019-03-09] MEDS: LORazepam 1mg tab ORAL PRN (23:02)
[2019-03-10] VITALS: BP 124/58
[2019-03-10] MEDS: Piperacillin/Tazobactam 3.375 GM in NS 110 ML IVPB SCH ×2 (01:41→10:03)
[2019-03-10] MEDS: LORazepam 1mg tab ORAL PRN (03:19)
[2019-03-10] MEDS: D5 1/2NS w/KCl 20mEq 1,000 ML IV SCH (03:41)
[2019-03-10 04:00] VITALS: BP 126/70
[2019-03-10] MEDS: NovoLOG Insulin Flexpen SUBQ SCH ×2 (05:39→12:00)
[2019-03-10 06:58] LABS: BASOPHILS % (AUTO) 1.1 % (0.0-2.0); EOSINOPHILS % (AUTO) 6.6 % (0.0-3.0); HEMATOCRIT 30.3 % (37.0-47.0); HEMOGLOBIN 10.1 G/DL (12.0-16.0); LYMPHOCYTES % (AUTO) 31.3 % (20.0-45.0); MEAN CORPUSCULAR VOLUME 88 FL (80-99); MONOCYTES % (AUTO) 12.9 % (1.0-10.0); NEUTROPHILS % (AUTO) 48.1 % (45.0-75.0); PLATELET COUNT 196 K/UL (150-450); RED BLOOD COUNT 3.43 M/UL (4.20-5.40); RED CELL DISTRIBUTION WIDTH 14.5 % (11.6-14.8)
[2019-03-10 07:19] LABS: ALANINE AMINOTRANSFERASE 18 U/L (12-78); ALBUMIN/GLOBULIN RATIO 0.6 (1.0-2.7); ALKALINE PHOSPHATASE 112 U/L (46-116); ANION GAP 9 mmol/L (5-15); ASPARTATE AMINO TRANSFERASE 16 U/L (15-37); BILIRUBIN,TOTAL 0.5 MG/DL (0.2-1.0); BLOOD UREA NITROGEN 5 mg/dL (7-18); CARBON DIOXIDE 27 MMOL/L (21-32); CHLORIDE 108 MMOL/L (98-107); CREATININE 0.6 MG/DL (0.55-1.30); POTASSIUM 4.1 MMOL/L (3.5-5.1); SODIUM 144 MMOL/L (136-145)
[2019-03-10] MEDS: Albuterol/Ipratropium 3ml neb HHN SCH ×3 (07:19→15:54)
[2019-03-10] MEDS: Heparin 5000 units/ml inj SUBQ SCH (08:30)
--- NOTE | 2019-03-10 10:21 | Infectious Diseases Prog Note ---
Assessment/Plan Assessment/Plan Respiratory failure Proabable PNA Sp Cx pend Blood Cx growing CoNS and Enterococcus Most likely contaminant f/u Repeat Blood Cx HTN DM Renal disease Bipolar depression. Sacral decubitus ulcer, stage IV. Alzheimer dementia. S/P PEG Extuabted 03/08/19 PLAN - Continue Zosyn #6/7-10 - 03/10/19 SP Vanco #6 - No MRSA Cx - f/u repeat Blood Cx - f/u Sputum Cx - Monitor CBC and Temps Thank you for this consult. We will continue to follow the patient during this hospitalization. Subjective Allergies: Coded Allergies: No Known Allergies (Unverified , 03/05/19) Subjective Afebrile No Leukocytosis On NC Objective Vital Signs Last 24 Hour Vital Signs Date Time Temp Pulse Resp B/P (MAP) Pulse Ox O2 Delivery O2 Flow Rate FiO2 03/10/19 07:26 75 20 100 Nasal Cannula 3.0 32 03/10/19 07:16 70 20 100 Nasal Cannula 3.0 32 03/10/19 07:12 77 20 99 Nasal Cannula 3.0 32 03/10/19 07:12 99 Nasal Cannula 3.0 32 03/10/19 04:00 30.0 03/10/19 04:00 Nasal Cannula 3.0 03/10/19 04:00 98.1 73 20 126/70 (88) 98 03/10/19 03:23 68 03/10/19 03:01 68 14 100 Facial 30 03/10/19 01:11 71 15 100 Facial 30 03/10/19 00:00 Nasal Cannula 3.0 03/10/19 00:00 30.0 03/10/19 00:00 70 03/10/19 00:00 98.1 72 20 124/58 (80) 99 03/09/19 22:45 79 31 100 Facial 30 03/09/19 20:00 Nasal Cannula 3.0 03/09/19 20:00 30.0 03/09/19 20:00 69 03/09/19 20:00 98.0 73 20 99/53 (68) 99 03/09/19 19:18 68 20 100 Nasal Cannula 3.0 32 03/09/19 19:08 66 20 98 Nasal Cannula 3.0 32 03/09/19 19:07 98 Nasal Cannula 3.0 32 03/09/19 17:00 74 22 107/53 (71) 100 03/09/19 16:00 4.0 03/09/19 16:00 97.0 77 22 110/55 (73) 100 03/09/19 16:00 71 03/09/19 16:00 Nasal Cannula 3.0 03/09/19 15:00 85 25 114/52 (72) 100 03/09/19 15:00 73 26 100 Nasal Cannula 4.0 36 03/09/19 14:52 75 22 98 Nasal Cannula 4.0 36 03/09/19 14:00 97.0 61 22 131/108 (116) 100 03/09/19 13:00 66 21 137/70 (92) 100 03/09/19 12:00 99.2 75 24 116/55 (75) 100 03/09/19 12:00 76 03/09/19 12:00 Bi-pap 03/09/19 12:00 4.0 03/09/19 11:07 77 23 100 Nasal Cannula 4.0 36 03/09/19 11:00 73 25 136/58 (84) 100 03/09/19 11:00 72 23 100 Nasal Cannula 4.0 36 Height (Feet): 5 Height (Inches): 6.00 Weight (Pounds): 160 Objective Gen: Awake on 3L NC HEENT: NCAT, MMM, LUNGS: CTAB, No W CARDS: RRR, S1, S2 ABD: Soft, ND, + BS, No HSM, PEG ( No E/P) Microbiology Date/Time Source Procedure Growth Status 03/08/19 11:50 Blood Blood Culture - Preliminary NO GROWTH AFTER 24 HOURS Resulted 03/08/19 11:40 Blood Blood Culture - Preliminary NO GROWTH AFTER 24 HOURS Resulted 03/07/19 21:30 Sputum Expectorated Gram Stain - Final Complete 03/07/19 21:30 Sputum Expectorated Sputum Culture - Final NORMAL UPPER RESPIRATORY SARA PRESENT Complete Laboratory Tests Test 03/10/19 03:20 White Blood Count 4.0 K/UL (4.8-10.8) L Red Blood Count 3.43 M/UL (4.20-5.40) L Hemoglobin 10.1 G/DL (12.0-16.0) L Hematocrit 30.3 % (37.0-47.0) L Mean Corpuscular Volume 88 FL (80-99) Mean Corpuscular Hemoglobin 29.3 PG (27.0-31.0) Mean Corpuscular Hemoglobin Concent 33.1 G/DL (32.0-36.0) Red Cell Distribution Width 14.5 % (11.6-14.8) Platelet Count 196 K/UL (150-450) Mean Platelet Volume 6.8 FL (6.5-10.1) Neutrophils (%) (Auto) 48.1 % (45.0-75.0) Lymphocytes (%) (Auto) 31.3 % (20.0-45.0) Monocytes (%) (Auto) 12.9 % (1.0-10.0) H Eosinophils (%) (Auto) 6.6 % (0.0-3.0) H Basophils (%) (Auto) 1.1 % (0.0-2.0) Sodium Level 144 MMOL/L (136-145) Potassium Level 4.1 MMOL/L (3.5-5.1) Chloride Level 108 MMOL/L (98-107) H Carbon Dioxide Level 27 MMOL/L (21-32) Anion Gap 9 mmol/L (5-15) Blood Urea Nitrogen 5 mg/dL (7-18) L Creatinine 0.6 MG/DL (0.55-1.30) Estimat Glomerular Filtration Rate mL/min (>60) Glucose Level 92 MG/DL (74-106) Calcium Level 9.0 MG/DL (8.5-10.1) Total Bilirubin 0.5 MG/DL (0.2-1.0) Aspartate Amino Transf (AST/SGOT) 16 U/L (15-37) Alanine Aminotransferase (ALT/SGPT) 18 U/L (12-78) Alkaline Phosphatase 112 U/L (46-116) Total Protein 5.5 G/DL (6.4-8.2) L Albumin 2.0 G/DL (3.4-5.0) L Globulin 3.5 g/dL Albumin/Globulin Ratio 0.6 (1.0-2.7) L Current Medications Medications (Trade) Dose Ordered Sig/Judy Route PRN Reason Start Time Stop Time Status Last Admin Dose Admin Acetaminophen (Tylenol) 650 mg Q4H PRN ORAL FEVER (temp>100.5F) 03/09/19 19:00 04/04/19 18:59 Acetaminophen (Tylenol) 650 mg Q4H PRN ORAL Mild Pain (Pain Scale 1-3) 03/09/19 19:00 04/04/19 18:59 Albuterol/ Ipratropium (Albuterol/ Ipratropium) 3 ml Q4H PRN HHN Shortness of Breath 03/09/19 19:00 03/10/19 18:59 Albuterol/ Ipratropium (Albuterol/ Ipratropium) 3 ml QIDRT HHN 03/09/19 19:00 03/10/19 18:59 03/10/19 07:19 Chlorhexidine Gluconate (Kami-Hex 2%) 1 applic DAILY@2000 TOPIC 03/09/19 20:00 04/07/19 19:59 03/09/19 20:21 Dextrose (Dextrose 50%) 25 ml Q30M PRN IV Hypoglycemia 03/09/19 18:30 04/04/19 15:59 Dextrose (Dextrose 50%) 50 ml Q30M PRN IV Hypoglycemia 03/09/19 18:30 04/04/19 15:59 Dextrose/ Electrolytes 1,000 ml @ 100 mls/hr Q10H IV 03/09/19 18:15 04/04/19 16:59 03/10/19 03:41 Famotidine (Pepcid I.v.) 20 mg Q12HR IVP 03/09/19 21:00 04/04/19 20:59 03/10/19 10:02 Heparin Sodium (Porcine) (Heparin 5000 units/ml) 5,000 units EVERY 12 HOURS SUBQ 03/09/19 21:00 04/04/19 20:59 03/10/19 08:30 Insulin Aspart (NovoLOG) Q6HR SUBQ 03/10/19 00:00 04/06/19 11:29 Lorazepam (Ativan) 1 mg Q4H PRN ORAL For Anxiety 03/09/19 19:00 03/12/19 18:59 03/10/19 03:19 Morphine Sulfate (Morphine Sulfate) 1 mg Q4H PRN IVP For Pain 4-10 03/09/19 19:00 03/12/19 18:59 Nitroglycerin (Ntg) 0.4 mg Q5M PRN SL Prn Chest Pain 03/09/19 18:15 04/04/19 15:59 Ondansetron HCl (Zofran) 4 mg Q6H PRN IVP Nausea & Vomiting 03/09/19 19:00 04/04/19 18:59 Piperacillin Sod/ Tazobactam Sod 3.375 gm/Sodium Chloride 110 ml @ 27.5 mls/hr Q8H IVPB 03/10/19 02:00 03/12/19 17:59 03/10/19 10:03 Polyethylene Glycol (Miralax) 17 gm DAILYPRN PRN ORAL Constipation 03/09/19 19:00 04/08/19 18:59 Vancomycin HCl (Vanco rx to dose) 1 ea DAILY PRN MISC Per rx protocol 03/09/19 19:00 04/08/19 18:59 Vancomycin HCl 1.5 gm/Sodium Chloride 275 ml @ 137.5 mls/ hr Q24H IVPB 03/10/19 14:00 03/12/19 13:59 Bandar Hwang MD Mar 10, 2019 10:21
--- NOTE | 2019-03-10 10:57 | Pulmonolgy Critical Care Note ---
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 (6) Alzheimer's dementia (7) Diabetes mellitus (8) Feeding by G-tube Respiratory: monitor respiratory rate, adjust FIO2, other - still dyspnic Cardiac: continue to monitor HR/BP Renal: F/U I&O, keep IV fluid, check electrolytes Infectious Disease: check cultures, continue antibiotics Gastrointestinal: continue feedings/current rate Endocrine: monitor blood sugar Hematologic: monitor H/H, transfuse if hgb<8.5 Neurologic: keep patient comfortable Affect: PRN ativan Prophylaxis: Protonix Notes Reviewed: director of medical review Discussed with: nurses, case plannerarts administrator or manager - Objective Last 24 Hour Vital Signs Date Time Temp Pulse Resp B/P (MAP) Pulse Ox O2 Delivery O2 Flow Rate FiO2 03/10/19 07:26 75 20 100 Nasal Cannula 3.0 32 03/10/19 07:16 70 20 100 Nasal Cannula 3.0 32 03/10/19 07:12 77 20 99 Nasal Cannula 3.0 32 03/10/19 07:12 99 Nasal Cannula 3.0 32 03/10/19 04:00 30.0 03/10/19 04:00 Nasal Cannula 3.0 03/10/19 04:00 98.1 73 20 126/70 (88) 98 03/10/19 03:23 68 03/10/19 03:01 68 14 100 Facial 30 03/10/19 01:11 71 15 100 Facial 30 03/10/19 00:00 Nasal Cannula 3.0 03/10/19 00:00 30.0 03/10/19 00:00 70 03/10/19 00:00 98.1 72 20 124/58 (80) 99 03/09/19 22:45 79 31 100 Facial 30 03/09/19 20:00 Nasal Cannula 3.0 03/09/19 20:00 30.0 03/09/19 20:00 69 03/09/19 20:00 98.0 73 20 99/53 (68) 99 03/09/19 19:18 68 20 100 Nasal Cannula 3.0 32 03/09/19 19:08 66 20 98 Nasal Cannula 3.0 32 03/09/19 19:07 98 Nasal Cannula 3.0 32 03/09/19 17:00 74 22 107/53 (71) 100 03/09/19 16:00 4.0 03/09/19 16:00 97.0 77 22 110/55 (73) 100 03/09/19 16:00 71 03/09/19 16:00 Nasal Cannula 3.0 03/09/19 15:00 85 25 114/52 (72) 100 03/09/19 15:00 73 26 100 Nasal Cannula 4.0 36 03/09/19 14:52 75 22 98 Nasal Cannula 4.0 36 03/09/19 14:00 97.0 61 22 131/108 (116) 100 03/09/19 13:00 66 21 137/70 (92) 100 03/09/19 12:00 99.2 75 24 116/55 (75) 100 03/09/19 12:00 76 03/09/19 12:00 Bi-pap 03/09/19 12:00 4.0 03/09/19 11:07 77 23 100 Nasal Cannula 4.0 36 03/09/19 11:00 73 25 136/58 (84) 100 03/09/19 11:00 72 23 100 Nasal Cannula 4.0 36 Status: awake Condition: critical HEENT: atraumatic Heart: HR/BP stable, regular Abdomen: active bowel sounds Decubiti: location Micro: Microbiology Date/Time Source Procedure Growth Status 03/08/19 11:50 Blood Blood Culture - Preliminary NO GROWTH AFTER 24 HOURS Resulted 03/08/19 11:40 Blood Blood Culture - Preliminary NO GROWTH AFTER 24 HOURS Resulted 03/07/19 21:30 Sputum Expectorated Gram Stain - Final Complete 03/07/19 21:30 Sputum Expectorated Sputum Culture - Final NORMAL UPPER RESPIRATORY SARA PRESENT Complete Accucheck: 108 Critical Care - Subjective ROS Limited/Unobtainable: No Interval Events: awake, dyspnic FI02: 32 Vent Support Breath Rate: 14 Vent Support Mode: AC Vent Tidal Volume: 450 Sputum Amount: Scant PEEP: 5.0 PIP: 13 Tube Feeding Amount: 30 I&O: Intake and Output 03/09/19 03/10/19 19:00 07:00 Intake Total 1705.0 ml 972.0 ml Output Total 1180 ml 2000 ml Balance 525.0 ml -1028.0 ml Intake Free Water 200 ml 200 ml IV Total 1175.0 ml 442.0 ml Tube Feeding 330 ml 330 ml Output Urine Total 1140 ml 2000 ml Stool Total 40 ml ET-Tube: 7.5 ET Position: 21 Labs: Laboratory Tests Test 03/10/19 03:20 White Blood Count 4.0 K/UL (4.8-10.8) L Red Blood Count 3.43 M/UL (4.20-5.40) L Hemoglobin 10.1 G/DL (12.0-16.0) L Hematocrit 30.3 % (37.0-47.0) L Mean Corpuscular Volume 88 FL (80-99) Mean Corpuscular Hemoglobin 29.3 PG (27.0-31.0) Mean Corpuscular Hemoglobin Concent 33.1 G/DL (32.0-36.0) Red Cell Distribution Width 14.5 % (11.6-14.8) Platelet Count 196 K/UL (150-450) Mean Platelet Volume 6.8 FL (6.5-10.1) Neutrophils (%) (Auto) 48.1 % (45.0-75.0) Lymphocytes (%) (Auto) 31.3 % (20.0-45.0) Monocytes (%) (Auto) 12.9 % (1.0-10.0) H Eosinophils (%) (Auto) 6.6 % (0.0-3.0) H Basophils (%) (Auto) 1.1 % (0.0-2.0) Sodium Level 144 MMOL/L (136-145) Potassium Level 4.1 MMOL/L (3.5-5.1) Chloride Level 108 MMOL/L (98-107) H Carbon Dioxide Level 27 MMOL/L (21-32) Anion Gap 9 mmol/L (5-15) Blood Urea Nitrogen 5 mg/dL (7-18) L Creatinine 0.6 MG/DL (0.55-1.30) Estimat Glomerular Filtration Rate mL/min (>60) Glucose Level 92 MG/DL (74-106) Calcium Level 9.0 MG/DL (8.5-10.1) Total Bilirubin 0.5 MG/DL (0.2-1.0) Aspartate Amino Transf (AST/SGOT) 16 U/L (15-37) Alanine Aminotransferase (ALT/SGPT) 18 U/L (12-78) Alkaline Phosphatase 112 U/L (46-116) Total Protein 5.5 G/DL (6.4-8.2) L Albumin 2.0 G/DL (3.4-5.0) L Globulin 3.5 g/dL Albumin/Globulin Ratio 0.6 (1.0-2.7) L Jenifer Patel MD Mar 10, 2019 10:57
[2019-03-10 12:00] VITALS: BP 128/5
[2019-03-10] MEDS ORDERED: Vancomycin 1.5 GM in NS 275 ML IVPB SCH (14:00)
[2019-03-10] MEDS ORDERED: Tubing IV Secondary IV ONE (15:02)
[2019-03-10] MEDS ORDERED: NS 275ml ONE ×2 (15:02→16:54)
--- NOTE | 2019-03-10 16:44 | Cardiac Electrophysiology PN ---
Assessment/Plan Assessment/Plan 1. S/P Septic shock. Lactic acid was 3.3. EF 50%. On Abx and off pressors 2. S/P Respiratory failure, extubated 3. UTI. 4. Dysphagia, status post PEG placement. 5. History of encephalopathy. 6. Diabetes. 7. Multinodular toxic goiter. 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 Is being transferred to [place] Objective Last 24 Hour Vital Signs Date Time Temp Pulse Resp B/P (MAP) Pulse Ox O2 Delivery O2 Flow Rate FiO2 03/10/19 16:08 100 20 100 Nasal Cannula 3.0 32 03/10/19 15:52 88 20 100 Nasal Cannula 3.0 32 03/10/19 12:00 3.0 03/10/19 12:00 97.7 84 19 128/5 (46) 100 03/10/19 12:00 Nasal Cannula 3.0 03/10/19 11:54 71 03/10/19 11:23 92 20 100 Nasal Cannula 3.0 32 03/10/19 11:11 95 20 93 Nasal Cannula 3.0 32 03/10/19 08:00 Nasal Cannula 3.0 03/10/19 08:00 74 03/10/19 08:00 3.0 03/10/19 07:26 75 20 100 Nasal Cannula 3.0 32 03/10/19 07:16 70 20 100 Nasal Cannula 3.0 32 03/10/19 07:12 77 20 99 Nasal Cannula 3.0 32 03/10/19 07:12 99 Nasal Cannula 3.0 32 03/10/19 04:00 30.0 03/10/19 04:00 Nasal Cannula 3.0 03/10/19 04:00 98.1 73 20 126/70 (88) 98 03/10/19 03:23 68 03/10/19 03:01 68 14 100 Facial 30 03/10/19 01:11 71 15 100 Facial 30 03/10/19 00:00 Nasal Cannula 3.0 03/10/19 00:00 30.0 03/10/19 00:00 70 03/10/19 00:00 98.1 72 20 124/58 (80) 99 03/09/19 22:45 79 31 100 Facial 30 03/09/19 20:00 Nasal Cannula 3.0 03/09/19 20:00 30.0 03/09/19 20:00 69 03/09/19 20:00 98.0 73 20 99/53 (68) 99 03/09/19 19:18 68 20 100 Nasal Cannula 3.0 32 03/09/19 19:08 66 20 98 Nasal Cannula 3.0 32 03/09/19 19:07 98 Nasal Cannula 3.0 32 03/09/19 17:00 74 22 107/53 (71) 100 Intake and Output 03/09/19 03/10/19 18:59 06:59 Intake Total 1835.0 ml 972.0 ml Output Total 1180 ml 2000 ml Balance 655.0 ml -1028.0 ml Intake Free Water 200 ml 200 ml IV Total 1275.0 ml 442.0 ml Tube Feeding 360 ml 330 ml Output Urine Total 1140 ml 2000 ml Stool Total 40 ml Laboratory Tests Test 03/10/19 03:20 03/10/19 13:00 White Blood Count 4.0 K/UL (4.8-10.8) L Red Blood Count 3.43 M/UL (4.20-5.40) L Hemoglobin 10.1 G/DL (12.0-16.0) L Hematocrit 30.3 % (37.0-47.0) L Mean Corpuscular Volume 88 FL (80-99) Mean Corpuscular Hemoglobin 29.3 PG (27.0-31.0) Mean Corpuscular Hemoglobin Concent 33.1 G/DL (32.0-36.0) Red Cell Distribution Width 14.5 % (11.6-14.8) Platelet Count 196 K/UL (150-450) Mean Platelet Volume 6.8 FL (6.5-10.1) Neutrophils (%) (Auto) 48.1 % (45.0-75.0) Lymphocytes (%) (Auto) 31.3 % (20.0-45.0) Monocytes (%) (Auto) 12.9 % (1.0-10.0) H Eosinophils (%) (Auto) 6.6 % (0.0-3.0) H Basophils (%) (Auto) 1.1 % (0.0-2.0) Sodium Level 144 MMOL/L (136-145) Potassium Level 4.1 MMOL/L (3.5-5.1) Chloride Level 108 MMOL/L (98-107) H Carbon Dioxide Level 27 MMOL/L (21-32) Anion Gap 9 mmol/L (5-15) Blood Urea Nitrogen 5 mg/dL (7-18) L Creatinine 0.6 MG/DL (0.55-1.30) Estimat Glomerular Filtration Rate mL/min (>60) Glucose Level 92 MG/DL (74-106) Calcium Level 9.0 MG/DL (8.5-10.1) Total Bilirubin 0.5 MG/DL (0.2-1.0) Aspartate Amino Transf (AST/SGOT) 16 U/L (15-37) Alanine Aminotransferase (ALT/SGPT) 18 U/L (12-78) Alkaline Phosphatase 112 U/L (46-116) Total Protein 5.5 G/DL (6.4-8.2) L Albumin 2.0 G/DL (3.4-5.0) L Globulin 3.5 g/dL Albumin/Globulin Ratio 0.6 (1.0-2.7) L Vancomycin Level Trough 16.1 ug/mL (5.0-12.0) H Microbiology Date/Time Source Procedure Growth Status 03/08/19 11:50 Blood Blood Culture - Preliminary NO GROWTH AFTER 24 HOURS Resulted 03/08/19 11:40 Blood Blood Culture - Preliminary NO GROWTH AFTER 24 HOURS Resulted 03/07/19 21:30 Sputum Expectorated Gram Stain - Final Complete 03/07/19 21:30 Sputum Expectorated Sputum Culture - Final NORMAL UPPER RESPIRATORY SARA PRESENT Complete Objective HEAD AND NECK: No JVD. LUNGS: Coarse rhonchi. CARDIOVASCULAR: Regular S1 and S2 with no murmur or gallop. ABDOMEN: Soft with PEG in place. EXTREMITIES: 1+ pitting edema. Rusty Garsia MD Mar 10, 2019 16:44
--- NOTE | 2019-03-10 17:57 | Internal Med Progress Note ---
Subjective Date of Service: Mar 10, 2019 Physician Name Harsha Arora Attending Physician Solomon Sotomayor MD Allergies: Coded Allergies: No Known Allergies (Unverified , 03/05/19) ROS Limited/Unobtainable: No Constitutional: Reports: no symptoms HEENT: Reports: no symptoms Cardiovascular: Reports: no symptoms Respiratory: Reports: no symptoms Gastrointestinal/Abdominal: Reports: no symptoms Genitourinary: Reports: no symptoms Neurologic/Psychiatric: Reports: no symptoms Subjective 88 YO F admitted with respiratory failure. Now pneumonia. Extubated 03/08/19; on BIPAP. Cover for Int med-Dr Sotomayor. GERALDO Objective Last Vital Signs Date Time Temp Pulse Resp B/P (MAP) Pulse Ox O2 Delivery O2 Flow Rate FiO2 03/10/19 16:08 100 20 100 Nasal Cannula 3.0 32 03/10/19 12:00 97.7 128/5 (46) Laboratory Tests Test 03/10/19 03:20 03/10/19 13:00 White Blood Count 4.0 K/UL (4.8-10.8) L Red Blood Count 3.43 M/UL (4.20-5.40) L Hemoglobin 10.1 G/DL (12.0-16.0) L Hematocrit 30.3 % (37.0-47.0) L Mean Corpuscular Volume 88 FL (80-99) Mean Corpuscular Hemoglobin 29.3 PG (27.0-31.0) Mean Corpuscular Hemoglobin Concent 33.1 G/DL (32.0-36.0) Red Cell Distribution Width 14.5 % (11.6-14.8) Platelet Count 196 K/UL (150-450) Mean Platelet Volume 6.8 FL (6.5-10.1) Neutrophils (%) (Auto) 48.1 % (45.0-75.0) Lymphocytes (%) (Auto) 31.3 % (20.0-45.0) Monocytes (%) (Auto) 12.9 % (1.0-10.0) H Eosinophils (%) (Auto) 6.6 % (0.0-3.0) H Basophils (%) (Auto) 1.1 % (0.0-2.0) Sodium Level 144 MMOL/L (136-145) Potassium Level 4.1 MMOL/L (3.5-5.1) Chloride Level 108 MMOL/L (98-107) H Carbon Dioxide Level 27 MMOL/L (21-32) Anion Gap 9 mmol/L (5-15) Blood Urea Nitrogen 5 mg/dL (7-18) L Creatinine 0.6 MG/DL (0.55-1.30) Estimat Glomerular Filtration Rate mL/min (>60) Glucose Level 92 MG/DL (74-106) Calcium Level 9.0 MG/DL (8.5-10.1) Total Bilirubin 0.5 MG/DL (0.2-1.0) Aspartate Amino Transf (AST/SGOT) 16 U/L (15-37) Alanine Aminotransferase (ALT/SGPT) 18 U/L (12-78) Alkaline Phosphatase 112 U/L (46-116) Total Protein 5.5 G/DL (6.4-8.2) L Albumin 2.0 G/DL (3.4-5.0) L Globulin 3.5 g/dL Albumin/Globulin Ratio 0.6 (1.0-2.7) L Vancomycin Level Trough 16.1 ug/mL (5.0-12.0) H Microbiology Date/Time Source Procedure Growth Status 03/08/19 11:50 Blood Blood Culture - Preliminary NO GROWTH AFTER 24 HOURS Resulted 03/08/19 11:40 Blood Blood Culture - Preliminary NO GROWTH AFTER 24 HOURS Resulted 03/07/19 21:30 Sputum Expectorated Gram Stain - Final Complete 03/07/19 21:30 Sputum Expectorated Sputum Culture - Final NORMAL UPPER RESPIRATORY SARA PRESENT Complete Intake and Output 03/09/19 03/10/19 18:59 06:59 Intake Total 1835.0 ml 972.0 ml Output Total 1180 ml 2000 ml Balance 655.0 ml -1028.0 ml Intake Free Water 200 ml 200 ml IV Total 1275.0 ml 442.0 ml Tube Feeding 360 ml 330 ml Output Urine Total 1140 ml 2000 ml Stool Total 40 ml Objective PHYSICAL EXAMINATION: VITAL SIGNS: Temperature 98.2, respirations 21, pulse 73, blood pressure 89/48. GENERAL: The patient is a well-developed and well-nourished female, who is intubated and sedated. HEENT: Eyes pupils equal and responsive to light and accommodation. Extraocular movements are intact. NECK: Supple without lymphadenopathy. CHEST: Nasal canula; Crackles in bilateral bases with expiratory wheezes. CARDIOVASCULAR: Regular rhythm and rate. S1 and S2 normal without murmurs, rubs, or gallops. ABDOMEN: Soft, nontender, nondistended. Positive bowel sounds. No evidence of hepatosplenomegaly. Currently, no rebound or guarding noted. EXTREMITIES: Negative for clubbing, cyanosis, or edema. RECTAL/GENITAL: Not performed. NEUROLOGIC: Unable to assess secondary to sedation. Assessment/Plan Assessment/Plan ASSESSMENT: This is an 88-year-old female. 1. Respiratory failure. 2. Left pneumonia. 3. Hypertension. 4. Diabetes type 2. 5. Renal insufficiency. 6. Alzheimer dementia. 7. Bipolar depression. 8. Sacral decubitus ulcer, stage IV. TREATMENT: 1. Respiratory failure/pneumonia. A Pulmonary consultation has been obtained with Dr. Jenifer Patel. The patient is currently extubated on venturi mask The patient has been started empirically on Zosyn and vancomycin. We will follow recommendations of Pulmonary. 2. Hypertension. The patient is currently hypotensive on Levophed. 3. Diabetes type 2. The patient has been placed on NovoLog sliding scale. 4. Renal insufficiency. 5. Alzheimer dementia. Continue Aricept as above. 6. Bipolar depression. Continue Risperdal as above. 7. Sacral decubitus ulcer stage IV. 8. The patient is a Full Code according to the POLST in the chart 9. Discharge to [facility] today Harsha Arora MD Mar 10, 2019 17:57
--- NOTE | 2019-03-11 11:29 | Discharge Summary ---
Discharge Summary Discharge Summary _ DATE OF ADMISSION: 03/05/2019 DATE OF DISCHARGE: 03/10/2019 DISCHARGED BY: Dr. Solomon Sotomayor CONSULTANTS: Dr. Rusty Hwang BRIEF HOSPITAL COURSE: Patient is an 88-year-old female, who is a resident of [facility]. The patient presented with chief complaint of shortness of breath. The patient became short of breath on 2018. EMS was called. Patient was transported to [facility] emergency room. She has medical history significant for hypertension, renal insufficiency, diabetes type 2, Alzheimer's dementia, bipolar depression and sacral decubitus ulcer stage IV. EMS stated patient had bilateral crackles in both lungs. She was started on CPAP without improvement. On arrival to ED, patient was hypotensive, and tachypneic. Patient was immediately intubated for airway protection. Blood work did not show any leukocytosis. Hemoglobin and hematocrit were stable. Electrolytes were within normal limits. Troponin negative. Lactic acid was elevated to 2.7. Urinalysis showed +3 leukocyte esterase, 60-80 urine WBC, 15- 20 urine RBC. ABG showed pH 7.2, PCO2 45, O2 sat 99.4 on ventilator. Chest x- ray showed patchy left lung airspace opacities. CTA of the chest showed left perihilar infiltrate. No evidence of PE. He was given 30 cc/kg fluid bolus. He was started on broad-spectrum IV antibiotics. He was then admitted to ICU in critical condition for sepsis, respiratory failure, UTI and pneumonia. Patient continued to be hypotensive. Patient had hypotension due to septic shock. She was sinus on the monitor. She was given IV bolus and needed to be started on IV pressors. ED physician inserted a central line through the right femoral. She was then started on levophed. She was continued on IV vancomycin and Zosyn. Echocardiogram done showed EF 50%. She was eventually tapered off IV pressors. Urine culture showed growth of Proteus mirabilis. Blood culture with gram- positive cocci, possible contaminants. Repeat blood culture was obtained. On 03/08/2019, she was eventually extubated. She was placed on Venturi mask and BiPAP as needed. Chest x-ray showed slightly increased interstitial prominence, stable left basilar pleural and parenchymal disease. Culture showed normal upper respiratory samm. Surveillance blood culture did not isolate any growth. Vancomycin was discontinued. She has a resurfaced stage IV sacral ulcer. She was provided with local skin care. She was tapered down to nasal cannula and was saturating well. She was eventually transferred to [facility]. FINAL DIAGNOSES: Acute hypoxemic respiratory failure status post intubation and extubation Septic shock Nosocomial pneumonia Probable UTI Acute toxic metabolic encephalopathy due to septic shock and underlying dementia Hypocalcemia Hypertension Type 2 diabetes Alzheimer's dementia Bipolar depression Resurfaced sacral decubitus ulcer, stage IV Dysphagia, status post PEG placement Multinodular toxic goiter DISPOSITION: Patient was [facility]. I have been assigned to complete a discharge summary on this account, I was not involved with the patient's management.--FRANCISCO Funes Jacqueline Robles NP Mar 11, 2019 11:29
== END 2019-03-10 16:55 | disposition other institution (70) | DRG 871 ==
LOC: EDBD 07:12 → EMR 07:37 → ICU 07:51 → EDBEDREQ 15:17 → 2W 03-09 18:12
PROC: 0BH18EZ Insertion of Endotracheal Airway into Trachea, Via Natural or Artificial Opening Endoscopic (ICD-10-PCS; principal; 2019-03-05)
PROC: 5A1945Z Respiratory Ventilation, 24-96 Consecutive Hours (ICD-10-PCS; principal; 2019-03-05)
PROC: 06HM33Z Insertion of Infusion Device into Right Femoral Vein, Percutaneous Approach (ICD-10-PCS; principal; 2019-03-05)
DX: A41.9 Sepsis, unspecified organism (principal); R65.21 Severe sepsis with septic shock; L89.154 Pressure ulcer of sacral region, stage 4; J96.02 Acute respiratory failure with hypercapnia; J96.01 Acute respiratory failure with hypoxia; J18.9 Pneumonia, unspecified organism; G92 Toxic encephalopathy; N39.0 Urinary tract infection, site not specified; E05.20 Thyrotoxicosis with toxic multinodular goiter without thyrotoxic crisis or storm; G30.9 Alzheimer's disease, unspecified; F02.80 Dementia in other diseases classified elsewhere, unspecified severity, without behavioral disturbance, psychotic disturbance, mood disturbance, and anxiety; E11.9 Type 2 diabetes mellitus without complications; E83.51 Hypocalcemia; I10 Essential (primary) hypertension; F31.9 Bipolar disorder, unspecified; R13.10 Dysphagia, unspecified; Z93.1 Gastrostomy status
CPT/HCPCS: 31500; 36415; 36600; 71045; 71275; 80048; 80053; 80061; 80202; 81003; 82164; 82550; 82553; 82803; 82962; 83036; 83605; 83735; 83880; 84100; 84443; 84484; 85025; 87040; 87070; 87081; 87086; 87181; 87205; 93306; 94002; 94003; 94640; 94660; 94664; 96361; 96365; 96368; 96375; 99285; J1815; J7620